=== PATIENT | male | born 1985 | race Caucasian/White ===

== ENCOUNTER 2019-12-05 12:12 | Emergency (ER) | payer OTHER, SELFPAY ==
[2019-12-05 12:13] VITALS: BP 128/82; PULSE 71; RESP 18; TEMP 36.9; O2SAT 98; BMI 38.5
--- NOTE | 2019-12-05 13:00 | XRR_ITS ---
PROCEDURE INFORMATION: Exam: XR Chest, 2 Views Exam date and time: 12/05/2019 1:13 PM Age: 34 years old Clinical indication: Cough with hemorrhage; Patient HX: HX of barretts esophagus, coughing up blood for 48 hours, not feeling good for 9 days TECHNIQUE: Imaging protocol: XR of the chest Views: 2 views. COMPARISON: No relevant prior studies available. FINDINGS: Lungs: Unremarkable. No consolidation. Pleural space: Unremarkable. No pleural effusion. No pneumothorax. Heart/Mediastinum: Unremarkable. No cardiomegaly. Bones/joints: No acute findings. XR/XR chest 2V* [id number] IMPRESSION: No acute findings.
--- NOTE | 2019-12-05 14:38 | W.ED.GENADLT ---
HPI - General Adult General: Chief complaint: General Medical Stated complaint: coughing up blood for 48hrs Time Seen by Provider: 12/05/19 14:26 Source: patient Mode of arrival: ambulatory Limitations: no limitations History of Present Illness: HPI narrative: Patient comes in today with complaints of cough and congestion for 9 days. Patient reports coughing today and noticing blood in the sputum. Patient appears well. Patient appears in no pain. Review of Systems General: Reports: 10 or more systems reviewed and unremarkable except in HPI and below Resp: Reports: productive cough PFSH ED PFSH: Social History Smoking and tobacco status: former smoker Physical Exam Const: COMMON NORMALS: no apparent distress and oriented x3 GENERAL APPEARANCE: cooperative HENMT: COMMON NORMALS: normocephalic, external ears normal, EAC's normal, TM's normal bilaterally and external nose normal HEAD & SCALP: normal to inspection and normocephalic FACE & SINUS: normal facial exam NOSE: external nose normal GENERAL EAR: hearing not grossly impaired EXTERNAL EAR: Yes external ears normal EXTERNAL AUDITORY CANAL: EAC's normal TYMPANIC MEMBRANE: TM's normal bilaterally MOUTH: oral and palatal mucosa normal THROAT: posterior oropharynx normal Eye: COMMON NORMALS: PERRL and EOMs intact bilaterally PUPIL: Yes PERRL Neck/C-Spine: COMMON NORMALS: full ROM and no lymphadenopathy Lymph: LYMPHATIC: no lymphedema noted Chest: COMMONS NORMALS: inspection of chest normal and palpation of chest normal Resp: COMMON NORMALS: normal respiratory effort and clear to auscultation bilaterally AUSCULTATION: clear to auscultation bilaterally Cardio: COMMON NORMALS: regular rate and regular rhythm RATE: regular rate RHYTHM: regular rhythm GI: COMMON NORMALS: normal to inspection, nondistended, normoactive bowel sounds and non-tender : COMMON NORMALS: Yes no CVA tenderness BLADDER/KIDNEY EXAM: Yes no CVA tenderness Back/Pelvis: COMMON NORMALS: no CVA tenderness and thoracic and lumbar spine normal to inspection Extremity: COMMON NORMALS: normal to inspection GENERAL: No edema Neuro: COMMON NORMALS: oriented x3, moves all extremities and no focal motor deficits Psych: COMMON NORMALS: mental status grossly normal and cooperative Skin: COMMON NORMALS: no rashes or lesions noted GENERAL SKIN EXAM: no rashes or lesions noted Course Vital Signs: Vital signs: Vital Signs Temperature 98.5 F 12/05/19 12:13 Pulse Rate 71 12/05/19 12:13 Respiratory Rate 18 12/05/19 12:13 Blood Pressure 128/82 12/05/19 12:13 Pulse Oximetry 98 12/05/19 12:13 MDM - General Adult MDM Narrative: Medical decision making narrative: Well-appearing male patient comes in today with complaints of cough with some blood in his sputum. On exam patient's respirations are even lungs are clear to auscultation. Abdomen soft nontender. Skin is warm and dry. Vital signs are normal. Differential diagnosis includes pneumonia, bronchitis, pulmonary emboli. Chest x-ray was normal. Patient reports no chest pain and shows no sign of discomfort or distress that would indicate pulmonary emboli. Suspect probable acute bronchitis we'll treat for acute bronchitis with recommendations to return for severe chest pain or worsening difficulty breathing. Patient reports understanding and agreed to plan. Discharge Plan Discharge Patient Disposition: Home, Self-Care Clinical Impression: Acute bronchitis Qualifiers: Bronchitis organism: unspecified organism Qualified Code(s): J20.9 - Acute bronchitis, unspecified Condition: Stable Prescriptions: New doxycycline hyclate 100 mg capsule 100 mg PO BID 10 Days Qty: 20 RF: 0 promethazine-DM 6.25-15 mg/5 mL syrup 5 ml PO Q6H PRN (Reason: cough) Qty: 120 RF: 0 Discharge Orders: Discharge Order (Routine); Ordered 12/05/19 Ordered By: Babak Wheatley Discharge Diet: Usual diet Discharge Activity: Increase activity as tolerated Patient Instructions: Acute Bronchitis (ED) Activity Restrictions/Additional Instructions: Drink plenty of fluids Take acetaminophen as needed for pain or fever Activity as tolerated Follow-up with primary care in one week Return to ER as needed for worsening symptoms Stand Alone Forms: Work/School Release Coding Level of Care Code ED Adult Protective Caseworker for Chg Fwd Exam Comprehensive
[2019-12-05] MEDS: dexamethasone 10 mg/mL INJ IM (14:52)
[2019-12-05] MEDS: doxycycline 100 mg Tablet PO (14:52)
[2019-12-05 15:27] VITALS: BP 140/91; PULSE 68; RESP 16; TEMP 36.8; O2SAT 97
== END 2019-12-05 15:28 | disposition home or self-care (01) ==
PROVIDERS: Emergency Provider Nurse Practitioner Family
DX: J20.9 Acute bronchitis, unspecified (principal); Z87.891 Personal history of nicotine dependence
CPT/HCPCS: 71046; 96372; 96375; 99281; 99283; J1100

== ENCOUNTER 2019-12-19 08:05 | Day surgery (SDC) | payer OTHER, SELFPAY ==
[2019-12-16 12:35] VITALS: BMI 38.3
[2019-12-19] VITALS (14 sets, daily range): BP systolic 102–133; BP diastolic 68–86; PULSE 80–96; RESP 14–22; TEMP 36.2–37.3; O2SAT 93–100
--- NOTE | 2019-12-19 08:30 | ANES.PREANE2 ---
Pre-Anesthetic Assessment Pre-Anesthetic Assessment: Height/Weight: Height 1.7 m Weight 111.13 kg Temp Pulse Resp BP Pulse Ox 97.3 F L 92 18 119/86 97 12/19/19 08:18 12/19/19 08:18 12/19/19 08:18 12/19/19 08:18 12/19/19 08:18 Preop Diagnosis: Umbilical hernia Proposed Procedure: Operation Date: 12/19/19 08:45 Proposed Procedures p Umbilical Hernia Repair w/ Mesh/open 43168 K42.9(Not Applicable) - Alexi Gill MD Was Beta Kiki taken within 24 hours: N/A Last intake: Intake Last Liquid Date 12/18/19 Last Liquid Time 18:00 Last Solid Date 12/18/19 Last Solid Time 18:00 Social: Social History: Alcohol (Several times a week) and No tobacco Exam: Pre-Anes Outpt Exam: alert, oriented x 3, clear to auscultation bilaterally and regular rate & rhythm Airway: Submandibular: WNL Cervical ROM: WNL MP: 1 Dentition: Full Additional comments: Dai Pulmonary: Pulmonary: None reported CV/HEM: CV/HEM: None reported : : None reported Hepatic: Hepatic: None reported GI: Comments: Crohn's Dz Metabolic: Metabolic: Morbid obesity and None reported Musc/skel: Musc/skel: None reported Neuropsych: Neuropsych: Anxiety Anesthetic Plan: ASA status: 2 Anesthesia: General Risk of > 500 ml blood loss (7ml/kg in children): No PFSH Anesthesia PFSH: Social History Smoking and tobacco status: former smoker Second hand smoke exposure: No Alcohol intake: never Adopted: No Caregiver/support person: Yes Lives independently: Yes Household members: spouse Housing: House Marital status: Data Anesthesia Cardiac Studies: No Data to Display
[2019-12-19] MEDS: sodium chloride 0.9% 1,000 ML 30 ML IV (08:34)
--- NOTE | 2019-12-19 10:15 | P.OP_ITS ---
Operative Report Date of procedure: December 19, 2019 Pre-op Diagnosis: Umbilical hernia Post-op diagnosis: same Procedure Done: Open repair of incarcerated umbilical hernia with Ventralight 3 x 3 inch mesh Specimens removed/disposition: Hernia sac Surgeon: Alexi Gill Anesthesia: General Estimated blood loss (mL): 10 Condition: stable Disposition: PACU Procedure: The patient was taken to the operating room and intubated under general anesthesia after IV antibiotic had been administered. The abdomen was prepped and draped in a sterile manner. Using a 15 blade the existing scar near the umbilicus was excised, subcutaneous tissue was divided using electrocautery and the hernia sac was identified. Using electrocautery the hernia sac was excised and the omentum within the hernia sac was reduced. Palpation of the adj acent abdominal wall through the hernia revealed couple of Algerian cheese defect superior and inferior to the umbilical hernia along the prior mini laparotomy scar. I therefore decided to place a mesh. 3 x 3 inch ventralight mesh was introduced and sutured to the abdominal wall as an underlay using 2-0 Prolene suture. The wound was irrigated with saline, hemostasis ensured and the fascia was approximated using 0 Vicryl suture. Subcutaneous tissue was approximated using 3-0 Vicryl suture and skin was closed using running subcuticular 4-0 Monocryl suture and surgical glue. 10 cc of 0.5% Marcaine was infiltrated around the incision. The patient was extubated and transferred to recovery room in stable condition.
--- NOTE | 2019-12-19 10:15 | W.PM.OPSUD ---
Surgery/Procedure H&P Update DATE OF PROCEDURE: December 19, 2019 DATE H&P PERFORMED: 12/13/19 H&P UPDATE INFORMATION: I have reviewed H&P completed within last 30 days, I have examined patient prior to procedure and No changes to prior documentation PREOP DIAGNOSIS: Umbilical hernia PLANNED PROCEDURE: Operation Date: 12/19/19 08:45 Proposed Procedures p Umbilical Hernia Repair w/ Mesh/open 75504 K42.9(Not Applicable) - Alexi Gill MD
--- NOTE | 2019-12-19 10:33 | SUR.PHASEI ---
1021 PATIENT TO PACU AT THIS TIME. RR EVEN AND UNLABORED. PLACED ON SIMPLE MASK AT 8L, SPO2 100%. DRESSING TO ABDOMEN, CDI.
[2019-12-19] MEDS: fentaNYL 50 mcg/mL INJ 2mL IVP (10:46)
--- NOTE | 2019-12-19 11:05 | SUR.PHASEI ---
1102 PATIENT TO OPS AT THIS TIME. RR EVEN AND UNLABORED. DRESSING TO ABDOMEN, CDI.
[2019-12-19] MEDS: HYDROcodone-acetaminophen 5-325 mg Tablet 1 TAB PO (11:25)
--- NOTE | 2019-12-19 12:16 | PM.PACU ---
PACU note Post-Anesthesia Exam: awake and vital signs stable Disposition: discharged
== END 2019-12-19 14:30 | disposition home or self-care (01) ==
PROVIDERS: PCP Nurse Practitioner; Visit Provider Surgery
PROC: (CPT 49587; principal; 2019-12-19 08:45)
DX: K42.0 Umbilical hernia with obstruction, without gangrene (principal); E66.01 Morbid (severe) obesity due to excess calories; Z68.38 Body mass index [BMI] 38.0-38.9, adult; F17.210 Nicotine dependence, cigarettes, uncomplicated; Z90.49 Acquired absence of other specified parts of digestive tract
CPT/HCPCS: 49587; 12345; 88302; J0690; J1100; J2405; J2704; J2710; J3010; J3490; J7030

== ENCOUNTER 2019-12-26 14:30 | Outpatient (CLI) | payer OTHER, SELFPAY ==
[2019-12-26 14:46] LABS: Add Urine Microscopic? NO
[2019-12-26 15:22] LABS: Bilirubin Urine Neg (NEGATIVE); Blood Urine Neg (Negative); Glucose Urine UA Norm (Normal); Ketones Urine Negative (Negative); Nitrate Urine Negative (Negative); Protein Urine Neg (Negative); Specific Gravity, Urine 1.015 (1.005-1.030); Urine Appearance Clear (CLEAR); Urine Color Yellow (Yellow); pH Urine 6.5 (5-7)
[2019-12-26 15:23] LABS: Leukocyte Esterase Urine Negative (Negative); Urobilinogen Urine Norm (Negative)
== END 2019-12-26 14:31 | disposition home or self-care (01) ==
LOC: LAB 14:34
PROVIDERS: PCP Nurse Practitioner; Visit Provider Surgery
DX: N99.89 Other postprocedural complications and disorders of genitourinary system (principal); Z98.890 Other specified postprocedural states; R39.198 Other difficulties with micturition
CPT/HCPCS: 81003; 87086

== ENCOUNTER 2020-03-08 11:19 | Outpatient (CLI) | payer OTHER, SELFPAY | END 2020-03-08 11:20 | disposition home or self-care (01) | LOC: LAB 11:22 | PROVIDERS: PCP Nurse Practitioner; Visit Provider Internal Medicine | DX: K52.9 Noninfective gastroenteritis and colitis, unspecified (principal); K50.818 Crohn's disease of both small and large intestine with other complication; E03.9 Hypothyroidism, unspecified; R63.4 Abnormal weight loss; R09.1 Pleurisy | CPT/HCPCS: 80053; 83630; 84443; 85025; 85651; 86140; 87493; 87506 ==

== ENCOUNTER 2020-05-09 10:05 | Outpatient (CLI) | payer OTHER, SELFPAY ==
[2020-05-09] MEDS: iohexol 300 mg/mL 50 mL Btl PO (10:28)
[2020-05-09] MEDS: iohexol 300 mg/mL 100 mL Btl IV (11:42)
--- NOTE | 2020-05-09 13:00 | CT_ITS ---
WS: [id number] CT ABDOMEN AND PELVIS WITH CONTRAST HISTORY: Inflammatory bowel disease. TECHNIQUE: Imaging performed of the abdomen and pelvis with IV contrast. Single phase imaging of the abdomen. Coronal and sagittal reformats are submitted. All CT scans at [facility] use at least one of these dose optimization techniques: automated exposure control; mA and/or kV adjustment per patient size (includes targeted exams where dose is matched to clinical indication); or iterativ e reconstruction. IV CONTRAST: Omnipaque 300; 95 mL IV. Oral contrast: Yes. DLP: 1226.39 mGycm COMPARISON: None available. Lower thorax: Lung bases are clear. Heart is normal size. No hiatal hernia. Liver/biliary system: Diffuse moderate hepatic steatosis. Liver is moderately enlarged extending over a length of 20 cm. No mass or bile duct dilatation. Gallbladder: Normal. No gallstones or wall thickening. No pericholecystic fluid. Pancreas: Normal. Spleen: Normal. Adrenal glands: Normal. Right kidney: Normal. Left kidney: Normal. Aorta: Normal. Lymphadenopathy: None. Free fluid: None. GI tract: No GI tract obstruction. The appendix is not identified. No mucosal thickening or stricture s or areas of dilatation. No inflammatory changes. Abdominal wall: Fat-containing umbilical hernia. Pelvis: Normal. Bones: Mild degenerative disc disease at L4-5. CT/CT abdomen pelvis w con* [id number] IMPRESSION: 1. No GI tract obstruction or acute inflammatory process identified on today's examination. 2. Moderate hepatomegaly and diffuse hepatic steatosis.
== END 2020-05-09 10:06 | disposition home or self-care (01) ==
LOC: RADWPI 10:09
PROVIDERS: PCP Nurse Practitioner; Visit Provider Internal Medicine
DX: K63.89 Other specified diseases of intestine (principal); R16.0 Hepatomegaly, not elsewhere classified; K76.0 Fatty (change of) liver, not elsewhere classified
CPT/HCPCS: 74177; Q9967

== ENCOUNTER 2020-08-21 14:40 | Outpatient (RCR) | payer OTHER, SELFPAY | END 2020-09-10 23:59 | disposition home or self-care (01) | LOC: SPT 14:40 | PROVIDERS: PCP Nurse Practitioner; Visit Provider Family Medicine Adult Medicine | DX: R07.89 Other chest pain (principal); Z91.81 History of falling | CPT/HCPCS: 97110; 97161 ==

== ENCOUNTER 2020-09-11 06:00 | Outpatient (RCR) | payer OTHER, SELFPAY | END 2020-10-11 23:59 | disposition home or self-care (01) | LOC: SPT 06:00 | PROVIDERS: PCP Nurse Practitioner; Visit Provider Family Medicine Adult Medicine | DX: R07.89 Other chest pain (principal); Z91.81 History of falling | CPT/HCPCS: 97110; 97530 ==

== ENCOUNTER 2023-04-21 09:18 | Outpatient (CLI) | payer OTHER, SELFPAY ==
--- NOTE | 2023-04-21 09:28 | CTR_ITS ---
PROCEDURE INFORMATION: Exam: CT Abdomen And Pelvis With Contrast Exam date and time: 04/21/2023 10:29 AM Age: 37 years old Clinical indication: Abdominal pain; Prior surgery; Surgery date: 6+ months; Surgery type: Colon; Additional info: Abd pain/hx of crohn's dz.No history of trauma or recent surgery is provided. TECHNIQUE: Imaging protocol: Computed tomography of the abdomen and pelvis with contrast. 218image(s) are provided. Radiation optimization: All CT scans at this facility use at least one of these dose optimization techniques: automated exposure control; mA and/or kV adjustment per patient size (includes targeted exams where dose is matched to clinical indication); or iterative reconstruction. Contrast material: OMNI 350; Contrast volume: 95 ml; Contrast route: INTRAVENOUS (IV); Other technique: Axial images are available with sagittal and coronal reconstruction views. Automated dose exposure control is utilized. The DLP is 737.06. REPORTING DATA: Count of CT and Cardiac NM exams in prior 12 months: This patient has received 0 known CTs and 0 known cardiac nuclear medicine studies in the 12 months prior to the current study. COMPARISON: CT abdomen pelvis w con* [id number] 05/09/2020 11:40 AM RADIATION DOSE METRICS: Total DLP (mGy-cm): 737.06 FINDINGS: Lungs: No lobar consolidation is appreciated. Liver: There is some hepatic steatosis appearance overall. Gallbladder and bile ducts: The gallbladder is slightly contracted. Pancreas: No interval pancreatic ductal dilatation or calcification is appreciated with subtle fatty replacement of the pancreatic head uncinate level. Spleen: Unremarkable. Adrenal glands: There is some chronic bandlike calcific appearance about the right adrenal medially similar overall. Kidneys and ureters: There is homogeneous overall renal parenchymal enhancement demonstrated bilaterally with no interval radiopaque obstructive calculus or hydronephrosis appreciated. Stomach and bowel: Some aspects of the colon are undistended. This may also be peristaltic related.There is some stool present limiting mucosal detail evaluation.The bowel gas pattern appears nonobstructive. There is a small sliding-type hiatal hernia demonstrated with slight gastroesophageal fold thickening. Appendix: The appendix is not definitively identified for evaluation with what appear to be adjacent interventional clips. Intraperitoneal space: No free air or free fluid collections are appreciated. Vasculature: No abdominal aortic aneurysmal dilatation or periaortic fluid is appreciated. Lymph nodes: There are subcentimeter predominant para-aortic and mesenteric lymph nodes overall present. Urinary bladder: The bladder is incompletely fluid filled for evaluation which may exagerate the wall thickness. This can also be seen with post inflammation sequela. Reproductive: Unremarkable as visualized. Bones/joints: Osseous alignment is maintained.No interval displaced fracture or dislocation is appreciated. There is some degenerative lumbar disc space changes present. Soft tissues: No radiopaque foreign body or subcutaneous emphysema is appreciated. There is some periumbilical lipomatous eventration with postsurgical appearance with no interval bowel or fluid currently appreciated. Other findings: There is some motion artifact present. No other significant interval changes are appreciated. CT/CT abdomen pelvis w con* [id number] IMPRESSION: The bowel gas pattern appears nonobstructive overall with no interval fluid collections or acute inflammatory stranding changes are appreciated.
[2023-04-21] MEDS: iohexol 350 mg/mL 500 mL Btl (per mL) PO (10:23)
[2023-04-21] MEDS: iohexol 350 mg/mL 500 mL Btl (per mL) IV (10:34)
== END 2023-04-21 09:19 | disposition home or self-care (01) ==
PROVIDERS: PCP Nurse Practitioner; Visit Provider Nurse Practitioner
DX: R10.9 Unspecified abdominal pain (principal); K50.90 Crohn's disease, unspecified, without complications
CPT/HCPCS: 74177; Q9967

== ENCOUNTER → 2024-08-15 07:30 | Outpatient (BNVA) | payer OTHER, SELFPAY | PROVIDERS: PCP Nurse Practitioner; Visit Provider Podiatrist Foot & Ankle Surgery | DX: M72.2 Plantar fascial fibromatosis; M79.671 Pain in right foot; M76.71 Peroneal tendinitis, right leg | CPT/HCPCS: 73630; 99203 ==

== ENCOUNTER → 2024-09-26 09:19 | Outpatient (BNVA) | payer OTHER, SELFPAY | PROVIDERS: PCP Nurse Practitioner; Visit Provider Podiatrist Foot & Ankle Surgery | DX: M76.71 Peroneal tendinitis, right leg | CPT/HCPCS: 99213 ==

== ENCOUNTER 2025-05-03 15:43 | Inpatient (IN) | payer OTHER, SELFPAY ==
--- OUTSIDE RECORDS SUMMARY | 2014-02-14 19:00 | XMS_ITS | Continuity of Care Document ---
Author Organization [facility] Address [address] [place] [address] Phone Care Team Providers Care Genetic Counsellor Name Role Phone Nai Espinal NP Unavailable Unavailable Procedures Procedure Date OFFICE/OUTPATIENT VISIT EST OFFICE/OUTPATIENT VISIT EST OFFICE/OUTPATIENT VISIT EST OFFICE/OUTPATIENT VISIT NEW DRUG TEST NOT ORDERED - Advance Directives Directive Yes / No Effective Date File Name No Information Encounters Encounter Description Practice Location Reason(s) For Visit Diagnoses Date Provider Providers Copied on Encounter OFFICE/OUTPAT IENT VISIT [facility] [place] [address], [place], [place], [id number], [place] tel:[phone] [facility] No Information Teddy Trimble. [address], [place], [place], [id number], [place]. tel:[phone] OFFICE/OUTPAT [place]ENT VISIT [facility] [place] [address], [place], [place], [id number], [place] tel:[phone] [facility] No Information Teddy Trimble. [address], [place], [place], [id number], [place]. tel:[phone] OFFICE/OUTPAT IENT VISIT [facility] [place], [address], [place], [place], [id number], [place] tel:[phone] [facility] No Information Teddy Trimble. [address], [place], [place], [id number], [place]. tel:[phone] OFFICE/OUTPAT IENT VISIT [facility], [address], [place], [id number], [place] tel:[phone] [facility] No Information Bro Lu. [address], [place], [id number], [place]. tel:[phone] Family History Family Member Type Diagnosis Age At Onset No Information Payers Payer name Insurance type Covered alliance party ID Authoriza tidimitrios(s) [facility] [employer] [id number] Social History Type Description Quantity Date Captured Comments Sex Male Smoking Status No Information Chief Complaint And Reason For Visit No Information Reason For Referral Reason For Referral No Information History Of Present Illness Encounter Date Complaint History Of Prese nt Illness No Information Functional Status Date Functional Assessmen t No Information Instructions Date Instruction Additional Infor mation No Information Assessments Type Assessment Date No Information Patient Care Teams Name Effective Dates (start - stop) Status Members No Information
--- OUTSIDE RECORDS SUMMARY | 2024-07-18 06:30 | XMS_ITS | Encounter Summary ---
Author Name [facility] [place] [facility] [place] Address [address] [place] [address] Care Team Providers Care Ship'S Pilot Name Role Phone TIAGO OROZCO Primary Care Provider Unavaila HUMAIRA Travis Unavailable Unavailable ESTELLE ORELLANA Unavailable Unavailable JAZMÍN ZHENG Unavailable Unavailable MARITZA SWAN Unavailable Unavailable DILCIA MANRIQUEZ Unavailable Unavailable CRISTINA LACY Unavailable Unavailable JHONNY ANTON Unavailable Unavailable FAHAD OJEDA Primary Care Provider Unavail able Insurance Providers: All historical and current Section Date Range: From patient's date of to the date document was created. This section includes the names of all active insurance providers for the patient. Insurance Provider Type of Coverage Plan Name Start of Policy Coverage End of Policy Coverage Group Number Member ID Insurance Provider's Telephone Number Policy Lord's Name Patient's Relationship to Policy Lord [employer]UE CROSS FEP PREFERRED PROVIDER ORGANIZAT ION (PPO) [id number]* May 22, 2013 [id number] Ana TORRES PATIENT BLUE CROSS FEP PREFERRED PROVIDER ORGANIZAT ION (PPO) [id number] May 22, 2013 [id number] Ana TORRES PATIENT BLUE SHIELD FEP PREFERRED PROVIDER ORGANIZAT ION (PPO) [id number] May 22, 2013 [id number] Ana TORRES PATIENT BLUE SHIELD FEP PREFERRED PROVIDER ORGANIZAT ION (PPO) [id number] May 22, 2013 33B [id number] [phone] Ana TORRES PATIENT [place] [employer] RX [id number] PRESCRIPT ION [id number] May 22, 2013 [id number] Ana TORRES PATIENT [employer] FEP RX [id number] PRESCRIPT ION [id number] May 22, 2013 [id number] Ana TORRES PATIENT Selected Encounter This section includes the information on record at [place] for the Encounter. Date/Time Encounter Type Encounter Description Reason Provider Source Jul 18, 2024 11:30 AM OFF/OP EST FEBRUARY X REQ PHY/QHP PRIMARY CARE/MEDICINE ICD-10-CM M79.671 Pain in right foot CHRIS CORDERO [place] Encounter Template Text not used by [facility] Assessments - Encounter Diagnoses This section includes the primary and secondary diagnoses documented for the Encounter. Date/Time Primary/Secondary Diagnosis Diagnosis Name Provider Source Jul 18, 2024 02:23 PM PRIMARY Pain in right foot CHRIS CORDERO [facility] Plan of Treatment: Future Appointments (+ 6 months) and Future Tests (+/- 45 days) The Plan of Treatment section includes future care activities for the patient from all [place] treatmentfacilities. This section includes future appointments and future orders which are active, pending or scheduled. Future Appointments This section includes appointments that were scheduled to occur 6 months from the date of the Encounter, up to a maximum of 20 appointments. The data comes from all [place] treatment facilities. Appointment Date/Time Appointment Type Appointme nt Facility Name Jul 26, 2024 10:10 AM AMBULATORY - NONE [place] [facility] Aug 01, 2024 01:30 PM AMBULATORY - MEDICINE [facility] Aug 08, 2024 09:00 AM AMBULATORY - MEDICINE [place] [facility] Sep 02, 2024 03:00 PM AMBULATORY - MEDICINE [facility] Sep 12, 2024 01:30 PM AMBULATORY - MEDICINE [facility] Sep 16, 2024 10:30 AM AMBULATORY - MEDICINE [facility] Oct 17, 2024 10:00 AM AM[facility]ULATORY [place]IC[place] [facility] Nov 07, 2024 10:00 AM [facility] [place]IC[place] [facility] [facility] Nov 21, 2024 10:00 AM [facility] [place] [facility] [facility] Nov 21, 2024 10:30 AM [facility] [place] [facility] [facility] Nov 22, 2024 11:30 AM AMBULATORY - MEDICINE [facility] Nov 22, 2024 11:45 AM [facility] [place] [facility] [facility] Nov 30, 2024 02:00 PM [facility] [place] [facility] [facility] Dec 05, 2024 09:00 AM AMBULATORY - MEDICINE [facility] Dec 09, 2024 09:30 AM AMBULATORY - MEDICINE [place] [facility] Dec 09, 2024 03:30 PM [facility] [place]IC[place] [facility] Jan 03, 2025 10:00 AM AMBULATORY - MEDICINE [place] [facility] Vital Signs: All taken on the encounter date This section contains inpatient and outpatient Vital Signs collected on the date of the Encounter. Date/Time Temperature Pulse Blood Pressure Respiratory Rate SP02 Pain Height Weight Body Mass Index Source Jul 18, 2024 01:59 PM 98.2 62 116/78 18 97 [facility] Social History: Smoking Status (Most current) and Tobacco Use (All prior to encounter date) This section includes the most current, and the historical, smoking and tobacco- related health factors from the [place] facility where the Encounter took place. Current Smoking Status This section includes the most current smoking, or tobacco-related health factor, from the [place] facility where the Encounter took place. Date/Time Current Smoking Status Comment Facil ity Nov 18, 2023 10:00 AM VA-TOBACCO FORMER USER [facility] Tobacco Use History This section includes a history of the smoking, or tobacco-related health factors, that were collected on or before the date of the Encounter. The data comes from the [place] facility where the Encounter took place. Date/Time Smoking Status/Tobacco Use Comment F acility Nov 18, 2023 10:00 AM VA-TOBACCO QUIT 5 TO < 15 YRS [facility] Sep 01, 2022 10:30 AM VA-TOBACCO NEVER USED [facility] Sep 30, 2021 10:30 AM [facility] Sep 30, 2021 10:30 AM VA-TOBACCO QUIT 5 TO < 15 YRS [facility] Dec 05, 2019 11:23 AM VA-TOBACCO FORMER USER [facility] [facility] Dec 05, 2019 11:23 AM [place] QUIT 5 TO < 15 YRS [facility] Advance Directives: All historical and current Section Date Range: From patient's date of to the date document was created. This section includes ALL of a patient's completed or amended [place] Advance and Rescinded Directives. The entries below indicate that a directive exists for the patient, but an actual copy is not included with this document. The data comes from all [place] facilities. Date Advance Directives Provider Source Jan 09, 2025 ADVANCE DIRECTIVE JONATHAN KRUEGERU [facility] Dec 19, 2021 ADVANCE DIRECTIVE JONATHAN KRUEGERU [facility] Radiology Reports: +/- 30 days of the encounter Radiology Reports For cases when an order for radiology services may have been completed prior to the date of the Encounter, the report list includes the Radiology Reports that were completed up to 30 days before dateof the Encounter. For cases when an order for radiology services may have been completed after the date of the Encounter, the report list also includes the Radiology Reports that were completed up to30 days after date of the Encounter. The data comes from all [place] treatment facilities. 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 No fracture or dislocation. No bony destruction. Early degenerative changes. Impression: Early degenerative changes Primary Interpreting Staff: OLEGARIO B ESTEPHANIA, RADIOLOGIST (Tow Truck Driver, no e-sig) /OLEGARIO Reyes [facility] Encounter Notes: All associated encounter notes This section contains the clinical notes associated to the Encounter. Date/Time Encounter Note(s) Provider Source Jul 20, 2024 07:09 PM ADDENDUM: LOCAL TITLE: Addendum STANDARD TITLE: ADDENDUM DATE OF NOTE: JUL 20, 2024@19:09:34 ENTRY DATE: JUL 20, 2024@19:09:35 AUTHOR: FAHAD OJEDA EXP COSIGNER: URGENCY: STATUS: COMPLETED Xray results as follows: Impression: Early degenerative changes Continue nsaids and rest. Supportive shoes will help. I know rest is not in his vocabulary.....but arthritis is definitely in his foot. Let me know if it does not improve. /lyn/ [facility] Signed: 07/20/2024 19:11 Receipt Acknowledged By: 07/21/2024 11:21 /es/ [facility] --- Original Document --- 07/18/24 NURSING NOTE PB: This is a 39 year old MALE with known Allergies as noted: PENICILLIN, ANTHRAX VACCINE C/C: reported to the clinic for right foot pain S: stated that his right foot has been sore for three months on the top right side of his foot. stated that he has not injured his foot that he knows of. The pain increases when he flexes his foot up and down. On the following Active Medications: Active Outpatient Medications (including Supplies): Active Outpatient Medications Status 1) ALBUTEROL 90MCG (CFC-F) 200D ORAL INHL INHALE 2 PUFFS ACTIVE ORAL INHALATION FOUR TIMES A DAY NEEDED FOR ASTHMA SHAKE WELL. RINSE MOUTHPIECE FREQUENTLY TO PREVENT CLOGGING. 2) BALSALAZIDE DISODIUM 750MG CAP TAKE ONE CAPSULE BY ACTIVE MOUTH THREE TIMES A DAY FOR BOWEL INFLAMMATION 3) CHOLECALCIF 50MCG (D3-2,000UNIT) TAB TAKE ONE TABLET ACTIVE BY MOUTH ONCE A DAY FOR VITAMIN D DEFICIENCY 4) FLUOXETINE HCL 20MG CAP TAKE TWO CAPSULES BY MOUTH ACTIVE EVERY MORNING FOR MOOD 5) LOPERAMIDE HCL 2MG CAP TAKE ONE CAPSULE BY MOUTH ACTIVE TWICE DAILY NEEDED FOR DIARRHEA 6) MIRTAZAPINE 30MG TAB TAKE ONE TABLET BY MOUTH AT ACTIVE BEDTIME FOR MOOD 7) PANTOPRAZOLE NA 40MG EC TAB TAKE ONE TABLET BY MOUTH ACTIVE EVERY MORNING BEFORE A MEAL FOR GASTROESOPHAGEAL REFLUX DISEASE TAKE 30 MINUTES BEFORE MEAL(S) O: ambulated into the clinic without assistance. Steady gait. Alert and oriented x4. Unlabored breathing. Right foot no swelling, bruising, redness, warmth, or deformity noted. A/P: Right foot x-ray ordered. Maxwell advised to use supportive care at this time heat/ice, topical analgesic rub, rest, and that the Provider will review x-ray and I will contact him with results and recommendations. Maxwell voiced understanding. Maxwell escorted to lab waiting area. RTC: as needed /lyn/ Thad Cordero RN [facility], AníbalNitish [facility] Signed: 07/18/2024 14:23 Receipt Acknowledged By: 07/20/2024 19:08 /lyn/ [facility] 07/21/2024 ADDENDUM STATUS: UNSIGNED You may not VIEW this UNSIGNED Addendum. FAHAD OJEDA Jul 18, 2024 02:04 PM NURSING PROGRESS N OTE: LOCAL TITLE: NURSING NOTE PB STANDARD TITLE: NURSING PROGRESS NOTE DATE OF NOTE: JUL 18, 2024@14:04 ENTRY DATE: JUL 18, 2024@14:04:38 AUTHOR: THAD CORDERO COSIGNER: URGENCY: STATUS: COMPLETED NURSING NOTE PB Has ADDENDA This is a 39 year old MALE with known Allergies as noted: PENICILLIN, ANTHRAX VACCINE C/C: reported to the clinic for right foot pain S: stated that his right foot has been sore for three months on the top right side of his foot. stated that he has not injured his foot that he knows of. The pain increases when he flexes his foot up and down. On the following Active Medications: Active Outpatient Medications (including Supplies): Active Outpatient Medications Status 1) ALBUTEROL 90MCG (CFC-F) 200D ORAL INHL INHALE 2 PUFFS ACTIVE ORAL INHALATION FOUR TIMES A DAY NEEDED FOR ASTHMA SHAKE WELL. RINSE MOUTHPIECE FREQUENTLY TO PREVENT CLOGGING. 2) BALSALAZIDE DISODIUM 750MG CAP TAKE ONE CAPSULE BY ACTIVE MOUTH THREE TIMES A DAY FOR BOWEL INFLAMMATION 3) CHOLECALCIF 50MCG (D3-2,000UNIT) TAB TAKE ONE TABLET ACTIVE BY MOUTH ONCE A DAY FOR VITAMIN D DEFICIENCY 4) FLUOXETINE HCL 20MG CAP TAKE TWO CAPSULES BY MOUTH ACTIVE EVERY MORNING FOR MOOD 5) LOPERAMIDE HCL 2MG CAP TAKE ONE CAPSULE BY MOUTH ACTIVE TWICE DAILY NEEDED FOR DIARRHEA 6) MIRTAZAPINE 30MG TAB TAKE ONE TABLET BY MOUTH AT ACTIVE BEDTIME FOR MOOD 7) PANTOPRAZOLE NA 40MG EC TAB TAKE ONE TABLET BY MOUTH ACTIVE EVERY MORNING BEFORE A MEAL FOR GASTROESOPHAGEAL REFLUX DISEASE TAKE 30 MINUTES BEFORE MEAL(S) O: ambulated into the clinic without assistance. Steady gait. Alert and oriented x4. Unlabored breathing. Right foot no swelling, bruising, redness, warmth, or deformity noted. A/P: Right foot x-ray ordered. Maxwell advised to use supportive care at this time heat/ice, topical analgesic rub, rest, and that the Provider will review x-ray and I will contact him with results and recommendations. voiced understanding. escorted to lab waiting area. RTC: as needed /lyn/ Thad Cordero RN [facility], [facility] Signed: 07/18/2024 14:23 Receipt Acknowledged By: 07/20/2024 19:08 /lyn/ Fahad Ojeda [facility] 07/20/2024 ADDENDUM STATUS: COMPLETED Xray results as follows: Impression: Early degenerative changes Continue nsaids and rest. Supportive shoes will help. I know rest is not in his vocabulary.....but arthritis is definitely in his foot. Let me know if it does not improve. /lyn/ Fahad Ojeda [facility] Signed: 07/20/2024 19:11 Receipt Acknowledged By: 07/21/2024 11:21 /lyn/ Thad Cordero RN [facility], [facility] 07/21/2024 ADDENDUM STATUS: COMPLETED Contacted Maxwell reviewed Provider's note. voiced understanding. /lyn/ Thad Cordero RN [facility], [facility] Signed: 07/21/2024 11:23 THAD CORDERO [facility]
--- OUTSIDE RECORDS SUMMARY | 2024-11-22 06:45 | XMS_ITS | Encounter Summary ---
Author Name [facility] Organization [facility] Address [address] [place] [address] Care Team Providers Care Curator [employer] Name Role Phone TIAGO OROZCO Primary Care [...] (PPO) [id number] 2* May 22, 2013 [id number] Ana TORRES PATIENT BLUE CROSS FEP PREFERRED PROVIDER ORGANIZAT ION (PPO) [id number] May 22, 2013 33B [id number] [phone] Ana TORRES PATIENT BLUE SHIELD FEP PREFERRED PROVIDER ORGANIZAT ION (PPO) [id number] 2 May 22, 2013 [id number] Ana TORRES PATIENT BLUE SHIELD FEP PREFERRED PROVIDER ORGANIZAT ION (PPO) [id number] May 22, 2013 33B [id number] [phone] Ana TORRES PATIENT CAREMARK FEP RX [id number] PRESCRIPT ION [id number] May 22, 2013 [id number] Ana TORRES PATIENT [place]EMARK FEP RX [id number] PRESCRIPT ION [id number] May 22, 2013 [id number] Ana TORRES PATIENT Selected Encounter This section includes the information on record at ME for the Encounter. Date/Time Encounter Type Encounter Description Reason Provider Source Nov 22, 2024 11:45 AM Outpatient Encounter PRIMARY CARE/MEDICINE ICD-10-CM Z00.01 Encounter for general adult medical exam w abnormal findings ENRIQUE OJEDA [employer] Encounter Template Text not used by ME Assessments - Encounter Diagnoses This section includes the primary and secondary diagnoses documented for the Encounter. 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 dysplasia MAAME OJEDA [facility] Nov 22, 2024 06:34 PM SECONDARY Crohn's disease of both small and lg int w unsp comp MAAME OJEDA [facility] Nov 22, 2024 06:34 PM SECONDARY Esophagitis, unspecified without bleeding MAAME OJEDA [facility] Nov 22, 2024 06:34 PM SECONDARY Hyperlipidemia, unspecified MAAME OJEDA NE [facility] Nov 22, 2024 06:34 PM SECONDARY Insomnia, unspecified MAAME OJEDA [facility] Nov 22, 2024 06:34 PM SECONDARY Major depressive disorder, single episode, unspecified MAAME OJEDA [facility] Plan of Treatment: Future Appointments (+ 6 months) and Future Tests (+/- 45 days) The Plan of Treatment section includes future care activities for the patient from all VA treatmentfacilities. This section includes future appointments and future orders which are active, pending or scheduled. Future Appointments This section includes appointments that were scheduled to occur 6 months from the date of the Encounter, up to a maximum of 20 appointments. The data comes from all [facility]. Appointment Date/Time Appointment Type Appointme nt Facility Name Nov 30, 2024 02:00 PM [facility] [place] [facility]IC[place] [facility] Dec 05, 2024 09:00 AM AMBULATORY - MEDICINE [facility] Dec 09, 2024 09:30 AM [facility] [place]IC[place] [facility] Dec 09, 2024 03:30 PM AMBULATORY - MEDICINE [facility] Jan 03, 2025 10:00 AM AMBULATORY - MEDICINE [place] [facility] Feb 06, 2025 01:30 PM [facility] February 28, 2025 09:00 AM AMBULATORY - MEDICINE [facility] February 28, 2025 10:30 AM AMBULATORY - MEDICINE [facility] March 02, 2025 10:30 AM [facility] Mar 29, 2025 02:00 PM AMBULATORY - NONE [place] [facility] Apr 07, 2025 12:00 PM AMBULATORY - MEDICINE [facility] Active, Pending, and Scheduled Orders This section includes a listing of several types of active, pending, and scheduled orders, including clinic medications orders, diagnostic test orders, procedure orders and consult orders; where the start date of the order is 45 days before the date of the Encounter or 45 days after the date of theEncounter. The data comes from all [facility]. Test Date/Time Test Type Test Details Facility Name Dec 09, 2024 04:14 PM Laboratory - Chemi stry Order POC UA (STL-PB-MA) URINE SP [facility] Lab Results: +/- 30 days of the encounter This section includes the Chemistry and Hematology Lab Results on record with ME for the patient. Radiology Reports and Pathology Reports are provided separately, in subsequent sections. Lab Results This section contains the Chemistry/Hematology Results that were resulted 30 days before or 30 daysafter the date of the Encounter. Date/Time Source Result Type Result - Unit Interpretation Reference Range Specimen Type Comment Dec 09, 2024 04:16 PM [facility] POC UA (STL-PB-MA) URINE Specimen Type: URINE No comment entered. Ordering Provider: FAHAD OJEDA Report Released Date/Time: Dec 09, 2024 04:23 PM Reporting Lab: [facility] [address] [facility] [address] Performing Lab: [facility] [address] [facility] [address] [facility] [address] PROTEIN POC UA Negative mg/dL Negative BLOOD POC UA Negative Negative LEUKOCYTES POC UA Negative Negative COLOR POC UA Yellow YELLOW SPEC GRAV POC UA 1.015 1.005-1.030 UROBILINOGEN POC UA 1.0 {Cameron'U}/dL 0 .1-1.0 BILIRUBIN POC UA Negative Negative KETONES POC UA Negative mg/dL Negative GLUCOSE POC UA Negative mg/dL Negative pH POC UA 7.5 5.0-8.0 NITRITE POC UA Negative Negative CLARITY POC UA Clear CLEAR Nov 22, 2024 12:[address] [facility] PROTEIN ELECTROPHORESIS BLOOD SERUM Specimen Type: SERUM Comment: Reference Range: None Detected NOTE: THIS RESULT IS FLAGGED ABNORMAL Evaluation reveals a restricted band (M-spike) migrating in the gamma globulin region. If not already requested, Immunofixation should be considered. Test Performed by [facility], [facility], [address] [place] [address] Santos Medley M.D., Ph.D., Director of Laboratories , [place] [id number] Ordering Provider: FAHAD OJEDA Report Released Date/Time: Nov 22, 2024 11:58 AM Reporting Lab: [place] [facility] [address] [place] [address] Performing Lab: [place] [facility] [address] [facility] ALPHA-1 GLOBULIN(SO-PB-STL) 0.3 g/dL 0.2 -0.3 ALPHA-2 GLOBULIN(SO-PB-STL) 0.8 g/dL 0.5 -0.9 BETA 1 GLOBULIN(SO-PB-STL) 0.4 g/dL 0.4- 0.6 GAMMA GLOBULIN (SO-PB-STL) 1.5 g/dL 0.8- 1.7 TOTAL PROTEIN (SO-PB-STL) 8.0 g/dL 6.1-8 .1 ALBUMIN(ELECTROPHORESIS 4.7 g/dL 3.8-4.8 BETA 2 GLOBULIN (SO-PB) 0.3 g/dL 0.2-0.5 INTERPRETATION (STL-PB) SEE NOTE H ABNORMAL PROTEIN BAND 1 (SO-PB-STL) 0.6 g/dL H Nov 22, 2024 12:[address] [facility] KAPPA/LAMBDA LIGHT CHAINS, TOTAL (PB) SERUM S pecimen Type: SERUM Comment: This assay provides a measurement of the total kappa and total lambda light chains, ie., the amount of free (unattached) light chain in circulation and the amount of light chain linked to heavy chain in intact immunoglobulin molecules. Assays for serum free light chain only, kappa and lambda with ratio, may be more useful in evaluating and managing light chain gammo- pathies including those associated with myeloma, lymphoproliferative disorders, and amyloidosis. Test Performed by [facility], [facility], [address] [place] [address] Santos Medley M.D., Ph.D., Director of Laboratories , [place] [id number] Ordering Provider: FAHAD OJEDA Report Released Date/Time: Nov 22, 2024 11:58 AM Reporting Lab: [place] [facility] [address] [facility] [place] [address] Performing Lab: [address] KAPPA/LAMBDA RATIO 0.63 L 1.29-2.55 KAPPA CHAINS (PB) 210 mg/dL 176-443 LAMBDA CHAINS (PB) 332 mg/dL H 91-240 Nov 22, 2024 12:[address] [facility] ANTI-NUCLEAR ANTIBODY (STL-PB) SERUM Specimen Type: SERUM No comment entered. Ordering Provider: FAHAD OJEDA Report Released Date/Time: Nov 22, 2024 11:58 AM Reporting Lab: [facility] [address] [facility] [address] Performing Lab: [facility] [address] [facility] [address] ANTI-NUCLEAR ANTIBODY (STL-PB) NEGATIVE Nov 22, 2024 12:[address] [facility] VITAMIN D, 25-HYDROXY SERUM Specimen Type: SE RUM No comment entered. Ordering Provider: FAHAD OJEDA Report Released Date/Time: Nov 22, 2024 11:58 AM Reporting Lab: [place] [facility] [address] [place] [address] Performing Lab: [place] [facility] [address] [place] [address] VITAMIN D, 25-HYDROXY 27.9 ng/mL L 30-96 Nov 22, 2024 12:[address] [facility] URINALYSIS (STL-PB) URINE Specimen Type: URIN E No comment entered. Ordering Provider: FAHAD OJEDA Report Released Date/Time: Nov 22, 2024 11:58 AM Reporting Lab: [place] [facility] [address] [place] [address] Performing Lab: [place] [facility] [address] [place] [address] URINE COLOR [place] Yellow U.BILIRUBIN NEGATIVE mg/dL Negative U.PH 6.0 5.0-8.0 APPEARANCE TURBID H Clear U.NITRITE NEGATIVE mg/dL Negative BUDDING YEAST MANY /[HPF] H Negative-Rare MUCUS RARE /[LPF] Negative-Rare AMORPHOUS CRYSTALS OCCASIONAL /[HPF] H Neg ative-Rare URN.GLUCOSE NORMAL mg/dL Negative URN.PROTEIN NEGATIVE mg/dL URN.UROBILINOGEN NORMAL mg/dL Normal URN.BLOOD NEGATIVE mg/dL Negative-Trace URN.KETONES NEGATIVE mg/dL Negative-Trac e URN.LEUK.EST. NEGATIVE Negative-Trace URN.SPECIFIC GRAVITY 1.032 H 1.005-1.029 Nov 22, 2024 12:[address] [facility] HGA1C BLOOD Specimen Type: BLOOD No comment entered. Ordering Provider: FAHAD OJEDA Report Released Date/Time: Nov 22, 2024 11:58 AM Reporting Lab: [place] [facility] [address] [place] [address] Performing Lab: [place] [facility] [address] [place] [address] HGA1C 5.3 4.0-6.0 Nov 22, 2024 12:[address] [facility] COMPREHENSIVE METABOLIC PANEL PLASMA Specimen Type: PLASMA No comment entered. Ordering Provider: FAHAD OJEDA Report Released Date/Time: Nov 22, 2024 11:58 AM Reporting Lab: [place] [facility] [address] [place] [address] Performing Lab: [place] [facility] [address] [place] [id number] CREATININE 0.77 mg/dL 0.7-1.3 UREA NITROGEN 23 mg/dL 9-25 GLUCOSE 111 mg/dL H 72-99 SODIUM 140 meq/L 136-145 POTASSIUM 3.8 meq/L 3.5-5 CHLORIDE 107 meq/L 98-107 CARBON DIOXIDE 22 meq/L 22-31 CALCIUM 9.0 mg/dL 8.4-10.4 PROTEIN 8.5 g/dL 6-8.6 ALBUMIN 4.6 g/dL 3.4-5 TOTAL BILIRUBIN 0.9 mg/dL 0.2-1.2 ALKALINE PHOSPHATASE 57 U/L 40-150 AST/SGOT 20 U/L 5-34 ALT/SGPT 22 U/L 8-40 EGFR (CKD-EPI 2020) 118 Nov 22, 2024 12:[address] [facility] CBC BLOOD Specimen Type: BLOOD No comment entered. Ordering Provider: FAHAD OJEDA Report Released Date/Time: Nov 22, 2024 11:58 AM Reporting Lab: [place] [facility] [address] [place] [facility] Performing Lab: [place] [facility] [address] [place] [facility] WBC 12.2 10*3/uL H 3.6-11.2 RBC 5.07 10*6/uL 4.10-5.70 HGB 14.5 g/dL 13.1-16.8 HCT 43.8 38.2-48.4 MCV 86.4 fL 80.0-100.0 MCH 28.6 pg 27.0-34.0 MCHC 33.1 g/dL 33.0-36.0 PLT 247 10*3/uL 150-400 MPV 11.9 fL H 7.5-11.2 RDW 14.0 11.8-15.1 LYMPHOCYTES, AUTO % 7.7 MONOCYTES, AUTO % 3.6 NEUTROPHILS, AUTO % 87.8 EOSINOPHILS, AUTO % 0.4 BASOPHILS, AUTO % 0.2 LYMPHOCYTES, ABSOLUTE 0.93 10*3/uL 0.77- 4.50 MONOCYTES, ABSOLUTE 0.44 10*3/uL 0.19-0. 8 NEUTROPHILS, ABSOLUTE 10.66 10*3/uL H 2.10 -8.00 EOSINOPHILS, ABSOLUTE 0.05 10*3/uL 0.00- 0.60 BASOPHILS, ABSOLUTE 0.03 10*3/uL 0.00-0. 20 IMMATURE GRANS, AUTO % 0.3 IMMATURE GRANS, AUTO ABS 0.04 10*3/uL 0. 00-0.05 Nov 22, 2024 12:[address] [facility] CHOLESTEROL PANEL (PB) PLASMA Specimen Type: P MICHELLE No comment entered. Ordering Provider: FAHAD OJEDA Report Released Date/Time: Nov 22, 2024 11:58 AM Reporting Lab: [place] [facility] [address] [place] [facility] Performing Lab: [place] [facility] [address] [place] [facility] CHOLESTEROL 208 mg/dL H 0-200 TRIGLYCERIDE 120 mg/dL 0-150 CALCULATED LDL 137.0 mg/dL HDL(New) 47.0 mg/dL H >40 HDL % OF TOTAL CHOLESTEROL (PB) 22.6 >25 Nov 22, 2024 12:[address] [facility] TSH (MA-PB) SERUM Specimen Typ e: SERUM No comment entered. Ordering Provider: FAHAD OJEDA Report Released Date/Time: Nov 22, 2024 11:58 AM Reporting Lab: [place] [facility] [address] [place] [facility] Performing Lab: [place] [facility] [address] [place] [address] TSH 0.494 u[IU]/mL 0.47-5 Vital Signs: All taken on the encounter date This section contains inpatient and outpatient Vital Signs collected on the date of the Encounter. Date/Time Temperature Pulse Blood Pressure Respiratory Rate SP02 Pain Height Weight Body Mass Index Source Nov 22, 2024 11:45 AM 98.2 81 120/81 18 96 212.1 33 [facility] Social History: Smoking Status (Most current) and Tobacco Use (All prior to encounter date) This section includes the most current, and the historical, smoking and tobacco- related health factors from the ME facility where the Encounter took place. Current Smoking Status This section includes the most current smoking, or tobacco-related health factor, from the ME facility where the Encounter took place. Date/Time Current Smoking Status Comment Facil ity Nov 18, 2023 10:00 AM VA-TOBACCO FORMER USER [facility] Tobacco Use History This section includes a history of the smoking, or tobacco-related health factors, that were collected on or before the date of the Encounter. The data comes from the ME facility where the Encounter took place. Date/Time Smoking Status/Tobacco Use Comment F acility Nov 18, 2023 10:00 AM VA-TOBACCO QUIT 5 TO < 15 YRS [facility] Sep 01, 2022 10:30 AM VA-TOBACCO NEVER USED [facility] Sep 30, 2021 10:30 AM VA-TOBACCO FORMER USER [facility] Sep 30, 2021 10:30 AM VA-TOBACCO QUIT 5 TO < 15 YRS [facility] Dec 05, 2019 11:23 AM VA-TOBACCO FORMER USER [facility] Dec 05, 2019 11:23 AM VA-TOBACCO QUIT 5 TO < [address] [facility] Advance Directives: All historical and current Section Date Range: From patient's date of to the date document was created. This section includes ALL of a patient's completed or amended ME Advance and Rescinded Directives. The entries below indicate that a directive exists for the patient, but an actual copy is not included with this document. The data comes from all ME facilities. Date Advance Directives Provider Source Jan 09, 2025 ADVANCE DIRECTIVE JONATHAN KRUEGER [facility] Dec 19, 2021 ADVANCE DIRECTIVE JONATHAN KRUEGER [facility] Radiology Reports: +/- 30 days of the [...] the Encounter. The data comes from all ME treatment facilities. 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 Heart size is normal. Impression: No acute process Primary Interpreting Staff: JUANITA STAPLETON RADIOLOGIST (Supportive Employment Case Manager, no e-sig) /JUANITA Young [facility] Encounter Notes: All associated encounter notes This section contains the clinical notes associated to the Encounter. Date/Time Encounter Note(s) Provider Source Nov 22, 2024 01:23 PM PRIMARY CARE NURSI NG NOTE: LOCAL TITLE: PRIMARY CARE NURSING PROGRESS NOTE (TEXT) NURSING P STANDARD TITLE: PRIMARY CARE NURSING NOTE DATE OF NOTE: NOV 22, 2024@13:23 ENTRY DATE: NOV 22, 2024@13:23:15 AUTHOR: THAD CORDERO EXP COSIGNER: URGENCY: STATUS: COMPLETED Established Patient VANESSA TORRES IS A 39 YEAR OLD MALE BEING SEEN IN CLINIC NOV 22, 2024. = = REASON FOR VISIT: Annual and N/V and loose stools Are you receiving care any where other than the ME? No HEALTH AND SURGICAL HISTORY: Does patient report using home oxygen? No CURRENT ACTIVE MEDICATIONS FOR REVIEW: Allergies/ADRs (Tool #5) FACILITY ALLERGY/ADR -------- [facility] ANTHRAX VACCINE [facility] PENICILLIN [facility] ANTHRAX VACCINE [facility] PENICILLIN [facility] ANTHRAX VACCINE [facility]ENIC[facility] PENICILLIN Med. Reconciliation (Tool #1) INCLUDED IN THIS LIST: Alphabetical list of active outpatient prescriptions dispensed from this ME (local) and dispensed from another ME or [facility] facility (remote) as well as inpatient orders (local pending and active), local clinic medications, locally documented non-VA medications, and local prescriptions that have or been discontinued in the past 90 days. Non-VA Meds Last Documented On: Data not found NOTE The display of VA prescriptions dispensed from another ME or [facility] facility (remote) is limited to active outpatient prescription entries matched to National Drug File at the originating site and may not include some items such as investigational drugs, compounds, etc. NOT INCLUDED IN THIS LIST: Medications self-entered by the patient into personal health records (i.e. [employer]) are NOT included in this list. Non-VA medications documented outside this ME, remote inpatient orders (regardless of status) and remote clinic medications are NOT included in this list. The patient and provider must always discuss medications the patient is taking, regardless of where the medication was dispensed or obtained. OUTPT ACETAMINOPHEN 325MG TAB (Status = Pending) TAKE TWO TABLETS BY MOUTH FOUR TIMES A DAY NEEDED CAUTION: DO NOT EXCEED 4000mg PER DAY ACETAMINOPHEN (APAP) FROM ALL MEDS. Login Date: 11/22/24 Qty/Days Supply: 100/13 Refills Ordered: 3 OUTPT ALBUTEROL 90MCG (CFC-F) 200D ORAL INHL (Status = Active) INHALE 2 PUFFS ORAL INHALATION FOUR TIMES A DAY NEEDED FOR ASTHMA SHAKE WELL. RINSE MOUTHPIECE FREQUENTLY TO PREVENT CLOGGING. Rx# [id number] Last Released: 07/28/24 Qty/Days Supply: Rx Expiration Date: 02/02/25 Refills Remainin Indication: FOR ASTHMA OUTPT BALSALAZIDE DISODIUM 750MG CAP (Status = Active) TAKE ONE CAPSULE BY MOUTH THREE TIMES A DAY FOR BOWEL INFLAMMATION Rx# [id number] Last Released: 07/28/24 Qty/Days Supply: 270 Rx Expiration Date: 05/19/25 Refills Remainin Indication: FOR BOWEL INFLAMMATION OUTPT CHOLECALCIF 50MCG (D3-2,000UNIT) TAB (Status = Active) TAKE ONE TABLET BY MOUTH ONCE A DAY FOR VITAMIN D DEFICIENCY Rx# [id number] Last Released: 07/26/24 Qty/Days Supply: 90 Rx Expiration Date: 05/19/25 Refills Remainin Indication: FOR VITAMIN D DEFICIENCY OUTPT FLUOXETINE HCL 20MG CAP (Status = Discontinued) TAKE TWO CAPSULES BY MOUTH EVERY MORNING FOR MOOD Rx# [id number] Last Released: 07/28/24 Qty/Days Supply: 180 Rx Expiration Date: 01/15/25 Refills Remainin OUTPT FLUOXETINE HCL 20MG CAP (Status = Pending) TAKE 3 CAPSULES BY MOUTH EVERY MORNING FOR MOOD Login Date: 11/22/24 Qty/Days Supply: 270/90 Refills Ordered: 3 OUTPT LOPERAMIDE HCL 2MG CAP (Status = Active) TAKE ONE CAPSULE BY MOUTH TWICE DAILY NEEDED FOR DIARRHEA Rx# [id number] Last Released: 07/28/24 Qty/Days Supply: 180 Rx Expiration Date: 05/19/25 Refills Remainin Indication: FOR DIARRHEA OUTPT MELOXICAM 15MG TAB (Status = Discontinued) TAKE ONE TABLET BY MOUTH ONCE A DAY Rx# [id number] Last Released: 09/21/24 Qty/Days Supply: Rx Expiration Date: 09/16/25 Refills Remainin OUTPT MELOXICAM 15MG TAB (Status = Discontinued) TAKE ONE TABLET BY MOUTH ONCE A DAY Rx# [id number] Last Released: 10/13/24 Qty/Days Supply: Rx Expiration Date: 09/27/25 Refills Remainin OUTPT MIRTAZAPINE 30MG TAB (Status = Active) TAKE ONE TABLET BY MOUTH AT BEDTIME FOR MOOD Rx# [id number] Last Released: 07/28/24 Qty/Days Supply: Rx Expiration Date: 01/15/25 Refills Remainin OUTPT PANTOPRAZOLE NA 40MG EC TAB (Status = Active) TAKE ONE TABLET BY MOUTH EVERY MORNING BEFORE A MEAL FOR GASTROESOPHAGEAL REFLUX DISEASE TAKE 30 MINUTES BEFORE MEAL(S) Rx# [id number] Last Released: 07/28/24 Qty/Days Supply: Rx Expiration Date: 05/19/25 Refills Remainin Indication: FOR GASTROESOPHAGEAL REFLUX DISEASE SUPPLIES PHARMACY TERMS AND POSSIBLE PATIENT ACTIONS INPT = ME inpatient order IV = ME intravenous medication OUTPT = ME outpatient prescription PHARMACY POSSIBLE PATIENT TERMS EXPLANATION ACTIONS -------- ---- ACTIVE A prescription that can be If you have refills, filled at the local VA pharmacy. you may request a refill of this prescription from your VA pharmacy. CLINIC A medication you received during If you have questions a visit to a VA clinic or about this medication emergency department. contact your VA healthcare team. DISCONTINUED A prescription your provider has Contact your VA stopped. It is no longer healthcare team if you available to be sent to you or need more of this picked up at the ME pharmacy medication. window. A prescription which is too old Contact your VA to fill. This does not refer to healthcare team if you the expiration date of the need more of this medication in the container. medication. NON-VA A medication that came from If this medication someplace other than a VA information is pharmacy. This may be a incorrect or out of prescription from either the VA date, please tell your or non VA providers that was VA healthcare team. filled outside the VA. Or, it may be an jezz-uzy-amekqkb (OTC), herbal, dietary supplements or sample medication. ON HOLD An active prescription that will Contact your VA not be filled until pharmacy pharmacy when you need resolves the issue. more of this medication. PARKED An active prescription that will Contact your VA not be filled until the patient pharmacy when you need requests it. this medication. PENDING This prescription order has been If you have been sent to the pharmacy for review instructed to start and is not ready yet. this medication now, contact your VA pharmacy. SUSPENDED An active prescription that is Contact your ME not scheduled to be filled yet. pharmacy if you need You should receive it before this medication now. you run out. Medication list reviewed with Patient Patient/Caregiver reports taking medications as ordered. IS PATIENT TAKING ANY OVER THE COUNTER MEDICATIONS, SUCH VITAMINS OR HERBAL SUPPLEMENTS, INCLUDING ANY MEDICATIONS PRESCRIBED BY ANOTHER PHYSICIAN? No Does patient have any new allergies to report since last visit? NO VITALS: TEMPERATURE: 98.2 F [36.8 C] (11/22/2024 11:45) BP: 120/81 (11/22/2024 11:45) RESP: 18 (11/22/2024 11:45) PULSE: 81 (11/22/2024 11:45) HT: 67 in [170.2 cm] (11/18/2023 10:11) WT: 212.1 lb [96.21 kg] (11/22/2024 11:45) BMI: 33.3 PAIN ASSESSMENT: (Most Recent Pain Score in Vitals Package: 0 (11/18/2023 10:11) ) The patient indicated that they and their close contacts have not traveled outside of the [place] in the past 21 days. The patient reports the following symptoms: No symptoms present The patient is not immunocompromised. The patient does not report having a history of Multi Drug Resistant Organism (MDRO) within the last five years. The patient does not report having been exposed to measles, chickenpox, or zoster in last 30 days. This patient's last pain assessment score was: 0 (11/18/2023 10:11). A detailed pain assessment showed the following: Pain characteristics (per patient's own words) Cramping Location of current pain Abdomen Onset/Duration of the current pain. Constant or variable? More than a year STRESS: Thank you for your service. Now let us serve you. At the [facility], we strive to provide you with exceptional health care that improves your health and well-being. Are you feeling sad, empty, or depressed? No Do you need to talk about things in your life that worry you or cause you stress? No Do you need to talk about personal problems, family problems, alcohol use, drug use, or mental or emotional illness? No SUICIDE SCREENING: The patient was asked, Over the past two weeks, how often have you been bothered by thoughts that you would be better off or of hurting yourself in some way? Not At All SPIRITUAL ASSESSMENT: Are there mu-ism practices or spiritual concerns you want the dairy science teacher, your physician, and other health care team members to immediately know about? No Patient advised to call the clinic for any concerns, questions, or symptoms. Patient and/or caregiver verbalized understanding of plan of care. Suicide Screen - V: C-SSRS Screening [place] Suicide Severity Rating Scale (C-SSRS) screener 1. Over the past month, have you wished you were or wished you could go to sleep and not wake up? Yes 2. Over the past month, have you had any actual thoughts of killing yourself? No 3. Over the past month, have you been thinking about how you might do this? Response not required due to responses to other questions. 4. Over the past month, have you had these thoughts and had some intention of acting on them? Response not required due to responses to other questions. 5. Over the past month, have you started to work out or worked out the details of how to kill yourself? Response not required due to responses to other questions. 6. If yes, at any time in the past month did you intend to carry out this plan? Response not required due to responses to other questions. 7. In your lifetime, have you ever done anything, started to do anything, or prepared to do anything to end your life (for example, collected pills, obtained a gun, gave away valuables, went to the roof but didn't jump)? No 8. If YES, was this within the past 3 months? Response not required due to responses to other questions. Depression Screening - V: Perform PHQ-2 A PHQ-2 screen was performed. The score was 6 which is a positive screen for depression. Over the past two weeks, how often have you been bothered by the following problems? 1. Little interest or pleasure in doing things Nearly every day 2. Feeling down, depressed, or hopeless Nearly every day Licensed Independent Provider notified of positive screen and need for follow-up. Name of provider notified: Fahad Ojeda APRN Homelessness/Food Insecurity Screen - DI,L,N,P,PH,PS,S,U: In the past 2 months, have you been living in stable housing that you own, rent, or stay in as part of a household? Yes - Living in stable housing. Are you worried or concerned that in the next 2 months you may NOT have stable housing that you own, rent, or stay in as part of a household? No - Not worried about housing near future The reports the following: Within the past 12 months, you worried whether your food would run out before you got money to buy more. Never true Within the past 12 months, the food you bought just didn't last and you didn't have money to get more. Never true /lyn/ Thad Cordero RN [facility], JJP [facility] Signed: 11/22/2024 13:26 THAD CORDERO [facility] Nov 22, 2024 12:12 PM PRIMARY CARE PROGR ESS NOTE: LOCAL TITLE: PRIMARY CARE CLINIC PROGRESS NOTE PB STANDARD TITLE: PRIMARY CARE PROGRESS NOTE DATE OF NOTE: NOV 22, 2024@12:12 ENTRY DATE: NOV 22, 2024@12:12:26 AUTHOR: FAHAD OJEDAIGNER: URGENCY: STATUS: COMPLETED PROVIDER ASSESSMENT DATE & TIME:Nov@12:12 CHIEF COMPLAINT: Annual physical, increase in stomach pain, depression. HISTORY OF PRESENT ILLNESS: Adams was seen originally as a walk in for an increase in his stomach pain and vomitting. He has chronic stomach pain and Crohns disease. He told the nurse and is tearful that he doesn't care if he dies and doesn't wake up. He signed papers and told his what to do if this happens. I know this well and he has felt like this before. He missed his annual appt scheduled for yesterday so I am seeing him today while he is here. He denies the need or desire for psychiatric hospitalization although he feels like life is not worth living. He states that he doesn't feel like faking his health is okay anymore. He states his stomach pain has worsened over the last month. He also has a history of Morfin's. He did not follow up on his consult last month regarding his scope. He works a lot and is under a lot of stress at work. He states that he is not going to kill himself today and has no plan, he just doesn't care if he wakes up. He makes good eye contact and his is supportive. He refuses to speak to a counselor today. He and I discussed his new medication, Meloxicam, from his pharmacist is an anti-inflammatory and may have aggravated his Morfin's and his stomach significantly and I want him to stop it immediately. It was started just a month ago and would explain a lot. He is agreeable. We will also check some labs. He is fearful he has some type of stomach cancer and wants to follow up on his scope. He states [facility] would be great for him. I discussed with him that I am concerned with his busy lifestyle that he may not go and he states that he will. We discussed the importance of putting his health first and making it a priority. We set this goal and also affirmed positive thought direction for when his anxiety is high. We are increasing his fluoxetine to 60mg. He wants to do his labs today and we are going to have closer follow up on his health. He denies the need for regular counseling. He feels like if it were not for the pain in his stomach for 15 years he would not have depression. was calmer and setting goals and could name several resources including the clinic as a walk in for help (states that is why he came today), the ER, the crisis line, and his . He was making good eye contact and had a plan for his health and follow up when he left. 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: 1) Hyperlipidemia (SCT 81282121) 2) Obesity (SCT 572708750) 3) Low Back Pain (SCT 560986576) 4) PTSD - Post-Traumatic Stress Disorder (SCT 00823152) 5) Depression (SCT 02400807) 6) Insomnia (SCT 393971944) 7) Tinnitus 8) Crohns disease 9) Sleep Apnea (SCT 05519108) 10) Chronic rhinitis 11) Chronic sinusitis 12) Morfin's esophagus with esophagitis 13) Hiatal hernia with gastroesophageal reflux 14) Exposure to potentially hazardous substance Active Outpatient Medications (including Supplies): Active Outpatient Medications Status 1) ALBUTEROL 90MCG (CFC-F) 200D ORAL INHL INHALE 2 PUFFS ORAL ACTIVE INHALATION FOUR TIMES A DAY NEEDED SHAKE WELL. RINSE MOUTHPIECE FREQUENTLY TO PREVENT CLOGGING. Indication: FOR ASTHMA 2) BALSALAZIDE DISODIUM 750MG CAP TAKE ONE CAPSULE BY MOUTH ACTIVE THREE TIMES A DAY Indication: FOR BOWEL INFLAMMATION 3) CHOLECALCIF 50MCG (D3-2,000UNIT) TAB TAKE ONE TABLET BY ACTIVE MOUTH ONCE A DAY Indication: FOR VITAMIN D DEFICIENCY 4) LOPERAMIDE HCL 2MG CAP TAKE ONE CAPSULE BY MOUTH TWICE DAILY ACTIVE NEEDED Indication: FOR DIARRHEA 5) MIRTAZAPINE 30MG TAB TAKE ONE TABLET BY MOUTH AT BEDTIME FOR ACTIVE MOOD 6) PANTOPRAZOLE NA 40MG EC TAB TAKE ONE TABLET BY MOUTH EVERY ACTIVE MORNING BEFORE A MEAL TAKE 30 MINUTES BEFORE MEAL(S) Indication: FOR GASTROESOPHAGEAL REFLUX DISEASE Pending Outpatient Medications Status 1) ACETAMINOPHEN 325MG TAB TAKE TWO TABLETS BY MOUTH FOUR TIMES PENDING A DAY NEEDED CAUTION: DO NOT EXCEED 4000MG PER DAY ACETAMINOPHEN (APAP) FROM ALL MEDS. Indication: FOR PAIN 2) FLUOXETINE HCL 20MG CAP TAKE THREE CAPSULES BY MOUTH EVERY PENDING MORNING FOR MOOD Indication: FOR DEPRESSION 8 Total Medications REVIEW OF SYSTEMS: HEENT: No Headache. No blurry vision, vision loss, eye pain, red eyes, or foreign body. No runnynose, congestion, or nose bleed. No hearing loss,ringing in the ears, or vertigo. No sore throat or dental pain. RESPIRATORY: No cough, SOA, wheezing, or sputum production. CARDIOVASCULAR: No chest pain, palpitations, tachycardia, PND, or orthopnea. GI: No abdominal pain, nausea, constipation, melena, or hematochezia. chronic vomitting and diarrhea. : No dysuria, hematuria, urinary frequency, weak stream, or post-void dribbling. MUSCULOSKELETAL:chronic joint pain. SKIN: No rash, lesions, or infection PSYCH: Depression, anxiety and hopelessnes. Not suicidal. PHYSICAL ASSESSMENT: VITAL SIGNS Pulse: 68 (09/16/2024 15:59) Blood Pressure: 119/89 (09/16/2024 15:59) Respiratory Rate: 18 (09/16/2024 15:59) Temperature: 97.9 F [36.6 C] (09/16/2024 15:59) Weight: 225.5 lb [102.29 kg] (09/16/2024 15:59) Height: 67 in [170.2 cm] (11/18/2023 10:11) Pain: 0 (11/18/2023 10:11) HEENT:PERRL, EOMI, Fundi benign, TM's clear, Pharynx not red and without exudate, tonsils normal size. NECK: Supple, no lymhadenopathy, thyroid normal. CARDIAC: Regular rate and rhythm without murmur. No edema. RESPIRATORY: CTA, BEBS GI: Abdomen soft,with ABS, no HSM, generalized bilateral lower quadrant tenderness. MUSCULOSKELETAL:No muscle or joint tenderness. FROM. SKIN: [place] without rash or lesions. NEUROLOGICAL: The is alert and oriented without distress. Affect tearful, brightened with interaction. Denies SI/HI and A/V hallucinations. IMPRESSION: Encounter for General Adult Medical Exam Crohns Disease-current Barretts Esophagus-current Depression-current Anxiety-current Insomnia-chronic Sleep Apnea-chronic PLAN: Plan of safety developed if SI returns. Increase water intake. Increase fluoxetine to 60mg daily. Stop Meloxicam. Labs today. Chest Xray today. Will refer to [facility]. Follow up in clinic in one month. Follow up for annual physical in one year. Continue healthy diet. Discussed crisis resources. Patient is advised this primary care clinic has open access and he can make a same day appointment anytime a problem/concern arises. Patient further advised he can be seen on a walk-in basis as needed. Patient is provided clinic contact information. Medications reviewed and reconciled. Discussed diet and exercise as relevant to patient conditions. Treatment plan as noted above and the After Visit Summary was reviewed with ; opportunity provided to report concerns and ask question regarding aspects of care or treatment or services; concurrence reached and verbalized understanding. Please refer to addendum or follow up lab letter for plan of care/changes related to lab/test results not available at conclusion of appointment, if any. Discussed with patient that in the event of community imaging / testing being ordered in the future, once the imaging / testing has been completed, please notify PACT of within 1 week by a [facility] member; this is due to intermittent lapses in notification of imaging completion within CPR[facility]. All questions answered; agrees to plan of care. Follow up as listed above, annually, and as needed. Keep all completion at outside facility if not called with results appointments. Medications Reconciled. Time spent 30 minutes. Follow-Up Pos PTSD/Depression - M,P,PH,PS,R,S,T: I have reviewed the results of the Mental Health screens and have evaluated the patient. Based on the evaluation, the following disposition plan will be implemented: Patient to be managed in Primary Care Comment: refused mental health services. medication adjusted Patient declines further intervention or evaluation at this time. Contact information and instructions for accessing emergency services provided. /lyn/ JAMI Greenberg CALLIE Christine Signed: 11/22/2024 18:23 Receipt Acknowledged By: 11/23/2024 08:25 /lyn/ ALDO ENGLE, RN [facility] 11/25/2024 10:18 /es/ FAHAD MANRIQUEZ RN
--- OUTSIDE RECORDS SUMMARY | 2025-01-09 03:58 | XMS_ITS ---
Author Name [facility] [facility] [place] Address [address] [place] [address] Care Team Providers Care Grinding Room Inspector Name Role Phone TIAGO OROZCO Primary Care [...] (PPO) [id number] 2* May 22, [phone] [id number] Ana TORRES PATIENT BLUE CROSS FEP PREFERRED PROVIDER ORGANIZAT ION (PPO) [id number] B May 22, 2013 [id number] Ana TORRES PATIENT BLUE SHIELD FEP PREFERRED PROVIDER ORGANIZAT ION (PPO) [id number] May 22, 2013 112 [id number] [phone] Ana TORRES PATIENT BLUE SHIELD FEP PREFERRED PROVIDER ORGANIZAT ION (PPO) [id number] B May 22, 2013 33B [id number] Ana TORRES PATIENT [place] FEP RX [id number] PRESCRIPT ION [id number] May 22, 2013 [id number] Ana TORRES PATIENT [place] FEP RX [id number] PRESCRIPT ION [id number] May 22, 2013 [id number] Ana TORRES PATIENT Selected Encounter This section includes the information on record at [place] for the Encounter. Date/Time Encounter Type Encounter Description Reason Pro vider Source Jan 09, 2025 08:58 AM Outpatient Encounter PRIMARY CARE/MEDICINE IHE Encounter Template Text not used by [place] Plan of Treatment: Future Appointments (+ 6 months) and Future Tests (+/- 45 days) The Plan of Treatment section includes future care activities for the patient [facility] [place] [facility] This section includes future appointments and future orders which are active, pending or scheduled. Future Appointments This section includes appointments that were scheduled to occur 6 months from the date of the Encounter, up to a maximum of 20 appointments. The data comes from all [facility]. Appointment Date/Time Appointment Type Appointme nt Facility Name Feb 06, 2025 01:30 PM AMBULATORY - MEDICINE [facility] February 28, 2025 09:00 AM AMBULATORY - MEDICINE [facility] February 28, 2025 10:30 AM [facility]ULATORY - MEDICINE [facility] March 02, 2025 10:30 AM [facility]ULATORY - MEDICINE [facility] Mar 29, 2025 02:00 PM AMBULATORY - NONE [facility] MARINELLI [facility] Apr 07, 2025 12:00 PM AMBULATORY - MEDICINE [facility] Active, Pending, and Scheduled Orders This section includes a listing of several types of active, pending, and scheduled orders, including clinic medications orders, diagnostic test orders, procedure orders and consult orders; where the start date of the order is 45 days before the date of the Encounter or 45 days after the date of theEncounter. The data comes from all [facility]. Test Date/Time Test Type Test Details Facility Name Dec 09, 2024 04:14 PM Laboratory - Chemi stry Order POC UA (STL-PB-MA) URINE SP [facility] Lab Results: +/- 30 days of the encounter This section includes the Chemistry and Hematology Lab Results on record with [place] for the patient. Radiology Reports and Pathology Reports are provided separately, in subsequent sections. Lab Results This section contains the Chemistry/Hematology Results that were resulted 30 days before or 30 daysafter the date of the Encounter. Date/Time Source Result Type Result - Unit Interpretation Reference Range Specimen Type Comment Jan 05, 2025 09:34 AM [facility] PROTEIN 24-HOUR URINE PANEL (MA-PB-STL) 24-HOUR URINE Specimen Type: 24-HOUR URINE No comment entered. Ordering Provider: MAURISIO OJEDA Report Released Date/Time: Jan 05, 2025 09:34 AM Reporting Lab: [place] [facility] [address] [facility] [id number] Performing Lab: [place] [facility] [address] [facility] [id number] VOLUME 1000 mL PROTEIN 24-HOUR URINE 130 mg/(24.h) 6.8- 299.9 UNCALCULATED URINE PROTEIN 13.0 mg/dL Jan 05, 2025 09:34 AM [facility] PROTEIN ELECTROPHORESIS URINE 24-HOUR URINE Specimen Type: 24-HOUR URINE Comment: Trace albumin present. Consistent with Normal pattern. Ordering Provider: FAHAD OJEDA Report Released Date/Time: Jan 05, 2025 09:34 AM Reporting Lab: [place] [facility] [address] [facility] [phone] Performing Lab: [place] [facility] [id number] [facility] VOLUME 1000 mL ALPHA-1 GLOBULIN(SO-PB-STL) 0 ALPHA-2 GLOBULIN(SO-PB-STL) 0 BETA 1 GLOBULIN(SO-PB-STL) 0 GAMMA GLOBULIN (SO-PB-STL) 0 TOTAL PROTEIN (SO-PB-STL) 130 <100 CREATININE (sendout) 2.21 H 0.50-2.15 ALBUMIN(ELECTROPHORESIS 100 PROTEIN/CREAT RATIO (PB-STL) 59 mg/g{creat} <100 INTERPRETATION (STL-PB) comment ABNORMAL PROTEIN BAND 1 (SO-PB-STL) No M-Mode d etected. ABNORMAL PROTEIN BAND 2 (SO-PB-STL) canc ABNORMAL PROTEIN BAND 3 canc [place] INTERPRETATION canc Advance Directives: All historical and current Section Date Range: From patient's date of to the date document was created. This section includes ALL of a patient's completed or amended [place] Advance and Rescinded Directives. The entries below indicate that a directive exists for the patient, but an actual copy is not included with this document. The data comes from all [place] facilities. Date Advance Directives Provider Source Jan 09, 2025 ADVANCE DIRECTIVE JONATHAN KRUEGER [facility] Dec 19, 2021 ADVANCE DIRECTIVE JONATHAN KRUEGER [facility] Encounter Notes: All associated encounter notes This section contains the clinical notes associated to the Encounter. Date/Time Encounter Note(s) Provider Source Jan 09, 2025 08:58 AM ADVANCE DIRECTIVE: LOCAL TITLE: ADVANCE DIRECTIVE STANDARD TITLE: ADVANCE DIRECTIVE DATE OF NOTE: JAN 09, 2025@08:58 ENTRY DATE: JAN 09, 2025@08:58:49 AUTHOR: JONATHAN KRUEGER EXP COSIGNER: URGENCY: STATUS: COMPLETED PACT SW received a completed and notarized [place] Advance Directive document. Document sent to scanning to be added to record. /lyn/ MIHAI Tracey,LENDING CONSULTANT Manager Talent Signed: 01/09/2025 08:59 JONATHAN KRUEGER [facility]
--- OUTSIDE RECORDS SUMMARY | 2025-02-06 08:30 | XMS_ITS | Encounter Summary ---
Author Name [facility] [place] [facility] [place] Address [address] [place] [address] Care Team Providers Care Freelance Designer Name Role Phone TIAGO OROZCO Primary Care [...] (PPO) [id number] 2* May 22, 2013 112 [id number] Ana TORRES PATIENT BLUE CROSS FEP PREFERRED PROVIDER ORGANIZAT ION (PPO) [id number] B May 22, 2013 33B [id number] 74 Ana TORRES PATIENT BLUE SHIELD FEP PREFERRED PROVIDER ORGANIZAT ION (PPO) [id number] 2 May 22, 2013 112 [id number] 74 Ana TORRES PATIENT BLUE SHIELD FEP PREFERRED PROVIDER ORGANIZAT ION (PPO) [id number] B May 22, 2013 33B [id number] Ana TORRES PATIENT CAREMARK FEP RX [id number] PRESCRIPT ION [id number] 500 May 22, 2013 [id number] Ana TORRES PATIENT CAREMARK FEP RX [id number] PRESCRIPT ION [id number] 500 May 22, 2013 [id number] [phone] Ana TORRES PATIENT Selected Encounter This section includes the information on record at [place] for the Encounter. Date/Time Encounter Type Encounter Description Reason Provider Source Feb 06, 2025 01:30 PM OFF/OP EST FEBRUARY X REQ PHY/QHP PRIMARY CARE/MEDICINE ICD-10-CM L98.9 Disorder of the skin and subcutaneous tissue, unspecified TOMEKA CORDERO [facility] Encounter Template Text not used by [place] Assessments - Encounter Diagnoses This section includes the primary and secondary diagnoses documented for the Encounter. Date/Time Primary/Secondary Diagnosis Diagnosis Name Provider Source Feb 06, 2025 02:20 PM PRIMARY Disorder of the skin and subcutaneous tissue, unspecified CASANDRA CORDERO [facility] Plan of Treatment: Future Appointments (+ 6 months) and Future Tests (+/- 45 days) The Plan of Treatment section includes future care activities for the patient from all [place] treatmentfacilities. This section includes future appointments and future orders which are active, pending or scheduled. Future Appointments This section includes appointments that were scheduled to occur 6 months from the date of the Encounter, up to a maximum of 20 appointments. The data comes from all [place] treatment facilities. Appointment Date/Time Appointment Type Appointme nt Facility Name February 28, 2025 09:00 AM AMBULATORY - MEDICINE [facility] February 28, 2025 10:30 AM AMBULATORY - MEDICINE [facility] March 02, 2025 10:30 AM AMBULATORY - MEDICINE [facility] Mar 29, 2025 02:00 PM AMBULATORY - NONE LIBBY MARINELLI [facility] Apr 07, 2025 12:00 PM AMBULATORY - MEDICINE [facility] Social History: Smoking Status (Most current) and Tobacco Use (All prior to encounter date) This section includes the most current, and the historical, smoking and tobacco- related health factors from the [place] facility where the Encounter took place. Current Smoking Status This section includes the most current smoking, or tobacco-related health factor, from the [place] facility where the Encounter took place. Date/Time Current Smoking Status Comment Antonio ity Nov 18, 2023 10:00 AM VA-TOBACCO FORMER USER [facility] Tobacco Use History This section includes a history of the smoking, or tobacco-related health factors, that were collected on or before the date of the Encounter. The data comes from the [place] facility where the Encounter took place. Date/Time Smoking Status/Tobacco Use Comment F acility Nov 18, 2023 10:00 AM VA-TOBACCO QUIT 5 TO < 15 YRS [facility] [place] [facility] Sep 01, 2022 10:30 AM VA-TOBACCO NEVER USED [facility] [place] [facility] Sep 30, 2021 10:30 AM VA-TOBACCO FORMER USER [facility] Sep 30, 2021 10:30 AM VA-TOBACCO QUIT 5 TO < 15 YRS [facility] Dec 05, 2019 11:23 AM VA-TOBACCO FORMER USER [facility] Dec 05, 2019 11:23 AM VA-TOBACCO QUIT 5 TO < 15 YRS [facility] [place] [facility] Advance Directives: All historical and current Section Date Range: From patient's date of to the date document was created. This section includes ALL of a patient's completed or amended [place] Advance and Rescinded Directives. The entries below indicate that a directive exists for the patient, but an actual copy is not included with this document. The data comes from all [facility]. Date Advance Directives Provider Source Jan 09, 2025 ADVANCE DIRECTIVE JONATHAN KRUEGERU [facility] Dec 19, 2021 ADVANCE DIRECTIVE JONATHAN KRUEGERU [facility] Encounter Notes: All associated encounter notes This section contains the clinical notes associated to the Encounter. Date/Time Encounter Note(s) Provider Source Feb 06, 2025 01:45 PM NURSING PROGRESS N OTE: LOCAL TITLE: NURSING NOTE PB STANDARD TITLE: NURSING PROGRESS NOTE DATE OF NOTE: FEB 06, 2025@13:45 ENTRY DATE: FEB 06, 2025@13:45:49 AUTHOR: GIL,THAD RE EXP COSIGNER: URGENCY: STATUS: COMPLETED This is a 39 year old MALE with known Allergies as noted: PENICILLIN, ANTHRAX VACCINE C/C: rash in armpits S: stated that he noticed over the past couple days that he has developed a rash under his arms. [place] stated that the rash does not itch but it does burn. stated that he did use his 's shampoo to wash his armpits. That is the only change. On the following Active Medications: Active Outpatient Medications (including Supplies): Active Outpatient Medications Status 1) ACETAMINOPHEN 325MG TAB TAKE TWO TABLETS BY MOUTH FOUR TIMES ACTIVE A DAY NEEDED CAUTION: DO NOT EXCEED 4000MG PER DAY ACETAMINOPHEN (APAP) FROM ALL MEDS. Indication: FOR PAIN 2) BALSALAZIDE DISODIUM 750MG CAP TAKE ONE CAPSULE BY MOUTH ACTIVE THREE TIMES A DAY Indication: FOR BOWEL INFLAMMATION 3) CHOLECALCIF 50MCG (D3-2,000UNIT) TAB TAKE ONE TABLET BY ACTIVE MOUTH ONCE A DAY Indication: FOR VITAMIN D DEFICIENCY 4) FLUOXETINE HCL 20MG CAP TAKE THREE CAPSULES BY MOUTH EVERY ACTIVE MORNING Indication: FOR DEPRESSION 5) LOPERAMIDE HCL 2MG CAP TAKE ONE CAPSULE BY MOUTH TWICE DAILY ACTIVE NEEDED Indication: FOR DIARRHEA 6) ONDANSETRON 4MG ORAL DISINTEGRATING TAB TAKE ONE TABLET ACTIVE UNDER THE TONGUE EVERY EIGHT(8) HOURS NEEDED FOR NAUSEA AND VOMITING 7) PANTOPRAZOLE NA 40MG EC TAB TAKE ONE TABLET BY MOUTH TWICE A ACTIVE DAY TAKE 30 MINUTES BEFORE MEAL(S) O: ambulated into the clinic without assistance. Steady gait. Alert and oriented x4. Unlabored breathing. Red raised rash under bilateral arms. A/P: Reviewed with Provider. Provider gave [place] a handwritten script for Diflucan and a Medrol dose pact [place] advised to if not better after completing medications to report back to the clinic for further evaluation. [place] voiced understanding. escorted to the [facility] in stable condition. RTC: as needed /es/ Thad Cordero RN Corry CALLIE, DENICE [facility] Signed: 02/06/2025 14:19 Receipt Acknowledged By: 02/06/2025 17:39 /es/ TERRI Greenberg-STELLA CorryCALLIE JEANNIE RENEE [facility]
--- OUTSIDE RECORDS SUMMARY | 2025-02-28 04:00 | XMS_ITS | Encounter Summary ---
Author Name [facility] [place] [place] [facility] [place] Address [address] [place] [address] Care Team Providers Care Tombstone Setter Name Role Phone TIAGO OROZCO Primary Care [...] (PPO) [id number] 2* May 22, 2013 112 [id number] Ana TORRES PATIENT BLUE CROSS FEP PREFERRED PROVIDER ORGANIZAT ION (PPO) [id number] B May 22, 2013 33B [id number] Ana TORRES PATIENT BLUE SHIELD FEP PREFERRED PROVIDER ORGANIZAT ION (PPO) [id number] 2 May 22, 2013 112 [id number] 74 Ana TORRES PATIENT BLUE SHIELD FEP PREFERRED PROVIDER ORGANIZAT ION (PPO) [id number] B May 22, 2013 33B [id number] Ana TORRES PATIENT CAREMARK FEP RX [id number] PRESCRIPT ION [id number] 500 May 22, 2013 [id number] Ana TORRES PATIENT CAREMARK FEP RX [id number] PRESCRIPT ION [id number] 500 May 22, 2013 [id number] [phone] Ana TORRES PATIENT Selected Encounter This section includes the information on record at [place] for the Encounter. Date/Time Encounter Type Encounter Description Reason Provider Source February 28, 2025 09:00 AM OFF/OP EST FEBRUARY X REQ PHY/QHP PRIMARY CARE/MEDICINE ICD-10-CM Z71.89 Other specified counseling MARIANNA FAULKNER [facility] Encounter Template Text not used by [place] Assessments - Encounter Diagnoses This section includes the primary and secondary diagnoses documented for the Encounter. Date/Time Primary/Secondary Diagnosis Diagnosis Name Provider Source February 28, 2025 10:52 AM PRIMARY Other specified counseling MARIANNA FAULKNER [facility] Plan of Treatment: Future Appointments (+ 6 months) and Future Tests (+/- 45 days) The Plan of Treatment section includes future care activities for the patient from all [place] treatmentfacilities. This section includes future appointments and future orders which are active, pending or scheduled. Future Appointments This section includes appointments that were scheduled to occur 6 months from the date of the Encounter, up to a maximum of 20 appointments. The data comes from all [place] treatment facilities. Appointment Date/Time Appointment Type Appointme nt Facility Name March 02, 2025 10:30 AM AMBULATORY - MEDICINE [facility] Mar 29, 2025 02:00 PM AMBULATORY - NONE LIBBY MARINELLI [facility] Apr 07, 2025 12:00 PM AMBULATORY - MEDICINE [facility] Vital Signs: All taken on the encounter date This section contains inpatient and outpatient Vital Signs collected on the date of the Encounter. Date/Time Temperature Pulse Blood Pressure Respiratory Rate SP02 Pain Height Weight Body Mass Index Source February 28, 2025 10:03 AM 97.8 68 123/87 [facility] Social History: Smoking Status (Most current) and Tobacco Use (All prior to encounter date) This section includes the most current, and the historical, smoking and tobacco- related health factors from the [place] facility where the Encounter took place. Current Smoking Status This section includes the most current smoking, or tobacco-related health factor, from the [place] facility where the Encounter took place. Date/Time Current Smoking Status Comment Antonio ity Nov 18, 2023 10:00 AM VA-TOBACCO FORMER USER [facility] Tobacco Use History This section includes a history of the smoking, or tobacco-related health factors, that were collected on or before the date of the Encounter. The data comes from the [place] facility where the Encounter took place. Date/Time Smoking Status/Tobacco Use Comment F acility Nov 18, 2023 10:00 AM VA-TOBACCO QUIT 5 TO < 15 YRS [facility] Sep 01, 2022 10:30 AM [facility] Sep 30, 2021 10:30 AM VA-TOBACCO FORMER USER [facility] Sep 30, 2021 10:30 AM VA-TOBACCO QUIT 5 TO < 15 YRS [facility] Dec 05, 2019 11:23 AM VA-TOBACCO FORMER USER [facility] Dec 05, 2019 11:23 AM VA-TOBACCO QUIT 5 TO < 15 YRS [facility] Advance Directives: All historical and current Section Date Range: From patient's date of to the date document was created. This section includes ALL of a patient's completed or amended CT Advance and Rescinded Directives. The entries below indicate that a directive exists for the patient, but an actual copy is not included with this document. The data comes from all [facility]. Date Advance Directives Provider Source Jan 09, 2025 ADVANCE DIRECTIVE JONATHAN KRUEGER [facility] Dec 19, 2021 ADVANCE DIRECTIVE JONATHAN KRUEGER [facility] Encounter Notes: All associated encounter notes This section contains the clinical notes associated to the Encounter. Date/Time Encounter Note(s) Provider Source February 28, 2025 10:03 AM NURSING PROGRESS N OTE: LOCAL TITLE: NURSING NOTE PB STANDARD TITLE: NURSING PROGRESS NOTE DATE OF NOTE: FEBRUARY 28, 2025@10:03 ENTRY DATE: FEBRUARY 28, 2025@10:03:33 AUTHOR: MARIANNA FAULKNER EXP COSIGNER: URGENCY: STATUS: COMPLETED NURSING NOTE PB Has ADDENDA Blood Pressure: 123/87 Pulse: 68 Temperature: 97.8 F (36.6 C) Pulse Oximetry: 100% Active Outpatient Medications: Active Outpatient Medications (including Supplies): Active [...] ACTIVE DAY TAKE 30 MINUTES BEFORE MEAL(S) [place] presented to clinic stating he ius having some issues but does not wanty to discuss with this nurse. Requesting to speak with Fahad Ojeda APRN. Will discuss with CATALINA. /lyn/ MARIANNA CARLSON RN [facility] Signed: 02/28/2025 10:05 02/28/2025 ADDENDUM STATUS: COMPLETED seen by CATALINA /leanne [facility] Signed: 02/28/2025 10:53 MARIANNA FAULKNER [facility]
--- OUTSIDE RECORDS SUMMARY | 2025-05-01 04:00 | XMS_ITS | Encounter Summary ---
Author Name [facility] [place] Address [address] [place] [address] Care Team Providers Care Safety Intern Name Role Phone TIAGO OROZCO Primary Care [...] (PPO) [id number] 2* May 22, 2013 112 [id number] Ana TORRES PATIENT BLUE CROSS FEP PREFERRED PROVIDER ORGANIZAT ION (PPO) [id number] B May 22, 2013 33B [id number] 74 Ana TORRES PATIENT BLUE SHIELD FEP PREFERRED PROVIDER ORGANIZAT ION (PPO) [id number] 2 May 22, 2013 112 [id number] 74 Ana TORRES PATIENT BLUE SHIELD FEP PREFERRED PROVIDER ORGANIZAT ION (PPO) [id number] B May 22, 2013 33B [id number] Ana TORRES PATIENT CAREMARK FEP RX [id number] PRESCRIPT ION [id number] May 22, 2013 [id number] Ana TORRES PATIENT CAREMARK FEP RX [id number] PRESCRIPT ION [id number] May 22, 2013 [id number] Ana TORRES PATIENT Selected Encounter This section includes the information on record at [place] for the Encounter. Date/Time Encounter Type Encounter Description Reason Provider Source May 01, 2025 09:00 AM Outpatient Encounter ADMIN PAT ACTIVTIES (MASNONCT) JANETT FLOOD Encounter Template Text not used by [place] Advance Directives: All historical and current Section Date Range: From patient's date of to the date document was created. This section includes ALL of a patient's completed or amended [place] Advance and Rescinded Directives. The entries below indicate that a directive exists for the patient, but an actual copy is not included with this document. The data comes from all [place] facilities. Date Advance Directives Provider Source Jan 09, 2025 ADVANCE DIRECTIVE JONATHAN KRUEGER [facility] Dec 19, 2021 ADVANCE DIRECTIVE JONATHAN KRUEGER [facility] Encounter Notes: All associated encounter notes This section contains the clinical notes associated to the Encounter. Date/Time Encounter Note(s) Provider Source May 03, 2025 11:16 AM PUBLIC HEALTH NOTE : LOCAL TITLE: DISRUPTIVE BEHAVIOR NOTE STANDARD TITLE: PUBLIC HEALTH NOTE DATE OF NOTE: MAY 03, 2025@11:16:23 ENTRY DATE: MAY 03, 2025@11:16:23 AUTHOR: JANETT FLOOD EXP COSIGNER: URGENCY: STATUS: COMPLETED An event was reported to the Disruptive Behavior Reporting System (DBRS). For information contact your Disruptive Behavior Committee and provide DBRS reference number [id number] ([id number]* (03/29/25) NOTE: * after event reference number means VRAI is present). /lyn/ Janett Flood Psy.D. Psychologist Signed: 05/03/2025 11:[address] [facility]
--- OUTSIDE RECORDS SUMMARY | 2025-05-02 06:19 | XMS_ITS | Encounter Summary ---
Author Name [facility] [place] [facility] [place] Address [address] [place] [address] Care Team Providers Care Handbell Choir Director Name Role Phone TIAGO OROZCO Primary Care [...] (PPO) [id number] 2* May 22, 2013 112 [id number] Ana TORRES PATIENT BLUE CROSS FEP PREFERRED PROVIDER ORGANIZAT ION (PPO) [id number] B May 22, 2013 33B [id number] 74 Ana TORRES PATIENT BLUE SHIELD FEP PREFERRED PROVIDER ORGANIZAT ION (PPO) [id number] 2 May 22, 2013 112 [id number] [phone] Ana TORRES PATIENT BLUE SHIELD FEP PREFERRED PROVIDER ORGANIZAT ION (PPO) [id number] B May 22, 2013 33B [id number] [phone] Ana TORRES PATIENT CAREMARK FEP RX [id number] PRESCRIPT ION [id number] May 22, 2013 [id number] Ana TORRES PATIENT CAREMARK FEP RX [id number] PRESCRIPT ION [id number] 500 May 22, 2013 [id number] Ana TORRES PATIENT Selected Encounter This section includes the information on record at [place] for the Encounter. Date/Time Encounter Type Encounter Description Reason Pro vider Source May 02, 2025 11:19 AM Outpatient Encounter ADMIN PAT ACTIVTIES (MASNONCT) IHE Encounter Template Text not used by [place] Advance Directives: All historical and current Section Date Range: From patient's date of to the date document was created. This section includes ALL of a patient's completed or amended [place] Advance and Rescinded Directives. The entries below indicate that a directive exists for the patient, but an actual copy is not included with this document. The data comes from all [place] facilities. Date Advance Directives Provider Source Jan 09, 2025 ADVANCE DIRECTIVE JONATHAN KRUEGER [facility] Dec 19, 2021 ADVANCE DIRECTIVE JONATHAN KRUEGER [facility] Encounter Notes: All associated encounter notes This section contains the clinical notes associated to the Encounter. Date/Time Encounter Note(s) Provider Source May 02, 2025 11:19 AM HOMELESS PROGRAM T ELEPHONE ENCOUNTER NOTE: LOCAL TITLE: HOMELESS PHONE NOTE STANDARD TITLE: HOMELESS PROGRAM TELEPHONE ENCOUNTER NOTE DATE OF NOTE: MAY 02, 2025@11:19 ENTRY DATE: MAY 02, 2025@11:19:46 AUTHOR: MINERVA BHAKTA COSIGNER: URGENCY: STATUS: COMPLETED Provider attempted to contact [place] via phone communication. Unable to reach or leave voicemail as mailbox was full. /lyn/ CHRIS Gregorio [facility] Signed: 05/02/2025 11:20 Receipt Acknowledged By: 05/02/2025 14:45 /lyn/ Janett Flood Psy.D. Psychologist MINERVA BHAKTA [facility]
--- OUTSIDE RECORDS SUMMARY | 2025-05-02 11:26 | XMS_ITS ---
Author Name [facility] [place] [facility] [place] Address [address] [place] [address] Care Team Providers Care Spinning Frame Changer Name Role Phone TIAGO OROZCO Primary Care [...] (PPO) [id number] B May 22, 2013 33B [id number] Ana TORRES PATIENT BLUE CROSS FEP PREFERRED PROVIDER ORGANIZAT ION (PPO) [id number] 2* May 22, 2013 [id number] Ana TORRES PATIENT BLUE SHIELD FEP PREFERRED PROVIDER ORGANIZAT ION (PPO) [id number] B May 22, 2013 33B [id number] Ana TORRES PATIENT BLUE SHIELD FEP PREFERRED PROVIDER ORGANIZAT ION (PPO) [id number] 2 May 22, 2013 112 [id number] 74 Ana TORRES PATIENT CAREMARK FEP RX [id number] PRESCRIPT ION [id number] 500 May 22, 2013 [id number] Ana TORRES PATIENT CAREMARK FEP RX [id number] PRESCRIPT ION [id number] 500 May 22, 2013 [id number] 74 Ana TORRES PATIENT Selected Encounter This section includes the information on record at [place] for the Encounter. Date/Time Encounter Type Encounter Description Reason Pro vider Source May 02, 2025 04:26 PM Outpatient Encounter ADMIN PAT ACTIVTIES (MASNONCT) IHE Encounter Template Text not used by [place] Advance Directives: All historical and current Section Date Range: From patient's date of to the date document was created. This section includes ALL of a patient's completed or amended [place] Advance and Rescinded Directives. The entries below indicate that a directive exists for the patient, but an actual copy is not included with this document. The data comes from all [place] facilities. Date Advance Directives Provider Source Jan 09, 2025 ADVANCE DIRECTIVE JONATHAN KRUEGER [facility] Dec 19, 2021 ADVANCE DIRECTIVE JONATHAN KRUEGER [facility] Encounter Notes: All associated encounter notes This section contains the clinical notes associated to the Encounter. Date/Time Encounter Note(s) Provider Source May 02, 2025 04:26 PM PATIENT RECORD FLA G: LOCAL TITLE: PATIENT RECORD FLAG CATEGORY I STANDARD TITLE: PATIENT RECORD FLAG DATE OF NOTE: MAY 02, 2025@16:26 ENTRY DATE: MAY 02, 2025@16:26:55 AUTHOR: JANETT FLOOD COSIGNER: URGENCY: STATUS: COMPLETED PATIENT RECORD FLAG CATEGORY I Has ADDENDA PATIENT RECORD FLAG CATEGORY I ORDER OF BEHAVIORAL RESTRICTION The [facility]'S Disruptive Behavior Committee (DBC), a multidisciplinary committee of senior clinical and administrative staff who operate under the auspices of the harvest worker field crop, has authorized the entry of a Patient Record Flag in this patient's medical record. Reviews of Patient Record Flags are conducted by reviewing available medical records, incident reports, interviews with current health care providers, and other relevant information. This patient's Patient Record Flag was reviewed by the [facility] on 05/02/25. Based upon the review of incidents involving this patient, medical records, and other available documentation, the [facility] has concluded that the represents a significant risk for future disruptive behavior. Further, by making possible the delivery of safe and appropriate health care despite the patient's behavior, the [facility] has concluded that the entry of a Patient Record Flag assignment will contribute to the quality of this patient's care and to the safety of other patients and employees. is having difficulty coping with major life stressors and mood disturbances that have led to exhibiting verbal and physical aggression. [place]'s appointments or any visit to a [facility] are restricted to times coordinated by clinic with when [place] police services can be on site. [place] should be asked to leave if he presents outside this time frame. Use PMDB skills and local police as needed if this occurs. The [facility] routinely reviews all Patient Record Flags on a periodic basis. This flag will be reviewed in approximately two years. Patient Record Flag assignments are entered using the [employer] software. Questions about the flag advisory may be directed the harvest worker field crop or a Disruptive Behavior Committee Chair. All flags are advisory only. No patient should be denied care for life threatening emergencies on the basis of a flag advisory. /lyn/ Janett Flood Psy.D. Psychologist Signed: 05/02/2025 16:29 05/02/2025 ADDENDUM STATUS: COMPLETED VANESSA CHOUDHURYNELL [address] [place] [address] May 02, 2025 Dear Mr. Torres, To provide the most effective health care, Veterans and VA staff alike must interact in an environment of respect and collaboration. We are seeking to ensure safety and reduce the risk of any disruptive behavior that could occur by having the staff working with you do so by phone or VVC. If necessary to be seen in person, that visit will need to be coordinated at a time our VA Auto Machinist is able to be at the clinic. The VA takes very seriously any potential disruptive behavior and threats of harm to this facility or its staff/patients, regardless of the circumstances. Pursuant to Federal Regulation, 38 CFR, part 17.106, [place] may restrict the time, place and manner of medical care to Veterans who are disruptive or pose a risk of disruptive behavior. Your medical record has been flagged to designate you as a disruptive behavior risk. The behavioral flag includes an order of behavioral restriction that will require your checking in with [place] Police when receiving care at the [facility]. Your care is restricted by location and manner. The following changes to your care are hereby in effect immediately. 1. Your care at the [place] is now restricted to receiving services that are coordinated with having in person appointments when [place] Police on site, by phone, or by [facility]. This includes seeing the VSO or any other need that brings you to the [facility]. 2. Your care outside of potentially life-threatening emergencies must be scheduled appointments. Life threatening emergencies should be addressed by going to the ER, which can be identified by calling [phone]. 3. If you do become disruptive, VA police or local police will be contacted and immediately escort you from the Medical Center grounds and you will not be permitted to return that day except for evaluation of potentially life-threatening emergencies. You may return at the time of your next appointment. However, continued disruptive or threatening behavior may result in additional restrictions. These restrictions will remain in effect until you are notified otherwise and will be re-evaluated a minimum of every two years to determine whether changes are appropriate. If you feel that you have not received respectful care from our staff, you may file a statement with our Patient Advocate's office. These restrictions do not reduce your eligibility for VA health care. You remain eligible to access any VA health care scheduled visits (or unscheduled if medically appropriate). If you wish to appeal these restrictions, you have 30 days to do so. You may appeal by doing the followin. Sending a letter to the following address stating your disagreement with the restrictions and the reasons for your disagreement. OBR Review Request COS c/o Patient Advocate JOLLY Fernandez [id number] 2. Your letter will be forwarded to the Director of Veterans Integrated Services Network (VISN) 15 for an independent review of your restrictions. 3. The VISN Director will have 30 days from receipt of your letter in which to review the reasons for the restrictions, the restrictions themselves, and your disagreement with them. Once the decision has been made by the Pit Tanner you will be notified. 4. No additional appeals for these restrictions will be accepted. 5. These restrictions will remain in effect during any appeal. For life-threatening emergencies, go to the closest emergency department, which may or may not be eligible for VA payment. If you are suicidal, call the Veterans Crisis Line at 7-890-828-QSCA (1395) at any hour or day. We look forward to providing you with the health care services to which you are entitled as a [place]. We look forward to providing you with care in a mutually respectful manner that is safe for everyone. Sincerely, Teodoro Choudhury [facility] Disruptive Behavior Committee /lyn/ Janett Flood Psy.D. Psychologist Signed: 05/02/2025 16:31 JANETT FLOOD [facility]
--- OUTSIDE RECORDS SUMMARY | 2025-05-02 12:37 | XMS_ITS | Encounter Summary ---
Author Name [facility] [place] [facility] [place] Address [address] [place] [address] Care Team Providers Care Concrete Pavement Installer Name Role Phone TIAGO OROZCO Primary Care [...] (PPO) [id number] 2* May 22, 2013 112 [id number] Ana TORRES PATIENT BLUE CROSS FEP PREFERRED PROVIDER ORGANIZAT ION (PPO) [id number] B May 22, 2013 33B [id number] 74 Ana TORRES PATIENT BLUE SHIELD FEP PREFERRED PROVIDER ORGANIZAT ION (PPO) [id number] 2 May 22, 2013 112 [id number] 74 Ana TORRES PATIENT BLUE SHIELD FEP PREFERRED PROVIDER ORGANIZAT ION (PPO) [id number] B May 22, 2013 33B [id number] 74 Ana TORRES PATIENT CAREMARK FEP RX [id number] PRESCRIPT ION [id number] May 22, 2013 [id number] Ana TORRES PATIENT CAREMARK FEP RX [id number] PRESCRIPT ION [id number] May 22, 2013 [id number] Ana TORRES PATIENT Selected Encounter This section includes the information on record at [place] for the Encounter. Date/Time Encounter Type Encounter Description Reason Provider Source May 02, 2025 05:37 PM Outpatient Encounter [facility]ENT[facility] CLINIC - IND JANETT FLOOD Encounter Template Text not used by [place] Advance Directives: All historical and current Section Date Range: From patient's date of to the date document was created. This section includes ALL of a patient's completed or amended [place] Advance and Rescinded Directives. The entries below indicate that a directive exists for the patient, but an actual copy is not included with this document. The data comes from all [place] facilities. Date Advance Directives Provider Source Jan 09, 2025 ADVANCE DIRECTIVE JONATHAN KRUEGER [facility] Dec 19, 2021 ADVANCE DIRECTIVE JONATHAN KRUEGER [facility] Encounter Notes: All associated encounter notes This section contains the clinical notes associated to the Encounter. Date/Time Encounter Note(s) Provider Source May 02, 2025 05:37 PM MENTAL HEALTH SECU RE MESSAGING: LOCAL TITLE: MENTAL HEALTH STANDARD TITLE: MENTAL HEALTH SECURE MESSAGING DATE OF NOTE: MAY 02, 2025@17:37 ENTRY DATE: MAY 02, 2025@16:37:01 AUTHOR: JANETT FLOOD EXP COSIGNER: URGENCY: STATUS: COMPLETED ------Original Message --- Sent: 05/02/2025 05:36 PM ET From: JANETT FLOOD To: VANESSA TORRES Subject: Appointment:Please reach out regarding appointments and care Heljose juan, I am reaching out regarding disruptive behavior that occurred and the decision based upon the risk assessment conducted by the Disruptive Behavior Committee. We want to support you in continuing your care with your current providers at the [facility] and will need to speak with you regarding how we can do this. See letter below and a certified copy that will be coming to you in the mail. Please call me at [phone]. Sincerely, Dr. Janett Flood Psychologist/Workplace Violence Mobile Web Application Developer VANESSA TORRES [address] [place] [address] May 02, 2025 Dear Mr. Torres, To [...] be coordinated at a time our VA Order Entry Clerk is able to be at the clinic. The VA takes very seriously any potential disruptive behavior and threats of harm to this facility or its staff/patients, regardless of the circumstances. Pursuant to Federal Regulation, 38 CFR, part 17.106, [place] may restrict the time, place and manner of medical care to Veterans who are disruptive or pose a risk of disruptive behavior. Your medical record has been flagged to designate you as a disruptive behavior risk. The behavioral flag includes an order of behavioral restriction that will require your checking in with [place] Police when receiving care at the [facility]. Your care is restricted by location and manner. The following changes to your care are hereby in effect immediately. 1. Your care at the [place] is now restricted to receiving services that are coordinated with having in person appointments when [place] Police on site, by phone, or by VVC. This includes seeing the VSO or any other need that brings you to the CB. 2. Your care outside of potentially life-threatening emergencies must be scheduled appointments. Life threatening emergencies should be addressed by going to the ER, which can be identified by calling [phone]. 3. If you do become disruptive, VA [...] OBR Review Request COS c/[place] [address] 2. Your letter will be forwarded to the Director of [facility] Integrated Services Network (VISN) 15 for an independent review of your restrictions. 3. The [facility] Director will have 30 days from receipt of your letter in which to review the reasons for the restrictions, the restrictions themselves, and your disagreement with them. Once the decision has been made by the Wood Lather you will be notified. 4. No additional appeals for these restrictions will be accepted. 5. These restrictions will remain in effect during any appeal. For life-threatening emergencies, go to the closest emergency department, which may or may not be eligible for VA payment. If you are suicidal, call the Veterans Crisis Line at 5-355-953-JJTX ([phone]) at any hour or day. We look forward to providing you with the health care services to which you are entitled as a . We look forward to providing you with care in a mutually respectful manner that is safe for everyone. Sincerely, Teodoro Santoyohing [facility] Disruptive Behavior Committee VANESSA TORRES [address] [place] [address] May 02, 2025 Dear Mr. Torres, To [...] be coordinated at a time our VA Order Entry Clerk is able to be at the clinic. The VA takes very seriously any potential disruptive behavior and threats of harm to this facility or its staff/patients, regardless of the circumstances. Pursuant to Federal Regulation, 38 CFR, part 17.106, [place] may restrict the time, place and manner of medical care to Veterans who are disruptive or pose a risk of disruptive behavior. Your medical record has been flagged to designate you as a disruptive behavior risk. The behavioral flag includes an order of behavioral restriction that will require your checking in with [place] Police when receiving care at the [facility]. Your care is restricted by location and manner. The following changes to your care are hereby in effect immediately. 1. Your care at the [place] is now restricted to receiving services that are coordinated with having in person appointments when [place] Police on site, by phone, or by [facility]. This includes seeing the VSO or any other need that brings you to the [facility]. 2. Your care outside of potentially life-threatening emergencies must be scheduled appointments. Life threatening emergencies should be addressed by going to the ER, which can be identified by calling [phone]. 3. If you do become disruptive, VA [...] Request COS c/o Patient Advocate JOLLY Fernandez [id number] 2. Your letter will be forwarded to the Director of Veterans Integrated Services Network (VISN) 15 for an independent review of your restrictions. 3. The VISN Director will have 30 days from receipt of your letter in which to review the reasons for the restrictions, the restrictions themselves, and your disagreement with them. Once the decision has been made by the Wood Lather you will be notified. 4. No additional appeals for these restrictions will be accepted. 5. These restrictions will remain in effect during any appeal. For life-threatening emergencies, go to the closest emergency department, which may or may not be eligible for VA payment. If you are suicidal, call the Veterans Crisis Line at 7-563-623-IZSS ([phone]) at any hour or day. We look forward to providing you with the health care services to which you are entitled as a . We look forward to providing you with care in a mutually respectful manner that is safe for everyone. Sincerely, Teodoro Choudhury [facility] Disruptive Behavior Committee /lyn/ Janett Flood Psy.D. Psychologist Signed: 05/02/2025 16:37 JANETT FLOOD [facility]
--- NOTE | 2025-05-03 15:46 | ECG_ITS ---
[facility]: 2025-05-03 Pat Name: Marcello Rubio Department: Room: Gender: Male [address] Magistrate: : 1985 Requested By: Heaven Lemon Order Number: [id number] Cardozo MD: Marck Ramos M.D. Measurements Intervals [place] Rate: 78 P: 31 MS: 152 QRS: 50 QRSD: 84 T: 36 QT: 331 QTc: 379 Interpretive Statements SINUS RHYTHM No previous ECG available for comparison Electronically Signed On 05-04-2025 09:02:25 CDT by Marck Ramos M.D. [email or web address]
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
--- OUTSIDE RECORDS SUMMARY | 2025-05-03 15:51 | XMS_ITS | Continuity of Care Document ---
Author Name [facility] Organization [facility] Care Team Providers Care Vet Assistant Name Role Phone [facility] Unavailable Unavailable Problems Combined list of problems from Department of Defense and Veterans Affairs facilities. It does not include entries that were removed or entered in error. Problem Status Onset Date Problem Type Date of Resolution Comments Source visit for: ears / hearing exam Active Condition DoD visit for: services physical Active Condition DoD OPEN WOUND OF THE HAND LEFT Inactive Condition DoD visit for: laboratory Inactive Condition DoD Patient Education - Medication Adverse Reactions Active Condition DoD visit for: administrative purpose Inactive Condition Do D CONDITIONS INFLUENCING HEALTH STATUS Active Condition DoD chest pain or discomfort Inactive Condition DoD Vaccines Prophylactic Need Against Influenza Inactive Condition Do D SUPERFICIAL INJURY - ABRASION OF THIGH Inactive Condition DoD Testes Swelling Tender Inactive Condition DoD DERMATOPHYTOSIS TINEA CRURIS GROIN Inactive Condition DoD smoking cigarettes Active Condition DoD EPIDIDYMITIS BILATERAL Inactive Condition DoD Need For Vaccination Hepatitis A Active Condition DoD ABRASION OR FRICTION BURN Inactive Condition DoD DERMATOPHYTOSIS TINEA PEDIS Active Condition DoD COMMON COLD Active Condition DoD HEAT RASH Active Condition DoD Need For Vaccination Chickenpox (Active) Active Condition DoD Need For Vaccination MMR Active Condition [facility] Need For Vaccination Hepatitis B Active Condition [facility] visit for: screening exam Active Condition [facility] Vaccines Prophylactic Need Against Bacterial Diseases Active Condition DoD Need For Vaccination Poliomyelitis Active Condition [facility] visit for: screening exam pulmonary tuberculosis Active Condition [facility] Vaccines Prophylactic Need Against DTP Active Condition DoD ASTIGMATISM Active Condition DoD REFRACTIVE ERROR - MYOPIA Active Condition DoD Anxiety disorder Active Condition [facility] Anxiety Disorder * (DSM-IV 300.00/ICD-9-CM 300.00) Active Condition [facility] Morfin's esophagus with esophagitis Active Condition Jul 23, 2023 Entered By: EVERARDO OJEDA Comment: found on egd 07/2023 [facility] Cervicalgia Active Condition [facility] diarrhea Active Condition [facility] Chronic Low Back Pain (ICD-9-CM 724.2) Active Condition [facility] Chronic post-traumatic stress disorder Active Condition [facility] Chronic rhinitis Active Condition [facility] Chronic sinusitis Active Condition [facility] Concussion with no loss of consciousness Active Condition [facility] Crohn's disease Active Condition [facility] Crohns disease Active Condition [facility] Depression Active Condition [facility] Depression (SCT 19344945) Active Condition [facility] Exposure to potentially hazardous substance Active Condition [facility] Headache Active Condition [facility] Headaches * (ICD-9-CM 784.0) Active Condition [facility] Hiatal hernia with gastroesophageal reflux Active Condition [facility] Hypercholesterolemia * (ICD-9-CM 272.0) Active Condition [facility] Hyperlipidemia (SCT 09627323) Active Condition [facility] Hypertriglyceridemia * (ICD-9-CM 272.1) Active Condition [facility] Impacted third molar tooth Active Condition [facility] Insomnia (SCT 676800160) Active Condition [facility] Insomnia, unspecified Active Condition [facility] Knee: arthralgia * (ICD-9-CM 719.46) Active Condition [facility] Low back pain Active Condition [facility] Low Back Pain (SCT 373484250) Active Condition [facility] Lumbago Active Condition [facility] Male erectile disorder Active Condition [facility] Memory loss Active Condition [facility] Migraine Active Condition [facility] Multiple myeloma Active Condition [facility] Noncompliance with Treatment (ICD-9-CM V15.81) Active Condition [facility] Obesity Active Condition [facility] Obesity (SCT 532648418) Active Condition [facility] Obesity * (ICD-9-CM 278.00) Active Condition [facility] Pain in joint involving lower leg Active Condition [facility] Psoriasis Active Condition [facility] PTSD - Post-Traumatic Stress Disorder (SCT 41684946) Active Condition [facility] Sleep apnea Active Condition [facility] Sleep Apnea (SCT 60394518) Active Condition [facility] Suicidal thoughts Active Condition [facility] Tinnitus Active Condition [facility] Tobacco user Active Condition [facility] Diagnosis: ICD-10-CM F32.9 Major depressive disorder, single episode, unspecified Active Diagnosis [facility] Diagnosis: ICD-10-CM Z71.89 Other specified counseling Active Diagnosis [facility] Diagnosis: ICD-10-CM L98.9 Disorder of the skin and subcutaneous tissue, unspecified Active Diagnosis [facility] Diagnosis: ICD-10-CM M54.50 Low back pain, unspecified Active Diagnosis [facility] Diagnosis: ICD-10-CM K51.819 Other ulcerative colitis with unspecified complications Active Diagnosis [facility] Diagnosis: ICD-10-CM Z00.01 Encounter for general adult medical exam w abnormal findings Active Diagnosis [facility] Diagnosis: ICD-10-CM K22.70 Morfin's esophagus without dysplasia Active Diagnosis [facility] Diagnosis: ICD-10-CM M54.59 Other low back pain Active Diagnosis [facility] Diagnosis: ICD-10-CM M25.521 Pain in right elbow Active Diagnosis [facility] Diagnosis: ICD-10-CM M79.671 Pain in right foot Active Diagnosis [facility] Diagnosis: ICD-10-CM S13.4XXA Sprain of ligaments of cervical spine, initial encounter Active Diagnosis [facility] Diagnosis: ICD-10-CM M25.512 Pain in left shoulder Active Diagnosis [facility] Diagnosis: ICD-10-CM Z00.00 Encntr for general adult medical exam w/o abnormal findings Active Diagnosis [facility] Medications Combined list of outpatient medications from Department of Defense and Veterans Affairs facilities.Medications provided include 1) outpatient medications from the last 15 months, and 2) patient-reported medications. Medication Details Route Status Patient Instructions Prescription Expires Prescription Number Last Dispense Date Ordering Provider Order Date Order Qty Source ACETAMINOPH EN 325MG TAB TAKE TWO TABLETS BY MOUTH FOUR TIMES A DAY NEEDED FOR PAIN CAUTION: DO NOT EXCEED 4000MG PER DAY ACETAMIN OPHEN (APAP) FROM ALL MEDS. ORAL ACTIVE 11/23/2025 [id number] Shana OJEDA ATHERINE R 2024 100 [facility] ALBUTEROL SO4 90MCG/ACTUA T (CFC-F) INHL,ORAL,8 .5GM INHALE 2 PUFFS ORAL INHALATI ON FOUR TIMES A DAY NEEDED FOR ASTHMA SHAKE WELL. RINSE MOUTHPIE CE FREQUENT LY TO PREVENT CLOGGING . RESPIR ATORY (INHAL ATION) 02/02/2025 [id number] 4 Shana OJEDA 2023 3 [facility] BALSALAZIDE DISODIUM 750MG CAP TAKE ONE CAPSULE BY MOUTH THREE TIMES A DAY FOR BOWEL INFLAMMA TION ORAL ACTIVE 05/19/2025 [id number] 4 Shana OJEDA 2023 270 [facility] CHOLECALCIF JU 50MCG (2,000UNIT) TAB TAKE ONE TABLET BY MOUTH ONCE A DAY FOR VITAMIN D DEFICIEN CY ORAL ACTIVE 05/19/2025 [id number] 4 Shana OJEDA 2023 90 [facility] CLOBETASOL PROPIONATE 0.05% CREAM,TOP APPLY LIGHTLY TO AFFECTED AREA(S) ONCE A DAY FOR PLAQUE PSORIASI S (EXTERNA L USE ONLY) TOPICA L ACTIVE 03/01/2026 [id number] 5 Shana OJEDA 2024 60 [facility] FLUOXETINE HCL 20MG CAP TAKE THREE CAPSULES BY MOUTH EVERY MORNING FOR DEPRESSI ON ORAL DISCONT INUED (EDIT) 11/23/2025 [id number] 5 Shana OJEDA 2024 270 [facility] FLUOXETINE HCL 20MG CAP TAKE TWO CAPSULES BY MOUTH EVERY MORNING FOR MOOD ORAL DISCONT INUED (EDIT) 01/15/2025 [id number] 4 Shana OJEDA 2023 180 [facility] FLUOXETINE HCL 40MG CAP TAKE TWO CAPSULES BY MOUTH EVERY MORNING FOR DEPRESSI ON ORAL ACTIVE 03/03/2026 [id number] 5 Shana OJEDA 2024 180 [facility] LOPERAMIDE HCL 2MG CAP TAKE ONE CAPSULE BY MOUTH TWICE DAILY NEEDED FOR DIARRHEA ORAL ACTIVE 05/19/2025 [id number] 4 Shana OJEDA 2023 180 [facility] MELOXICAM 15MG TAB TAKE ONE TABLET BY MOUTH ONCE A DAY ORAL DISCONT INUED BY PROVIDE R 09/27/2025 [id number] 5 Kalia TRUJILLO 2024 30 [place] [facility] MELOXICAM 15MG TAB TAKE ONE TABLET BY MOUTH ONCE A DAY ORAL DISCONT INUED 09/16/2025 [id number] 4 Kalia TRUJILLO 2023 30 [place] [facility] MIRTAZAPINE 30MG TAB TAKE ONE TABLET BY MOUTH AT BEDTIME FOR MOOD ORAL 01/15/2025 [id number] 4 Shana OJEDA R [address] [place] [address] ONDANSETRON HCL 4MG TAB,ORALLY DISINTEGRAT ING TAKE ONE TABLET UNDER THE TONGUE EVERY EIGHT(8) HOURS NEEDED FOR NAUSEA AND VOMITING SUBLIN GUAL ACTIVE 12/22/2025 [id number] 5 Yuko MCCABE ATE 2024 30 [place] [facility] ONDANSETRON HCL 4MG TAB,ORALLY DISINTEGRAT ING TAKE ONE TABLET UNDER THE TONGUE EVERY EIGHT(8) HOURS NEEDED FOR NAUSEA AND VOMITING SUBLIN GUAL DISCONT INUED 12/10/2025 [id number] 5 OSMANY POLANCO 2024 30 [place] [facility] PANTOPRAZOL E NA 40MG TAB,EC TAKE ONE TABLET BY MOUTH TWICE A DAY TAKE 30 MINUTES BEFORE MEAL(S) ORAL ACTIVE 12/22/2025 [id number] 5 Yuko MCCABE ATE 2024 180 [place] [facility] PANTOPRAZOL E NA 40MG TAB,EC TAKE ONE TABLET BY MOUTH EVERY MORNING BEFORE A MEAL FOR GASTROES OPHAGEAL REFLUX DISEASE TAKE 30 MINUTES BEFORE MEAL(S) ORAL DISCONT INUED 05/19/2025 [id number] 4 Shana OJEDA R 2023 90 [facility] PEG-3350/EL ECTROLYTES PWDR MIX AND DRINK 1 [place] BY MOUTH ONE-TIME FILL WITH WATER TO THE LINE INDICATE D ON CONTAINE R. DRINK DIRECTED . ORAL 01/08/2025 [id number] 5 GERGELY,M ATE 2024 1 [place] [facility] Allergies, Adverse Reactions, Alerts Combined list of allergies from Department of Defense and Veterans Affairs facilities. It does not include entries that were removed or entered in error. Substance Category Reaction Severity Reaction type Status Date Reported Comments Source ANTHRAX VACCINE Propensity to adverse reactions to drug (finding) active 2 [facility] ANTHRAX VACCINE Propensity to adverse reactions to drug (finding) Anaphylaxis active 0 [facility] PENICILLIN Propensity to adverse reactions to drug (finding) active 0 [facility] PENICILLIN-G RELATED PENICILLINS Drug allergy (disorder) active 1 [facility] Penicillins Drug allergy (disorder) Unknown active 8 [facility] [place] [place] Penicillins Drug allergy (disorder) active 6 [facility] VACCINES Drug allergy (disorder) active 2 [facility] Immunizations Combined list of available immunizations from the Department of Defense and Veterans Affairs facilities. Immunization Series Date Given Administered By Site Reaction Lot Number CVX Code Drug Consumer Credit Counselor Status Comments Source PPD (HISTORICAL) 2015 complet ed [facility] INFLUENZA, UNSPECIFIED FORMULATION 2011 NONE 88 complet ed [facility] LOT [id number] EXP 04-10-12, Left Deltoid [facility] Influenza, seasonal, injectable 1 2011 [id number] Sanofi Pasteur ([facility]) complet ed Influenza , seasonal, injectabl e DoD TDAP [address] [facility] influenza virus vaccine, split virus (incl. purified surface antigen)-reti red CODE 3 2009 [id number] Sanofi Pasteur ([facility]) complet ed influenza virus vaccine, split virus (incl. purified surface antigen)- retired CODE DoD TDAP 2009 115 complet ed [facility] vaccinia (smallpox) vaccine 1 2009 [id number] 75 Unknown (UNK) complet ed vaccinia (smallpox ) vaccine DoD anthrax vaccine 2 2009 UNK 24 Unknown (UNK) Not Given anthrax vaccine DoD influenza virus vaccine, split virus (incl. purified surface antigen)-reti red CODE 1 2009 [id number] 15 Unknown (UNK) complet ed influenza virus vaccine, split virus (incl. purified surface antigen)- retired CODE DoD anthrax vaccine 1 2009 [id number] [employer] [place] (MIP) complet ed anthrax vaccine DoD typhoid Vi capsular polysaccharid e vaccine 1 2009 [id number] Unknown (UNK) comple t ed typhoid Vi capsular polysacch aride vaccine DoD hepatitis A and hepatitis B vaccine 3 2009 [id number] 104 [employer] ([facility]) complet ed hepatitis A and hepatitis B vaccine DoD Novel influenza-H1N 1-09, injectable 1 2009 [id number] [address] [place]. (NOV) complet ed Novel influenza -C7T3-92, injectabl e DoD TD(ADULT) UNSPECIFIED FORMULATION 2009 139 complet ed per patient [facility] IPPI influenza virus vaccine, live, attenuated, for intranasal use 1 2007 [id number] 111 [employer]. (MED) complet ed influenza virus vaccine, live, attenuate d, for intranasa l use DoD hepatitis A and hepatitis B vaccine 2 2007 [id number] 104 [employer] (SK[facility]) complet ed hepatitis A and hepatitis B vaccine DoD measles, mumps and rubella virus vaccine 1 2007 [id number] Merck (MSD) complet ed measles, mumps and rubella virus vaccine DoD varicella virus vaccine 1 2007 UNK 21 Unknown (UNK) Not Given varicella virus vaccine DoD hepatitis A and hepatitis B vaccine 1 2007 [id number] [id number] 104 [employer] ([facility]) complet ed hepatitis A and hepatitis B vaccine DoD poliovirus vaccine, inactivated 1 2007 [id number] 10 Sanofi Pasteur ([facility]) complet ed polioviru s vaccine, inactivat ed DoD meningococcal polysaccharid e (groups A, C, Y and W-135) diphtheria toxoid conjugate vaccine (MCV4P) 1 2007 [id number] 114 Sanofi Pasteur ([facility]) complet ed meningoco ccal polysacch aride (groups A, C, Y and W-135) diphtheri a toxoid conjugate vaccine (MCV4P) DoD tetanus toxoid, reduced diphtheria toxoid, and acellular pertu is vaccine, adsorbed 1 2007 [id number] 115 Sanofi Pasteur ([facility]) complet ed tetanus toxoid, reduced diphtheri a toxoid, and acellular pertussis vaccine, adsorbed DoD Results Combined list of recent chemistry, hematology and other laboratory results from Department of Defense and Veterans Affairs, ranging from 15 months to all on record, depending upon the facility. Order Name Results Value Reference Range Date Interpretation Specimen Comments Source PROTEIN 24-HOUR URINE PANEL (MA-PB-ST L) VOLUME OF 24 HOUR URINE 1000 mL 01/05 Specimen Type: 24-HOUR URINE No comment entered. Ordering Provider: RAGHAV OJEDA Report Released Date/Time: Jan 05, 2025 09:34 AM Reporting Lab: [place] [facility] [address] [place] [address] Performing Lab: [place] [facility] [address] [place] [address] [facility] PROTEIN 24-HOUR URINE PANEL (MA-PB-ST L) PROTEIN [MASS/TIME] IN 24 HOUR URINE 130 mg/(24.h ) 6.8 - 299.9 01/05 Specimen Type: 24-HOUR URINE No comment entered. Ordering Provider: RAGHAV OJEDA Report Released Date/Time: Jan 05, 2025 09:34 AM Reporting Lab: [place] [facility] [address] [place] [address] Performing Lab: [place] [facility] [address] [place] [address] [facility] PROTEIN 24-HOUR URINE PANEL (MA-PB-ST L) PROTEIN [MASS/VOLUM E] IN 24 HOUR URINE 13.0 mg/dL 01/05 Specimen Type: 24-HOUR URINE No comment entered. Ordering Provider: RAGHAV OJEDA Report Released Date/Time: Jan 05, 2025 09:34 AM Reporting Lab: [place] [facility] [address] [place] [address] Performing Lab: [place] [facility] [address] [place] [address] [facility] PROTEIN ELECTROPH ORESIS URINE VOLUME OF 24 HOUR URINE 1000 mL 01/05 Specimen Type: 24-HOUR URINE Comment: Trace albumin present. Consistent with Normal pattern. Ordering Provider: RAGHAV OJEDA Report Released Date/Time: Jan 05, 2025 09:34 AM Reporting Lab: [place] [facility] [address] [place] [address] Performing Lab: [place] [address] [facility] PROTEIN ELECTROPH ORESIS URINE ALPHA 1 GLOBULIN/LA OTEIN.TOTAL IN 24 HOUR URINE BY ELECTROPHOR ESIS 0 01/05 Specimen Type: 24-HOUR URINE Comment: Trace albumin present. Consistent with Normal pattern. Ordering Provider: RAGHAV OJEDA Report Released Date/Time: Jan 05, 2025 09:34 AM Reporting Lab: [place] [facility] [address] [place] [address] Performing Lab: [place] [address] [facility] PROTEIN ELECTROPH ORESIS URINE ALPHA 2 GLOBULIN/LA OTEIN.TOTAL IN 24 HOUR URINE BY ELECTROPHOR ESIS 0 01/05 Specimen Type: 24-HOUR URINE Comment: Trace albumin present. Consistent with Normal pattern. Ordering Provider: RAGHAV OJEDA Report Released Date/Time: Jan 05, 2025 09:34 AM Reporting Lab: [place] [facility] [address] [place] [address] Performing Lab: [place] [address] [facility] PROTEIN ELECTROPH ORESIS URINE BETA 1 GLOBULIN(SO -PB-STL) 0 01/05 Specimen Type: 24-HOUR URINE Comment: Trace albumin present. Consistent with Normal pattern. Ordering Provider: RAGHAV OJEDA Report Released Date/Time: Jan 05, 2025 09:34 AM Reporting Lab: [place] [facility] [address] [place] [address] Performing Lab: [place] [address] [place] [facility] PROTEIN ELECTROPH ORESIS URINE GAMMA GLOBULIN/LA OTEIN.TOTAL IN 24 HOUR URINE BY ELECTROPHOR ESIS 0 01/05 Specimen Type: 24-HOUR URINE Comment: Trace albumin present. Consistent with Normal pattern. Ordering Provider: RAGHAV OJEDA Report Released Date/Time: Jan 05, 2025 09:34 AM Reporting Lab: [place] [facility] [address] [place] [address] Performing Lab: [place] [address] [facility] PROTEIN ELECTROPH ORESIS URINE PROTEIN [MASS/VOLUM E] IN 24 HOUR URINE 130 <100 - 100 01/05 Specimen Type: 24-HOUR URINE Comment: Trace albumin present. Consistent with Normal pattern. Ordering Provider: RAGHAV OJEDA Report Released Date/Time: Jan 05, 2025 09:34 AM Reporting Lab: [place] [facility] [address] [place] [address] Performing Lab: [place] [address] [facility] PROTEIN ELECTROPH ORESIS URINE CREATININE [MASS/TIME] IN 24 HOUR URINE 2.21 0.50 - 2.15 01/05 H Specimen Type: 24-HOUR URINE Comment: Trace albumin present. Consistent with Normal pattern. Ordering Provider: RAGHAV OJEDA Report Released Date/Time: Jan 05, 2025 09:34 AM Reporting Lab: [place] [facility] [address] [place] [address] Performing Lab: [place] [address] [facility] PROTEIN ELECTROPH ORESIS URINE ALBUMIN [MASS/TIME] IN 24 HOUR URINE BY ELECTROPHOR ESIS 100 01/05 Specimen Type: 24-HOUR URINE Comment: Trace albumin present. Consistent with Normal pattern. Ordering Provider: RAGHAV OJEDA Report Released Date/Time: Jan 05, 2025 09:34 AM Reporting Lab: [place] [facility] [address] [place] [address] Performing Lab: [place] [address] [facility] PROTEIN ELECTROPH ORESIS URINE PROTEIN/CRE ATININE [MASS RATIO] IN 24 HOUR URINE 59 mg/g{cre at} <100 - 100 01/05 Specimen Type: 24-HOUR URINE Comment: Trace albumin present. Consistent with Normal pattern. Ordering Provider: RAGHAV OJEDA Report Released Date/Time: Jan 05, 2025 09:34 AM Reporting Lab: [place] [facility] [address] [place] [address] Performing Lab: [place] [facility] [id number] [place] [id number] [place] [address] [facility] PROTEIN ELECTROPH ORESIS URINE INTERPRETAT ION (STL-PB) comment 01/05 Specimen Type: 24-HOUR URINE Comment: Trace albumin present. Consistent with Normal pattern. Ordering Provider: RAGHAV OJEDA Report Released Date/Time: Jan 05, 2025 09:34 AM Reporting Lab: [place] [facility] [address] [place] [address] Performing Lab: [place] [id number] [place] [address] [facility] PROTEIN ELECTROPH ORESIS URINE ABNORMAL PROTEIN BAND 1 (SO-PB-STL) No M-Mode detected . 01/05 Specimen Type: 24-HOUR URINE Comment: Trace albumin present. Consistent with Normal pattern. Ordering Provider: RAGHAV OJEDA Report Released Date/Time: Jan 05, 2025 09:34 AM Reporting Lab: [place] [facility] [address] [place] [address] Performing Lab: [place] [address] [facility] PROTEIN ELECTROPH ORESIS URINE ABNORMAL PROTEIN BAND 2 (SO-PB-STL) canc 01/05 Specimen Type: 24-HOUR URINE Comment: Trace albumin present. Consistent with Normal pattern. Ordering Provider: RAGHAV OJEDA Report Released Date/Time: Jan 05, 2025 09:34 AM Reporting Lab: [place] [facility] [address] [place] [address] Performing Lab: [place] [facility] [id number] [place] [id number] [place] [address] [facility] PROTEIN ELECTROPH ORESIS URINE ABNORMAL PROTEIN BAND 3 canc 01/05 Specimen Type: 24-HOUR URINE Comment: Trace albumin present. Consistent with Normal pattern. Ordering Provider: RAGHAV OJEDA Report Released Date/Time: Jan 05, 2025 09:34 AM Reporting Lab: [place] [facility] [address] [place] [address] Performing Lab: [place] [facility] [id number] [place] [address] [place] [facility] PROTEIN ELECTROPH ORESIS URINE [place] INTERPRETAT ION canc 01/05 Specimen Type: 24-HOUR URINE Comment: Trace albumin present. Consistent with Normal pattern. Ordering Provider: RAGHAV OJEDA Report Released Date/Time: Jan 05, 2025 09:34 AM Reporting Lab: [place] [facility] [address] [place] [address] Performing Lab: [place] [facility] [id number] [place] [address] [facility] POC UA (STL-PB-M A) PROTEIN [MASS/VOLUM E] IN URINE BY TEST STRIP Negative mg/dL 12/09 Specimen Type: URINE No comment entered. Ordering Provider: RAGHAV OJEDA Report Released Date/Time: Dec 09, 2024 04:23 PM Reporting Lab: [place] [facility] [address] [facility] [address] Performing Lab: [place] [facility] [address] [facility] [address] [facility] POC UA (STL-PB-M A) HEMOGLOBIN [MASS/VOLUM E] IN URINE BY TEST STRIP Negative 12/09 Specimen Type: URINE No comment entered. Ordering Provider: RAGHAV OJEDA Report Released Date/Time: Dec 09, 2024 04:23 PM Reporting Lab: [place] [facility] [address] [facility] [address] Performing Lab: [place] [facility] [address] [facility] [address] [facility] POC UA (STL-PB-M A) LEUKOCYTES [PRESENCE] IN URINE Negative 12/09 Specimen Type: URINE No comment entered. Ordering Provider: RAGHAV OJEDA Report Released Date/Time: Dec 09, 2024 04:23 PM Reporting Lab: [place] [facility] [address] [facility] [address] Performing Lab: [place] [facility] [address] [facility] [address] [facility] POC UA (STL-PB-M A) COLOR OF URINE Yellow 12/09 Specimen Type: URINE No comment entered. Ordering Provider: RAGHAV OJEDA Report Released Date/Time: Dec 09, 2024 04:23 PM Reporting Lab: [place] [facility] [address] [facility] [address] Performing Lab: [place] [facility] [address] [facility] [address] [facility] POC UA (STL-PB-M A) SPECIFIC GRAVITY OF URINE 1.015 1.005 - 1.030 12/09 Specimen Type: URINE No comment entered. Ordering Provider: RAGHAV OJEDA Report Released Date/Time: Dec 09, 2024 04:23 PM Reporting Lab: [place] [facility] [address] [facility] [address] [facility] [address] Performing Lab: [place] [facility] [address] [facility] [address] [facility] POC UA (STL-PB-M A) UROBILINOGE N [UNITS/VOLU ME] IN URINE 1.0 {Cameron 'U}/dL 0.1 - 1.0 12/09 Specimen Type: URINE No comment entered. Ordering Provider: RAGHAV OJEDA Report Released Date/Time: Dec 09, 2024 04:23 PM Reporting Lab: [place] [facility] [address] [facility] [address] Performing Lab: [place] [facility] [address] [facility] [address] [facility] POC UA (STL-PB-M A) BILIRUBIN.T OTAL [PRESENCE] IN URINE Negative 12/09 Specimen Type: URINE No comment entered. Ordering Provider: RAGHAV OJEDA Report Released Date/Time: Dec 09, 2024 04:23 PM Reporting Lab: [place] [facility] [address] [place] [address] Performing Lab: [place] [facility] [address] [place] [address] [place] [facility] POC UA (STL-PB-M A) KETONES [MASS/VOLUM E] IN URINE BY TEST STRIP Negative mg/dL 12/09 Specimen Type: URINE No comment entered. Ordering Provider: RAGHAV OJEDA Report Released Date/Time: Dec 09, 2024 04:23 PM Reporting Lab: [place] [facility] [address] [place] [address] Performing Lab: [place] [facility] [address] [facility] [address] [facility] POC UA (STL-PB-M A) GLUCOSE [MASS/VOLUM E] IN URINE BY TEST STRIP Negative mg/dL 12/09 Specimen Type: URINE No comment entered. Ordering Provider: RAGHAV OJEDA Report Released Date/Time: Dec 09, 2024 04:23 PM Reporting Lab: [place] [facility] [address] [facility] [address] Performing Lab: [place] [facility] [address] [facility] [address] [place] [facility] POC UA (STL-PB-M A) PH OF URINE 7.5 5.0 - 8.0 12/09 Specimen Type: URINE No comment entered. Ordering Provider: RAGHAV OJEDA Report Released Date/Time: Dec 09, 2024 04:23 PM Reporting Lab: [place] [facility] [address] [facility] [address] Performing Lab: [place] [facility] [address] [facility] [address] [place] [facility] POC UA (STL-PB-M A) NITRITE [PRESENCE] IN URINE BY TEST STRIP Negative 12/09 Specimen Type: URINE No comment entered. Ordering Provider: RAGHAV OJEDA Report Released Date/Time: Dec 09, 2024 04:23 PM Reporting Lab: [place] [facility] [address] [facility] [address] Performing Lab: [facility] [address] [facility] [address] [facility] POC UA (STL-PB-M A) CLARITY OF URINE Clear 12/09 Specimen Type: URINE No comment entered. Ordering Provider: RAGHAV OJEDA Report Released Date/Time: Dec 09, 2024 04:23 PM Reporting Lab: [facility] [address] [facility] [address] Performing Lab: [facility] [address] [facility] [address] [facility] PROTEIN ELECTROPH ORESIS BLOOD ALPHA 1 GLOBULIN [MASS/VOLUM E] IN SERUM OR PLASMA BY ELECTROPHOR ESIS 0.3 g/dL 0.2 - 0.3 11/22 Specimen Type: SERUM Comment: Reference Range: None Detected NOTE: THIS RESULT IS FLAGGED ABNORMAL Evaluation reveals a restricted band (M-spike) migrating in the gamma globulin region. If not already requested, Immunofixat ion should be considered. Test Performed by [employer], [address] [place] [address] Santos Medley M.D., Ph.D., Director of Laboratorie s , [facility] [id number] Ordering Provider: RAGHAV OJEDA Report Released Date/Time: Nov 22, 2024 11:58 AM Reporting Lab: [place] [facility] [address] [place] [address] Performing Lab: [place] [facility] [address] [facility] PROTEIN ELECTROPH ORESIS BLOOD ALPHA 2 GLOBULIN [MASS/VOLUM E] IN SERUM OR PLASMA BY ELECTROPHOR ESIS 0.8 g/dL 0.5 - 0.9 11/22 Specimen Type: SERUM Comment: Reference Range: None Detected NOTE: THIS RESULT IS FLAGGED ABNORMAL Evaluation reveals a restricted band (M-spike) migrating in the gamma globulin region. If not already requested, Immunofixat ion should be considered. Test Performed by [employer], [address] [place] [address] [place] Santos Medley M.D., Ph.D., Director of Laboratorie s , CLIA [id number] Ordering Provider: RAGHAV OJEDA Report Released Date/Time: Nov 22, 2024 11:58 AM Reporting Lab: [place] [facility] [address] [place] [address] Performing Lab: [place] [address] [facility] PROTEIN ELECTROPH ORESIS BLOOD BETA 1 GLOBULIN(SO -PB-STL) 0.4 g/dL 0.4 - 0.6 11/22 Specimen Type: SERUM Comment: Reference Range: None Detected NOTE: THIS RESULT IS FLAGGED ABNORMAL Evaluation reveals a restricted band (M-spike) migrating in the gamma globulin region. If not already requested, Immunofixat ion should be considered. Test Performed by [employer], [employer], [address] [place] [address] Santos Medley M.D., Ph.D., Director of Laboratorie s , CLIA [id number] Ordering Provider: RAGHAV OJEDA R Report Released Date/Time: Nov 22, 2024 11:58 AM Reporting Lab: [place] [facility] [address] [place] [address] Performing Lab: [place] [address] [facility] PROTEIN ELECTROPH ORESIS BLOOD GAMMA GLOBULIN [MASS/VOLUM E] IN SERUM OR PLASMA BY ELECTROPHOR ESIS 1.5 g/dL 0.8 - 1.7 11/22 Specimen Type: SERUM Comment: Reference Range: None Detected NOTE: THIS RESULT IS FLAGGED ABNORMAL Evaluation reveals a restricted band (M-spike) migrating in the gamma globulin region. If not already requested, Immunofixat ion should be considered. Test Performed by [employer], [employer], [address] [place] [address] Santos Medley M.D., Ph.D., Director of Laboratorie s , CLIA [id number] Ordering Provider: RAGHAV OJEDA Report Released Date/Time: Nov 22, 2024 11:58 AM Reporting Lab: [place] [facility] [address] [place] [address] Performing Lab: [place] [address] [facility] PROTEIN ELECTROPH ORESIS BLOOD PROTEIN [MASS/VOLUM E] IN SERUM OR PLASMA 8.0 g/dL 6.1 - 8.1 11/22 Specimen Type: SERUM Comment: Reference Range: None Detected NOTE: THIS RESULT IS FLAGGED ABNORMAL Evaluation reveals a restricted band (M-spike) migrating in the gamma globulin region. If not already requested, Immunofixat ion should be considered. Test Performed by [employer], [address] [place] [address] Santos Medley M.D., Ph.D., Director of [employer] , CLIA [id number] Ordering Provider: RAGHAV OJEDA R Report Released Date/Time: Nov 22, 2024 11:58 AM Reporting Lab: [place] [facility] [address] [place] [address] Performing Lab: [place] [address] [facility] PROTEIN ELECTROPH ORESIS BLOOD ALBUMIN [MASS/VOLUM E] IN SERUM OR PLASMA 4.7 g/dL 3.8 - 4.8 11/22 Specimen Type: SERUM Comment: Reference Range: None Detected NOTE: THIS RESULT IS FLAGGED ABNORMAL Evaluation reveals a restricted band (M-spike) migrating in the gamma globulin region. If not already requested, Immunofixat ion should be considered. Test Performed by [employer], [employer], [address] [place] [address] Santos Medley M.D., Ph.D., Director of Laboratorie s , CLIA [id number] Ordering Provider: RAGHAV OJEDA Report Released Date/Time: Nov 22, 2024 11:58 AM Reporting Lab: [place] [facility] [address] [place] [address] Performing Lab: [place] [id number] [place] [address] [facility] PROTEIN ELECTROPH ORESIS BLOOD BETA 2 GLOBULIN (SO-PB) 0.3 g/dL 0.2 - 0.5 11/22 Specimen Type: SERUM Comment: Reference Range: None Detected NOTE: THIS RESULT IS FLAGGED ABNORMAL Evaluation reveals a restricted band (M-spike) migrating in the gamma globulin region. If not already requested, Immunofixat ion should be considered. Test Performed by [employer], [address] [place] [address] Santos Medley M.D., Ph.D., Director of Laboratorie s , CLIA [id number] Ordering Provider: RAGHAV OJEDA Report Released Date/Time: Nov 22, 2024 11:58 AM Reporting Lab: [place] [facility] [address] [place] [address] Performing Lab: [place] [address] [facility] PROTEIN ELECTROPH ORESIS BLOOD INTERPRETAT ION (STL-PB) SEE NOTE 11/22 H Specimen Type: SERUM Comment: Reference Range: None Detected NOTE: THIS RESULT IS FLAGGED ABNORMAL Evaluation reveals a restricted band (M-spike) migrating in the gamma globulin region. If not already requested, Immunofixat ion should be considered. Test Performed by [employer], [address] [place] [address] Santos Medley M.D., Ph.D., Director of Laboratorie s , CLIA [id number] Ordering Provider: RAGHAV OJEDA R Report Released Date/Time: Nov 22, 2024 11:58 AM Reporting Lab: [place] [facility] [address] [place] [address] Performing Lab: [place] [facility] [address] [facility] PROTEIN ELECTROPH ORESIS BLOOD ABNORMAL PROTEIN BAND 1 (SO-PB-STL) 0.6 g/dL 11/22 H Specimen Type: SERUM Comment: Reference Range: None Detected NOTE: THIS RESULT IS FLAGGED ABNORMAL Evaluation reveals a restricted band (M-spike) migrating in the gamma globulin region. If not already requested, Immunofixat ion should be considered. Test Performed by [employer], [address] [place] [address] Santos Medley M.D., Ph.D., Director of Laboratorie s , CLIA [id number] Ordering Provider: RAGHAV OJEDA Report Released Date/Time: Nov 22, 2024 11:58 AM Reporting Lab: [place] [facility] [address] [facility] [place] [id number] Performing Lab: [place] [facility] [address] [facility] KAPPA/GUTIERREZ BDA LIGHT CHAINS, TOTAL (PB) KAPPA LIGHT CHAINS.FREE /LAMBDA LIGHT CHAINS.FREE [MASS RATIO] IN SERUM 0.63 1.29 - 2.55 11/22 L Specimen Type: SERUM Comment: This assay provides a measurement of the total kappa and total lambda light chains, ie., the amount of free (unattached ) light chain in circulation and the amount of light chain linked to heavy chain in intact immunoglobu albina molecules. Assays for serum free light chain only, kappa and lambda with ratio, may be more useful in evaluating and managing light chain gammo- pathies including those associated with myeloma, lymphoproli ferative disorders, and amyloidosis . Test Performed by [employer], [address] [place], [place] Santos Medley M.D., Ph.D., Director of Laboratorie s , CLIA [id number] Ordering Provider: RAGHAV OJEDA Report Released Date/Time: Nov 22, 2024 11:58 AM Reporting Lab: [place] [facility] [address] [place] [address] Performing Lab: [place] [address] [facility] KAPPA/GUTIERREZ BDA LIGHT CHAINS, TOTAL (PB) KAPPA LIGHT CHAINS [MASS/VOLUM E] IN SERUM OR PLASMA 210 mg/dL 176 - 443 11/22 Specimen Type: SERUM Comment: This assay provides a measurement of the total kappa and total lambda light chains, ie., the amount of free (unattached ) light chain in circulation and the amount of light chain linked to heavy chain in intact immunoglobu albina molecules. Assays for serum free light chain only, kappa and lambda with ratio, may be more useful in evaluating and managing light chain gammo- pathies including those associated with myeloma, lymphoproli ferative disorders, and amyloidosis . Test Performed by [employer], [address] [place] [address] Santos Medley M.D., Ph.D., Director of Laboratorie s , CLIA [id number] Ordering Provider: RAGHAV OJEDA Report Released Date/Time: Nov 22, 2024 11:58 AM Reporting Lab: [place] [facility] [address] [facility] [place] [address] Performing Lab: [place] [facility] [id number] [place] [address] [facility] KAPPA/GUTIERREZ BDA LIGHT CHAINS, TOTAL (PB) LAMBDA LIGHT CHAINS [MASS/VOLUM E] IN SERUM OR PLASMA 332 mg/dL 91 - 240 11/22 H Specimen Type: SERUM Comment: This assay provides a measurement of the total kappa and total lambda light chains, ie., the amount of free (unattached ) light chain in circulation and the amount of light chain linked to heavy chain in intact immunoglobu albina molecules. Assays for serum free light chain only, kappa and lambda with ratio, may be more useful in evaluating and managing light chain gammo- pathies including those associated with myeloma, lymphoproli ferative disorders, and amyloidosis . Test Performed by [employer], [employer], [address] [place], [place] Santos Medley M.D., Ph.D., Director of Laboratorie s , [facility] [id number] Ordering Provider: RAGHAV OJEDA Report Released Date/Time: Nov 22, 2024 11:58 AM Reporting Lab: [place] [facility] [address] [place] [address] Performing Lab: [place] [facility] [address] [facility] ANTI-NUCL EAR ANTIBODY (STL-PB) NUCLEAR AB [PRESENCE] IN SERUM NEGATIVE 11/22 Specimen Type: SERUM No comment entered. Ordering Provider: RAGHAV OJEDA Report Released Date/Time: Nov 22, 2024 11:58 AM Reporting Lab: [facility] [address] [facility] [place] [address] Performing Lab: [facility] [address] [facility] [place] [address] [facility] VITAMIN D, 25-HYDROX Y 25-HYDROXYV ITAMIN D3 [MASS/VOLUM E] IN SERUM OR PLASMA 27.9 ng/mL 30 - 96 11/22 L Specimen Type: SERUM No comment entered. Ordering Provider: RAGHAV OJEDA Report Released Date/Time: Nov 22, 2024 11:58 AM Reporting Lab: [place] [facility] [address] [place] [address] Performing Lab: [place] [facility] [address] [place] [address] [facility] URINALYSI S (STL-PB) COLOR OF URINE [place] 11/22 Specimen Type: URINE No comment entered. Ordering Provider: RAGHAV OJEDA Report Released Date/Time: Nov 22, 2024 11:58 AM Reporting Lab: [place] [facility] [address] [place] [address] Performing Lab: [place] [facility] [address] [place] [address] [facility] URINALYSI S (STL-PB) BILIRUBIN.T OTAL [PRESENCE] IN URINE BY TEST STRIP NEGATIVE mg/dL 11/22 Specimen Type: URINE No comment entered. Ordering Provider: RAGHAV OJEDA Report Released Date/Time: Nov 22, 2024 11:58 AM Reporting Lab: [place] [facility] [address] [place] [address] Performing Lab: [place] [facility] [address] [place] [address] [facility] URINALYSI S (STL-PB) PH OF URINE BY TEST STRIP 6.0 5.0 - 8.0 11/22 Specimen Type: URINE No comment entered. Ordering Provider: RAGHAV OJEDA Report Released Date/Time: Nov 22, 2024 11:58 AM Reporting Lab: [place] [facility] [address] [place] [address] Performing Lab: [place] [facility] [address] [place] [id number] [facility] URINALYSI S (STL-PB) APPEARANCE OF URINE TURBID 11/22 H Specimen Type: URINE No comment entered. Ordering Provider: RAGHAV OJEDA Report Released Date/Time: Nov 22, 2024 11:58 AM Reporting Lab: [place] [facility] [address] [place] [address] Performing Lab: [place] [facility] [address] [place] [address] [facility] URINALYSI S (STL-PB) NITRITE [PRESENCE] IN URINE BY TEST STRIP NEGATIVE mg/dL 11/22 Specimen Type: URINE No comment entered. Ordering Provider: RAGHAV OJEDA Report Released Date/Time: Nov 22, 2024 11:58 AM Reporting Lab: [place] [facility] [address] [place] [address] Performing Lab: [place] [facility] [address] [place] [address] [facility] URINALYSI S (STL-PB) YEAST [#/AREA] IN URINE SEDIMENT BY MICROSCOPY HIGH POWER FIELD MANY/[HP F] 11/22 H Specimen Type: URINE No comment entered. Ordering Provider: RAGHAV OJEDA Report Released Date/Time: Nov 22, 2024 11:58 AM Reporting Lab: [place] [facility] [address] [place] [address] Performing Lab: [place] [facility] [address] [place] [address] [place] [facility] URINALYSI S (STL-PB) MUCUS [PRESENCE] IN URINE SEDIMENT BY LIGHT MICROSCOPY RARE/[LP F] 11/22 Specimen Type: URINE No comment entered. Ordering Provider: RAGHAV OJEDA Report Released Date/Time: Nov 22, 2024 11:58 AM Reporting Lab: [place] [facility] [address] [place] [address] Performing Lab: [place] [facility] [address] [place] [address] [facility] URINALYSI S (STL-PB) URATE CRYSTALS AMORPHOUS [PRESENCE] IN URINE SEDIMENT BY LIGHT MICROSCOPY OCCASION AL/[HPF] 11/22 H Specimen Type: URINE No comment entered. Ordering Provider: RAGHAV OJEDA Report Released Date/Time: Nov 22, 2024 11:58 AM Reporting Lab: [place] [facility] [address] [place] [address] Performing Lab: [place] [facility] [address] [place] [address] [place] [facility] URINALYSI S (STL-PB) GLUCOSE [MASS/VOLUM E] IN URINE BY TEST STRIP NORMALmg /dL 11/22 Specimen Type: URINE No comment entered. Ordering Provider: RAGHAV OJEDA Report Released Date/Time: Nov 22, 2024 11:58 AM Reporting Lab: [place] [facility] [address] [place] [address] Performing Lab: [place] [facility] [address] [place] [address] [place] [facility] URINALYSI S (STL-PB) PROTEIN [MASS/VOLUM E] IN URINE BY TEST STRIP NEGATIVE mg/dL 11/22 Specimen Type: URINE No comment entered. Ordering Provider: RAGHAV OJEDA R Report Released Date/Time: Nov 22, 2024 11:58 AM Reporting Lab: [place] [facility] [address] [place] [address] Performing Lab: [place] [facility] [address] [place] [address] [facility] URINALYSI S (STL-PB) URN.UROBILI NOGEN NORMALmg /dL 11/22 Specimen Type: URINE No comment entered. Ordering Provider: RAGHAV OJEDA Report Released Date/Time: Nov 22, 2024 11:58 AM Reporting Lab: [place] [facility] [address] [place] [address] Performing Lab: [place] [facility] [address] [place] [address] [facility] URINALYSI S (STL-PB) HEMOGLOBIN [MASS/VOLUM E] IN URINE BY TEST STRIP NEGATIVE mg/dL 11/22 Specimen Type: URINE No comment entered. Ordering Provider: RAGHAV OJEDA Report Released Date/Time: Nov 22, 2024 11:58 AM Reporting Lab: [place] [facility] [address] [place] [address] Performing Lab: [place] [facility] [address] [place] [address] [facility] URINALYSI S (STL-PB) KETONES [MASS/VOLUM E] IN URINE BY TEST STRIP NEGATIVE mg/dL 11/22 Specimen Type: URINE No comment entered. Ordering Provider: RAGHAV OJEDA R Report Released Date/Time: Nov 22, 2024 11:58 AM Reporting Lab: [place] [facility] [address] [place] [address] Performing Lab: [place] [facility] [address] [place] [address] [facility] URINALYSI S (STL-PB) URN.LEUK.ES T. NEGATIVE 11/22 Specimen Type: URINE No comment entered. Ordering Provider: RAGHAV OJEDA Report Released Date/Time: Nov 22, 2024 11:58 AM Reporting Lab: [place] [facility] [address] [place] [address] Performing Lab: [place] [facility] [address] [place] [address] [facility] URINALYSI S (STL-PB) SPECIFIC GRAVITY OF URINE 1.032 1.005 - 1.029 11/22 H Specimen Type: URINE No comment entered. Ordering Provider: RAGHAV OJEDA Report Released Date/Time: Nov 22, 2024 11:58 AM Reporting Lab: [place] [facility] [address] [place] [address] Performing Lab: [place] [facility] [address] [place] [id number] [facility] HGA1C HEMOGLOBIN A1C/HEMOGLO BIN.TOTAL IN BLOOD 5.3 4.0 - 6.0 11/22 Specimen Type: BLOOD No comment entered. Ordering Provider: RAGHAV OJEDA Report Released Date/Time: Nov 22, 2024 11:58 AM Reporting Lab: [place] [facility] [address] [place] [address] Performing Lab: [place] [facility] [address] [place] [address] [facility] CBC LEUKOCYTES [#/VOLUME] IN BLOOD BY AUTOMATED COUNT 12.2 10*3/uL 3.6 - 11.2 11/22 H Specimen Type: BLOOD No comment entered. Ordering Provider: RAGHAV OJEDA Report Released Date/Time: Nov 22, 2024 11:58 AM Reporting Lab: [place] [facility] [address] [place] [address] Performing Lab: [place] [facility] [address] [place] [address] [facility] CBC ERYTHROCYTE S [#/VOLUME] IN BLOOD BY AUTOMATED COUNT 5.07 10*6/uL 4.10 - 5.70 11/22 Specimen Type: BLOOD No comment entered. Ordering Provider: RAGHAV OJEDA Report Released Date/Time: Nov 22, 2024 11:58 AM Reporting Lab: [place] [facility] [address] [place] [address] Performing Lab: [place] [facility] [address] [place] [address] [facility] CBC HEMOGLOBIN [MASS/VOLUM E] IN BLOOD 14.5 g/dL 13.1 - 16.8 11/22 Specimen Type: BLOOD No comment entered. Ordering Provider: RAGHAV OJEDA Report Released Date/Time: Nov 22, 2024 11:58 AM Reporting Lab: [place] [facility] [address] [place] [address] Performing Lab: [place] [facility] [address] [place] [id number] [facility] CBC HEMATOCRIT [VOLUME FRACTION] OF BLOOD 43.8 38.2 - 48.4 11/22 Specimen Type: BLOOD No comment entered. Ordering Provider: RAGHAV OJEDA Report Released Date/Time: Nov 22, 2024 11:58 AM Reporting Lab: [place] [facility] [address] [place] [address] Performing Lab: [place] [facility] [address] [place] [address] [facility] CBC MCV [ENTITIC VOLUME] BY AUTOMATED COUNT 86.4 fL 80.0 - 100.0 11/22 Specimen Type: BLOOD No comment entered. Ordering Provider: RAGHAV OJEDA Report Released Date/Time: Nov 22, 2024 11:58 AM Reporting Lab: [place] [facility] [address] [place] [address] Performing Lab: [place] [facility] [address] [place] [address] [facility] CBC MCH [ENTITIC MASS] BY AUTOMATED COUNT 28.6 pg 27.0 - 34.0 11/22 Specimen Type: BLOOD No comment entered. Ordering Provider: RAGHAV OJEDA Report Released Date/Time: Nov 22, 2024 11:58 AM Reporting Lab: [place] [facility] [address] [place] [address] Performing Lab: [place] [facility] [address] [place] [address] [facility] CBC MCHC [MASS/VOLUM E] BY AUTOMATED COUNT 33.1 g/dL 33.0 - 36.0 11/22 Specimen Type: BLOOD No comment entered. Ordering Provider: RAGHAV OJEDA R Report Released Date/Time: Nov 22, 2024 11:58 AM Reporting Lab: [place] [facility] [address] [place] [address] Performing Lab: [place] [facility] [address] [place] [address] [facility] CBC PLATELETS [#/VOLUME] IN BLOOD BY AUTOMATED COUNT 247 10*3/uL 150 - 400 11/22 Specimen Type: BLOOD No comment entered. Ordering Provider: RAGHAV OJEDA R Report Released Date/Time: Nov 22, 2024 11:58 AM Reporting Lab: [place] [facility] [address] [place] [address] Performing Lab: [place] [facility] [address] [place] [address] [facility] CBC PLATELET MEAN VOLUME [ENTITIC VOLUME] IN BLOOD BY AUTOMATED COUNT 11.9 fL 7.5 - 11.2 11/22 H Specimen Type: BLOOD No comment entered. Ordering Provider: RAGHAV OJEDA R Report Released Date/Time: Nov 22, 2024 11:58 AM Reporting Lab: [place] [facility] [address] [place] [address] Performing Lab: [place] [facility] [address] [place] [address] [facility] CBC ERYTHROCYTE DISTRIBUTIO N WIDTH [RATIO] BY AUTOMATED COUNT 14.0 11.8 - 15.1 11/22 Specimen Type: BLOOD No comment entered. Ordering Provider: RAGHAV OJEDA R Report Released Date/Time: Nov 22, 2024 11:58 AM Reporting Lab: [place] [facility] [address] [place] [address] Performing Lab: [place] [facility] [address] [place] [address] [place] [facility] CBC LYMPHOCYTES /100 LEUKOCYTES IN BLOOD BY AUTOMATED COUNT 7.7 11/22 Specimen Type: BLOOD No comment entered. Ordering Provider: RAGHAV OJEDA Report Released Date/Time: Nov 22, 2024 11:58 AM Reporting Lab: [place] [facility] [address] [place] [address] Performing Lab: [place] [facility] [address] [place] [address] [facility] CBC MONOCYTES/1 00 LEUKOCYTES IN BLOOD BY AUTOMATED COUNT 3.6 11/22 Specimen Type: BLOOD No comment entered. Ordering Provider: RAGHAV OJEDA Report Released Date/Time: Nov 22, 2024 11:58 AM Reporting Lab: [place] [facility] [address] [place] [address] Performing Lab: [place] [facility] [address] [place] [address] [facility] CBC NEUTROPHILS /100 LEUKOCYTES IN BLOOD BY AUTOMATED COUNT 87.8 11/22 Specimen Type: BLOOD No comment entered. Ordering Provider: RAGHAV OJEDA Report Released Date/Time: Nov 22, 2024 11:58 AM Reporting Lab: [place] [facility] [address] [place] [address] Performing Lab: [place] [facility] [address] [place] [address] [facility] CBC EOSINOPHILS /100 LEUKOCYTES IN BLOOD BY AUTOMATED COUNT 0.4 11/22 Specimen Type: BLOOD No comment entered. Ordering Provider: RAGHAV OJEDA R Report Released Date/Time: Nov 22, 2024 11:58 AM Reporting Lab: [place] [facility] [address] [place] [address] Performing Lab: [place] [facility] [address] [place] [address] [facility] CBC BASOPHILS/1 00 LEUKOCYTES IN BLOOD BY AUTOMATED COUNT 0.2 11/22 Specimen Type: BLOOD No comment entered. Ordering Provider: RAGHAV OJEDA Report Released Date/Time: Nov 22, 2024 11:58 AM Reporting Lab: [place] [facility] [address] [place] [address] Performing Lab: [place] [facility] [address] [place] [address] [facility] CBC LYMPHOCYTES [#/VOLUME] IN BLOOD BY AUTOMATED COUNT 0.93 10*3/uL 0.77 - 4.50 11/22 Specimen Type: BLOOD No comment entered. Ordering Provider: RAGHAV OJEDA Report Released Date/Time: Nov 22, 2024 11:58 AM Reporting Lab: [place] [facility] [address] [place] [address] Performing Lab: [place] [facility] [address] [place] [id number] [facility] CBC MONOCYTES [#/VOLUME] IN BLOOD BY AUTOMATED COUNT 0.44 10*3/uL 0.19 - 0.8 11/22 Specimen Type: BLOOD No comment entered. Ordering Provider: RAGHAV OJEDA R Report Released Date/Time: Nov 22, 2024 11:58 AM Reporting Lab: [place] [facility] [address] [place] [address] Performing Lab: [place] [facility] [address] [place] [address] [facility] CBC NEUTROPHILS [#/VOLUME] IN BLOOD BY AUTOMATED COUNT 10.66 10*3/uL 2.10 - 8.00 11/22 H Specimen Type: BLOOD No comment entered. Ordering Provider: RAGHAV OJEDA Report Released Date/Time: Nov 22, 2024 11:58 AM Reporting Lab: [place] [facility] [address] [place] [address] Performing Lab: [place] [facility] [address] [place] [address] [facility] CBC EOSINOPHILS [#/VOLUME] IN BLOOD BY AUTOMATED COUNT 0.05 10*3/uL 0.00 - 0.60 11/22 Specimen Type: BLOOD No comment entered. Ordering Provider: RAGHAV OJEDA Report Released Date/Time: Nov 22, 2024 11:58 AM Reporting Lab: [place] [facility] [address] [place] [address] Performing Lab: [place] [facility] [address] [place] [address] [facility] CBC BASOPHILS [#/VOLUME] IN BLOOD BY AUTOMATED COUNT 0.03 10*3/uL 0.00 - 0.20 11/22 Specimen Type: BLOOD No comment entered. Ordering Provider: RAGHAV OJEDA Report Released Date/Time: Nov 22, 2024 11:58 AM Reporting Lab: [place] [facility] [address] [place] [address] Performing Lab: [place] [facility] [address] [place] [address] [facility] CBC IMMATURE GRANULOCYTE S/100 LEUKOCYTES IN BLOOD BY AUTOMATED COUNT 0.3 11/22 Specimen Type: BLOOD No comment entered. Ordering Provider: RAGHAV OJEDA Report Released Date/Time: Nov 22, 2024 11:58 AM Reporting Lab: [place] [facility] [address] [place] [facility] Performing Lab: [place] [facility] [address] [place] [address] [facility] CBC IMMATURE GRANULOCYTE S [#/VOLUME] IN BLOOD BY AUTOMATED COUNT 0.04 10*3/uL 0.00 - 0.05 11/22 Specimen Type: BLOOD No comment entered. Ordering Provider: RAGHAV OJEDA Report Released Date/Time: Nov 22, 2024 11:58 AM Reporting Lab: [place] [facility] [address] [place] [address] Performing Lab: [place] [facility] [address] [place] [address] [facility] Vital Signs Combined list of inpatient and outpatient Vital Signs from Department of Defense and Veterans Affairs, ranging from 12 months to all on record, depending upon the facility. Vital Sign Value Date Comments Source SYSTOLIC BLOOD PRESSURE 123 02/28/2025 10:03:00 [place] [facility] DIASTOLIC BLOOD PRESSURE 87 02/28/2025 10:03:00 [place] [facility] TEMPERATURE 97.8 02/28/2025 10:03:00 [facility] [place] [facility] PULSE 68 02/28/2025 10:03:00 [facility] [place] [facility] SYSTOLIC BLOOD PRESSURE 108 12/09/2024 16:17:14 [place] [facility] DIASTOLIC BLOOD PRESSURE 71 12/09/2024 16:17:14 [place] [facility] PULSE OXIMETRY 97 12/09/2024 16:17:14 [facility] [place] [facility] WEIGHT 222.8 12/09/2024 16:17:14 [facility] [place] [facility] BMI 35 kg/m2 12/09/2024 16:17:14 [facility] [place] [facility] TEMPERATURE 98.3 12/09/2024 16:17:14 [facility] [place] [facility] PULSE 67 12/09/2024 16:17:14 [facility] [place] [facility] RESPIRATION 18 12/09/2024 16:17:14 [place] [facility] SYSTOLIC BLOOD PRESSURE 120 11/22/2024 11:45:00 [place] [facility] DIASTOLIC BLOOD PRESSURE 81 11/22/2024 11:45:00 [place] [facility] PULSE OXIMETRY 96 11/22/2024 11:45:00 [facility] [place] [facility] WEIGHT 212.1 11/22/2024 11:45:00 [facility] [place] [facility] BMI 33 kg/m2 11/22/2024 11:45:00 [place] [facility] TEMPERATURE 98.2 11/22/2024 11:45:00 [facility] [place] [facility] PULSE 81 11/22/2024 11:45:00 [facility] [place] [facility] RESPIRATION 18 11/22/2024 11:45:00 [facility] [place] [facility] SYSTOLIC BLOOD PRESSURE 119 09/16/2024 15:59:24 [place] [facility] DIASTOLIC BLOOD PRESSURE 89 09/16/2024 15:59:24 [facility] [place] [facility] PULSE OXIMETRY 98 09/16/2024 15:59:24 [facility] [place] [facility] WEIGHT 225.5 09/16/2024 15:59:24 [place] [facility] BMI 35 kg/m2 09/16/2024 15:59:24 [place] [facility] TEMPERATURE 97.9 09/16/2024 15:59:24 [place] [facility] PULSE 68 09/16/2024 15:59:24 [place] [facility] RESPIRATION 18 09/16/2024 15:59:24 [place] [facility] SYSTOLIC BLOOD PRESSURE 116 07/18/2024 13:59:41 [place] [facility] DIASTOLIC BLOOD PRESSURE 78 07/18/2024 13:59:41 [place] [facility] PULSE OXIMETRY 97 07/18/2024 13:59:41 [facility] [place] [facility] TEMPERATURE 98.2 07/18/2024 13:59:41 [place] [facility] PULSE 62 07/18/2024 13:59:41 [place] [facility] RESPIRATION 18 07/18/2024 13:59:41 [place] [facility] Encounters Combined list of: 1) Encounters from Department of Veterans Affairs facilities going backup to the last 18 months, not all VA inpatient encounters are included; 2) Encounters from the Department of Defense facilities going backup to 280 months. Location Location Details Encounter Type Encounter Number Reason For Visit Attending Provider ADM Date DC Date Status Disposition [place] [place] [facility] [place] OUTPATIENT [id number] ALLI ADKINS 05/15 Released w/o Limitations [place] [facility] [id number] IMM CATARINA CHASE 05/18 [place]ased [place]/o Limitations [place]PAT[place] [id number] itchy back small red bumps SHADI OLSEN 05/25 [place] Limitations [place] [id number] JUANY SANTANA 05/29 [place] Lim[place] [facility] OUTPATIENT [id number] EVAL OPEN WOUND ON L/HAND ROLAND CORDERO 06/17 [facility]ased w/o Limitations [facility] [place] [place] OUTPATIENT [id number] TWIN/PC N NICOLE LANEKIM Huntley. 06/20 Released w/o Limitations [facility] [place] [place] OUTPATIENT [id number] DISCOLO RATION TO TESTICL ES JAIME LOPEZ S 06/26 Released with Work/Duty Limitations [facility] [place] [place] [place]PATIENT [id number] EVAL SWOLLEN TESTICL E/BURNI NG,ITCH ING DIANNA LYNN 06/29 Released with Work/Duty Limitations [facility] [place] [place] [place]PATIENT [id number] SANTHOSH MONROY 09/28 Released w/o Limitations [facility] [place] Jaylin sparks [facility]) OUTPATIENT [id number] [facility] TERESA YOST 01/01 Released w/o Limitations Jaylin George [facility]) Jaylin Kelly r [facility]) OUTPATIENT [id number] MOB/330 TH MP CO/F/U FROM ER TANNERREUBEN O 01/13 Released w/o Limitations Jaylin George [facility]) Jaylin Kelly r [facility]) OUTPATIENT [id number] [facility] ALIRIO RYAN 01/14 Released with Work/Duty Limitations Jaylin albright [facility]) Jaylin sparks [facility]) OUTPATIENT [id number] MOB/330 TH MP CO/LAB RESULTS FLORES REUBEN O 01/16 Released w/o Limitations D. D. Mikaylaenho wer [facility] [place]) DDulce D. Linoe r [facility] [place]) OUTPATIENT [id number] [facility] JUANITA HANSON 01/16 Released w/o Limitations D. D. Eisenho wer [facility] [place] DDulce Mosqueda Eisenhshailae r [facility] [place]) OUTPATIENT [id number] MOB/330 TH MP CO/LAB RESULTS REUBEN TANNER Keegan 01/17 [facility]ased w/o Limitations [facility] [place]) [place] [facility] TELE CONSULT [id number] [facility]: Clinica l Review VAERS report dated 0 AURE VERA 01/25 [place] [facility] [place] ([facility]) TELE CONSULT [id number] [facility] are [facility]: Clinica l Review VAERS report dated 12/31/09 AURE VERA 02/27 [place] [facility] OUTPATIENT [id number] 05/22 Released w/o Limitations Theater Facilit y [facility]) OUTPATIENT [id number] POST-D PATTIE AREVALO 12/30 Released w/o Limitations [facility]) [facility]) OUTPATIENT [id number] follow- up PATTIE AREVALO 12/31 Released w/o Limitations [facility]) [facility] Outpatient Encounter [id number] 11/12 [facility] Out[facility] Encounter [id number] Diagnos is: ICD-10- CM Z00.00 Encntr for general adult medical exam w/o abnorma l finding s LYNETTE,EVERARDO THERINE R 11/18 [facility] Outpatient Encounter [id number] 11/19 [facility] [place] [facility] Outpatient Encounter [id number] 11/21 [place] [facility] Outpatient Encounter [id number] 01/14 [facility] OFF/OP EST MAY X REQ PHY/QHP [id number] Diagnos is: ICD-10- CM M25.512 Pain in left shoulde r Aníbal CORDERO 01/20 [facility] Outpatient Encounter [id number] 01/20 [facility] OFFICE O/P EST LOW 20 MIN [id number] Diagnos is: ICD-10- CM S13.4XX A Sprain of ligamen ts of cervica l spine, initial encount er EDVIN ROLAND G 01/20 [facility] [place] [facility] Outpatient Encounter [id number] 01/25 [place] [facility] Outpatient Encounter [id number] 01/31 [facility] Outpatient Encounter [id number] 02/28 [facility] [place] [facility] Outpatient Encounter [id number] 03/07 [place] [facility] Outpatient Encounter [id number] 04/11 [facility] Outpatient Encounter [id number] 04/21 [facility] Outpatient Encounter [id number] 04/25 [facility] [place] [facility] Outpatient Encounter [id number] SAHU M 05/17 [place] [facility] [place] [facility] Outpatient Encounter [id number] 05/17 [place] [facility] Outpatient Encounter [id number] 05/17 [facility] OFFICE O/P NEW SF 15 MIN [id number] Diagnos is: ICD-10- CM M54.59 Other low back pain YOAN RAVI 06/24 [facility] En[facility] [id number] 07/11 [facility] OFF/OP EST FEBRUARY X REQ PHY/QHP [id number] Diagnos is: ICD-10- CM M79.671 Pain in right foot Aníbal CORDERO 07/18 [facility] CHIROPRACT MANJ XTRSPINL 1/ [id number] Diagnos is: ICD-10- CM M54.59 Other low back pain YOAN RAVI ASE MARTINEZ 07/18 [facility] [place] [facility] Outpatient Encounter [id number] 07/21 [place] [facility] Outpatient Encounter [id number] 07/26 [facility] Outpatient Encounter [id number] 08/02 [facility] Outpatient Encounter [id number] 08/05 [facility] [place] [facility] Outpatient Encounter [id number] 08/08 [place] [facility] Outpatient Encounter [id number] 08/15 [facility] Outpatient Encounter [id number] 08/17 [facility] CHIROPRACT MANJ XTRSPINL 1/> [id number] Diagnos is: ICD-10- CM M54.59 Other low back pain YOAN RAVI ASE MARTINEZ 09/02 [facility] Outpatient Encounter [id number] 09/05 [facility] Outpatient Encounter [id number] 09/12 [facility] CHIROPRACT MANJ XTRSPINL 1/> [id number] Diagnos is: ICD-10- CM M54.59 Other low back pain YOAN RAVI ASE MARTINEZ 09/12 [facility] [place] [facility] Outpatient Encounter [id number] 09/15 [place] [facility] En[facility] [id number] EVERARDO OJEDA 09/16 [facility] OFF/OP EST MAY X REQ PHY/QHP [id number] Diagnos is: ICD-10- CM M25.521 Pain in right elbow Aníbal CORDERO 09/16 [facility] Outpatient Encounter [id number] 09/28 [facility] Outpatient Encounter [id number] 10/06 [facility] Outpatient Encounter [id number] 10/17 [facility] Outpatient Encounter [id number] 10/25 [facility] CHIROPRACT MANJ XTRSPINL / [id number] Diagnos is: ICD-10- CM M54.59 Other low back pain YOAN RAVI 11/07 [facility] Outpatient Encounter [id number] 11/22 [facility] OFF/OP EST MAY X REQ PHY/QHP [id number] Diagnos is: ICD-10- CM K22.70 Morfin 's esophag us without dysplas ia Aníbal CORDERO 11/22 [facility] Outpatient Encounter [id number] EVERARDO OJEDA R 11/22 [facility] Outpatient Encounter [id number] Diagnos is: ICD-10- CM Z00.01 Encount er for general adult medical exam w abnorma l finding s EVERARDO OJEDA R 11/22 [facility] Outpatient Encounter [id number] 11/23 [facility] SYNCH AUDIO-ONLY EST MOD 30 [id number] Diagnos is: ICD-10- CM 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 OFF/OP EST MAY X REQ PHY/QHP [id number] Diagnos is: ICD-10- CM M54.50 Low back pain, unspeci fied Aníbal CORDERO 12/09 [facility] [place] [facility] Outpatient Encounter [id number] 12/19 [place] [facility] Outpatient Encounter [id number] 12/21 [facility] Outpatient Encounter [id number] 12/21 [facility] Outpatient Encounter [id number] 12/22 [facility] En[facility] [id number] 12/28 [facility] Outpatient Encounter [id number] 01/03 [facility] N [place] [facility] Outpatient Encounter [id number] 01/03 [place] [facility] Outpatient Encounter [id number] 01/09 [facility] N [place] [facility] Outpatient Encounter [id number] 01/09 [place] [facility] Outpatient Encounter [id number] 01/09 [facility] Outpatient Encounter [id number] 02/03 [facility] OFF/OP EST MAY X REQ PHY/QHP [id number] Diagnos is: ICD-10- CM L98.9 Disorde r of the skin and subcuta neous tissue, unspeci fied Aníbal CORDERO 02/06 [facility] OFF/OP EST MAY X REQ PHY/QHP [id number] Diagnos is: ICD-10- CM 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.89 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 CUSTRED,TO RRI J 02/28 [facility] Outpatient Encounter [id number] 02/28 [facility] OFFICE O/P EST MOD 30 MIN [id number] Diagnos is: ICD-10- CM F32.9 Major depress galilea disorde r, single episode , unspeci fied EVERARDO OJEDA THERINE R 02/28 [facility] Outpatient Encounter [id number] DEBBIE NAVARRETE S 02/28 [facility] Outpatient Encounter [id number] 03/01 [facility] Outpatient Encounter [id number] 03/02 [facility] SYSTEM SYNCH AUDIO-ONLY EST LOW 20 [id number] Diagnos is: ICD-10- CM F32.9 Major depress galilea disorde r, single episode , unspeci fied EVERARDO OJEDA THERINE R 03/02 [facility] Outpatient Encounter [id number] PRIYA KEITH RAPHAEL 03/29 [facility] OFFICE O/P EST MOD 30 MIN [id number] Diagnos is: ICD-10- CM F32.9 Major depress galilea disorde r, single episode , unspeci fied EVERARDO OJEDA THERINE R 04/07 [facility] Outpatient Encounter [id number] 04/10 [facility] Outpatient Encounter [id number] 04/19 [facility] Outpatient Encounter [id number] 04/19 [facility] Outpatient Encounter [id number] PRIYA KEITHA 05/01 [facility] Outpatient Encounter [id number] 05/02 [facility] Outpatient Encounter [id number] 05/02 [facility] Outpatient Encounter [id number] PRIYA KEITH RAPHAEL 05/02 [facility] Procedures Combined list of: 1) Procedures from Department of Veterans Affairs facilities going back up to thelast 18 months, not all [place] non-surgical procedures are included; 2) All procedures from the Department of Defense facilities. Procedure Procedure Type Code Date Perfomer Comments Sour e PHYS/OTH QUALIFIED HEALTH RESEARCH CHEF QUALIFIED,EDUCATION, TRAIN,LICENSURE/REGU LATION (WHEN APPLICABLE) EDUC SER RENDERED TO PATS IN A GRP SETTING (EG,,OBESITY ,OR DIABETIC INSTRUCT) 12/31/19 11 [facility] PHYS/OTH QUALIFIED HEALTH RESEARCH CHEF QUALIFIED,EDUCATION, TRAIN,LICENSURE/REGU LATION (WHEN APPLICABLE) EDUC SER RENDERED TO PATS IN A GRP SETTING (EG,,OBESITY ,OR DIABETIC INSTRUCT) 12/28/19 11 [facility] COLLECTION OF VENOUS BLOOD BY VENIPUNCTURE 12/27/19 11 [facility] INFLUENZA VIRUS VACCINE, TRIVALENT, LIVE (LAIV3), FOR INTRANASAL USE 09/28/20 08 [facility] THERAPEUTIC, PROPHYLACTIC OR DIAGNOSTIC INJECTION (SPECIFY SUBSTANCE OR DRUG); SUBCUTANEOUS OR INTRAMUSCULAR 06/26/20 08 [facility] IMMUNIZATION ADMINISTRATION (INCLUDES PERCUTANEOUS, INTRADERMAL, SUBCUTANEOUS, OR INTRAMUSCULAR INJECTIONS); 1 VACCINE (SINGLE OR COMBINATION VACCINE/TOXOID) 06/20/20 08 [facility] TETANUS, DIPHTHERIA TOXOIDS AND ACELLULAR PERTUSSIS VACCINE (TDAP), WHEN ADMINISTERED TO INDIVIDUALS 7 YEARS OR OLDER, FOR INTRAMUSCULAR USE 05/18/20 08 [facility] DETERMINATION OF REFRACTIVE STATE 05/15/20 08 [facility] COORDINATED CARE FEE, MAINTENANCE RATE 01/17/20 10 [facility] COORDINATED CARE FEE, MAINTENANCE RATE 01/15/20 10 [facility] FITTING OF SPECTACLES, EXCEPT FOR APHAKIA; MONOFOCAL 01/02/20 10 [facility] COORDINATED CARE FEE, MAINTENANCE RATE 01/02/20 10 Carlyle Bhat-Supervised Group Educational Services 01/01/20 11 PATTIE AREVALO ENT Services ENT Services [id number] 01/01/20 11 PATTIE AREVALO Audiometry Group Testing Audiometry Group Testing 87485 01/01/[address].-Supervised Services Provision Of Special Supplies -Supervised Services Provision Of Special Supplies 75554 01/01/[address] Services Analysis Of Computerized Data Special Bhat Services Analysis Of Computerized Data 95599 01/01/20 11 PATTIE AREVALO Threshold Audiogram (Pure Tone) Threshold Audiogram (Pure Tone) 84445 01/01/[address]Supervised Services Provision Of Special Supplies -Supervised Services Provision Of Special Supplies 52194 12/31/[address] Services Analysis Of Computerized Data Special Bhat Services Analysis Of Computerized Data 35562 12/31/[address]Supervised Group Educational Services 12/31/19 11 SAM DAVID Threshold Audiogram (Pure Tone) Threshold Audiogram (Pure Tone) 98724 12/31/19 11 SAM DAVID ENT Services ENT Services 24802 12/31/19 11 SAM DAVID Audiometry Group Testing Audiometry Group Testing 96858 12/31/19 11 SAM DAVID Coordinated care fee, maintenance rate 01/17/20 10 JUANITA HANSON [facility] Coordinated care fee, maintenance rate 01/15/20 10 ALIRIO RYAN [facility] Coordinated care fee, maintenance rate 01/02/20 10 TERESA YOST [facility] Influenza Virus Vaccine Live Intranasal 09/28/20 08 SANTHOSH MONROY [facility] Immunization Admin By Intranasal / Oral Route One Vaccine Immunization Admin By Intranasal / Oral Route One Vaccine 63580 09/28/20 08 MONROY [facility] Supervised Injection Intramuscular Supervised Injection Intramuscular 20031 06/26/20 08 JAIME LOPEZ Medication explained to soldier. Toradol 30 mg given IM in LVG by Spec Burdkeegan @ 1803. [place] tolerated procedure well DoD Immunization Administration One Vaccine Immunization Administration One Vaccine 76192 06/20/[address] [facility] Hepatitis A And Hepatitis B (Intramuscular Use) Adult Dosage Hepatitis A And Hepatitis B (Intramuscular Use) Adult Dosage 01182 06/20/[address] Tdap Vaccine Tdap Vaccine 67530 05/19/20 08 CATARINA CHASE [facility] Meningococcal Polysacch Diphtheria Toxoid Conjugate Vaccine 05/19/20 08 CATARINA CHASE [facility] Vaccines Viral Polio, Inactivated (Salk) Vaccines Viral Polio, Inactivated (Salk) 06992 05/19/20 08 CATARINA CHASE [facility] Skin Test Anergy Tuberculin Intradermal Skin Test Anergy Tuberculin Intradermal 94377 05/19/20 08 CATARINA CHASE [facility] Venipuncture Venipuncture 60592 05/19/[address] Supervised Injection Intramuscular Antibiotic Supervised Injection Intramuscular Antibiotic 65817 05/19/20 08 CATARINA CHASE [facility] Immunization Administration Each Additional Vaccine Immunization Administration Each Additional Vaccine 10510 05/19/20 08 CATARINA CHASE [facility] Immunization Administration One Vaccine Immunization Administration One Vaccine 39712 05/19/20 08 CATARINA CHASE [facility] Hepatitis B Vaccine (Active); 20 Years and Above Hepatitis B Vaccine (Active); 20 Years and Above 67015 05/19/20 08 CATARINA CHASE [facility] Vaccines Viral Measles, Mumps and Rubella, Live Vaccines Viral Measles, Mumps and Rubella, Live 63293 05/19/20 08 CATARINA CHASE Vaccines Viral Varicella (Active) Vaccines Viral Varicella (Active) 08251 05/19/20 08 CATARINA CHASE [facility] Determination Of Refractive State Determination Of Refractive State 18874 05/17/20 08 ALLI ADKINS Ophthalmological New Patient Start Comprehensive Care Ophthalmological New Patient Start Comprehensive Care 72148 05/17/20 08 ALLI ADKINS Spectacles Services Fitting Monofocals (Not For Aphakia) [facility] Fitting Monofocals (Not For Aphakia) 30479 05/17/20 08 ALLI ADKINS Social History Combined list of available smoking, tobacco, and other social history from Department of Defense and Veterans Affairs facilities. Social History Type Response Date Comment Sour e Tobacco smoking status SCIS VA-TOBACCO FORMER USER 11/18/2023 [facility] History of tobacco use VA-TOBACCO QUIT 5 TO < 15 YRS 11/18/2023 [facility] History of tobacco use VA-TOBACCO NEVER USED 09/01/2022 [facility] History of tobacco use VA-TOBACCO QUIT 5 TO < 15 YRS 09/30/2021 [facility] History of tobacco use VA-TOBACCO QUIT 5 TO < 15 YRS 12/05/2019 [facility] History of tobacco use VA-TOBACCO QUIT 5 TO < 15 YRS 03/01/2019 [facility] History of tobacco use FORMER TOBACCO US ER 7Y OR GREATER 04/27/2018 [facility] History of tobacco use FORMER TOBACCO US ER 7Y OR GREATER 07/25/2016 [facility] History of tobacco use CURRENT SMOKER 06/02/2014 [facility] History of tobacco use LIFETIME NON-USER OF TOBACCO 04/07/2012 [facility] History of tobacco use CURRENT NON-SMOKER 05/14/2011 [facility] This section is an empty social history section. [facility] Advance Directives List of completed, amended, or rescinded Advance Directives on record at Department of Veterans Affairs facilities. An actual copy of the Directive is not included. Date Advance Directive Provider Source 01/09/2025 ADVANCE DIRECTIVE KRUEGERJONATHAN DRUMMOND [facility] 12/19/2021 ADVANCE DIRECTIVE JONATHAN KRUEGER [facility]
[2025-05-03 16:17] LABS: Hematocrit 42.7 % (37-53); Hemoglobin 13.80 g/dL (11.27-16.99); Mean Corpuscular HGB Conc 32.3 g/dL (30-55); Mean Corpuscular Hemoglobin 28.9 pg (27-33); Mean Corpuscular Volume 89.3 fl (82-101); Nucleated Red Blood Cells % 0 %; Platelet Count 206 10^3/cmm (157-399); Red Blood Count 4.78 10^6/uL (3.85-5.65); White Blood Count 5.96 10^3/uL (3.29-11.43)
[2025-05-03 16:20] VITALS: BP 113/79; PULSE 81; RESP 16; TEMP 36.9; O2SAT 94
[2025-05-03 16:45] LABS: Glucose Urine UA Negative (Normal); Nitrate Urine Negative (Negative); Specific Gravity, Urine 1.023 (1.005-1.030)
--- NOTE | 2025-05-03 16:45 | PC.PHAR ---
Addendum entered by Kelsy Molina 05/03/25 16:53: Pt does not know what medications he takes but he did take his morning meds. [facility]. Original Note: [facility] is [facility] list 05/03/25 4:45pm
[2025-05-03 16:48] LABS: Add Urine Microscopic? YES
[2025-05-03 17:01] LABS: Alanine Aminotransferase 14 U/L (0-41); Albumin Level 4.2 g/dL (3.5-5.2); Alkaline Phosphatase 74 U/L (40-130); Anion Gap 16.3 (5-19); Aspartate Amino Transferase 18 U/L (0-40); Blood Urea Nitrogen 16 mg/dL (6-20); Calcium 9.1 mg/dL (8.5-10.5); Carbon Dioxide 27 mmol/L (22-29); Chloride 100 mmol/L (98-107); Globulin 3.4 g/dL (1.3-4.6); Glucose 96 mg/dL (65-115); Osmolality Calculated 289 mOsm/kg (285-295); Potassium 4.3 mmol/L (3.5-5.1); Sodium 139 mmol/L (136-145); Thyroid Stimulating Hormone 0.43 uIU/mL (0.27-4.20); Total Protein 7.6 g/dL (6.6-8.7)
[2025-05-03 17:02] LABS: PCP Screen Urine Negative (Negative)
[2025-05-03 17:02] LABS: Acetaminophen < 5.0 ug/mL (10-30); Alcohol Level < 10 mg/dL (0-10); Salicylate < 0.3 mg/dL (3-10)
--- NOTE | 2025-05-03 17:30 | PC.NURSE ---
96 hr rights reviewed with pt @40831 with assistance of [facility] chief business development officer Mauricio Walters. All education reviewed with pt at this time. Pt verbalized understanding to hold parameters. Pt copy was left @bedside with pt. Pt declined wanting a drink or snack, but did ask that he be transferred to a [place] psych facility if able to be. HS notified ER UC of pt request. No further needs.
[2025-05-03 18:37] VITALS: PULSE 76; O2SAT 99
--- NOTE | 2025-05-03 19:06 | XRR_ITS ---
PROCEDURE INFORMATION: Exam: XR Chest Exam date and time: 05/03/2025 7:07 PM Age: 39 years old Clinical indication: Screening exam; Other screening; Additional info: Medical clearance TECHNIQUE: Imaging protocol: Radiologic exam of the chest. Views: 1 view. COMPARISON: CR XR chest 2V* [id number] 04/18/2020 12:28 PM FINDINGS: Lungs: Unremarkable. No consolidation. Pleural spaces: Unremarkable. No pleural effusion. No pneumothorax. Heart/Mediastinum: Unremarkable. No cardiomegaly. Bones/joints: Unremarkable. XR/XR chest 1V [id number] IMPRESSION: No acute findings.
[2025-05-03 20:26] LABS: Respiratory Syncytial Virus Ce NEGATIVE (Negative); SARS-CoV-2 PCR NEGATIVE (Negative)
--- NOTE | 2025-05-04 10:45 | W.ED.PSYCHS ---
HPI - Psych General: Chief Complaint: Psychiatric Symptoms Stated Complaint: 96 Time Seen by Provider: 05/03/25 15:44 History of Present Illness: 39-year-old man who is here on a 96-hour court ordered hold who is awaiting placement. Still no placement elsewhere and it appears we will get beds today so he will be admitted here. Related Data Home Medications ?Medication ?Instructions ?Recorded ?Confirmed balsalazide 750 mg capsule 750 mg PO TID 12/13/19 05/04/25 (Colazal) melatonin 3 mg capsule 6 mg PO .at bedtime 12/13/19 05/04/25 cholecalciferol (vitamin D3) 50 2,000 unit PO DAILY 01/12/20 05/04/25 mcg (2,000 unit) tablet pantoprazole 40 mg tablet,delayed 40 mg PO BID 08/15/20 05/04/25 release acetaminophen 325 mg tablet 650 mg PO QID PRN Fever Or Pain 05/04/25 05/04/25 (Tylenol) clobetasol 0.05 % topical cream 1 applic topical DAILY PRN 05/04/25 05/04/25 psoriasis fluoxetine 40 mg capsule 80 mg PO QAM 05/04/25 05/04/25 ondansetron HCl 4 mg tablet 4 mg PO Q8H PRN Nausea And Vomiting 05/04/25 05/04/25 Previous Rx's ?Medication ?Instructions ?Recorded Low profile custom insoles #2 ea 08/15/24 meloxicam 15 mg tablet 15 mg PO DAILY #30 tabs 09/26/24 Allergies Allergy/AdvReac Type Severity Reaction Status Date / Time anthrax vaccine Allergy Unknown Verified 09/26/24 09:28 Penicillins Allergy Unknown Verified 09/26/24 09:28 Review of Systems Narrative: Constitutional symptoms: Negative except as documented in HPI. Skin symptoms: Negative except as documented in HPI. Eye symptoms: Negative except as documented in HPI. ENMT symptoms: Negative except as documented in HPI. Respiratory symptoms: Negative except as documented in HPI. Cardiovascular symptoms: Negative except as documented in HPI. Gastrointestinal symptoms: Negative except as documented in HPI. Genitourinary symptoms: Negative except as documented in HPI. Musculoskeletal symptoms: Negative except as documented in HPI. Neurologic symptoms: Negative except as documented in HPI. Psychiatric symptoms: Negative except as documented in HPI. Endocrine symptoms: Negative except as documented in HPI. PFSH ED PFSH: Medical History (Updated 05/03/25 @ 16:44 by Heaven Tan MD) Chest wall pain Fall (on) (from) other stairs and steps, sequela Morfin esophagus Depression Crohn's disease Surgical History History of umbilical hernia repair (~12/2019) History of colon resection (2018) History of esophagogastroduodenoscopy (EGD) (~2018) History of colonoscopy (~2018) Family History Denies family history of Anesthesia complication Bleeding disorder Social History Smoking and tobacco/nicotine status: former use of tobacco/nicotine Second hand smoke exposure: No Alcohol intake: never Substance/Drug Use: never Adopted: No Caregiver/support person: Yes Lives independently: Yes Household members: spouse Housing: House Marital status: Physical Exam Narrative: EXAM NARRATIVE: General: Alert, no acute distress. Skin: Warm, dry. Head: Normocephalic, atraumatic. Neck: Supple, trachea midline. Eye: Extraocular movements are intact. Ears, nose, mouth and throat: mucosa moist. Cardiovascular: Regular, Normal peripheral perfusion. Respiratory: Lungs are clear to auscultation, respirations are non-labored, breath sounds are equal, Symmetrical chest wall expansion. Gastrointestinal: Soft, Nontender, Non distended Musculoskeletal: Normal ROM, no deformity. Neurological: Alert and oriented, No focal neurological deficit observed. Psychiatric: Cooperative, appropriate mood & affect. Course Vital Signs: Vital signs: Vital Signs Temperature 98.4 F 05/03/25 16:20 Pulse Rate 76 05/03/25 18:37 Respiratory Rate 16 05/03/25 16:20 Blood Pressure 113/79 05/03/25 16:20 Pulse Oximetry 99 05/03/25 18:37 Oxygen Delivery Me thod Room Air 05/03/25 16:20 [facility] - Psych Medical Decision Making Consultation: I spoke with Dr. Collier who says there should be a bed clearing up today and he accepts the patient to admission. Assessment and plan: Suicidal ideation Homicidal ideation -Admission to neuropsychiatric unit for continued evaluation and treatment. - Evaluation and treatment of this problem were appropriate in the emergency setting Lab Data 05/03/25 16:10 05/03/25 16:10 Radiology Impressions Chest X-Ray 05/03/25 19:06 IMPRESSION: No acute findings. Laboratory Results WBC 5.96 10^3/uL (3.29-11.43) 05/03/25 16:10 RBC 4.78 10^6/uL (3.85-5.65) 05/03/25 16:10 Hgb 13.80 g/dL (11.27-16.99) 05/03/25 16:10 Hct 42.7 % (37-53) 05/03/25 16:10 MCV 89.3 fl (82-101) 05/03/25 16:10 MCH 28.9 pg (27-33) 05/03/25 16:10 MCHC 32.3 g/dL (30-55) 05/03/25 16:10 RDW 13.5 % (12.1-15.1) 05/03/25 16:10 Plt Count 206 10^3/cmm (157-399) 05/03/25 16:10 MPV 11.0 fL (7.4-10.4) H 05/03/25 16:10 Neut % (Auto) 54.2 % 05/03/25 16:10 Lymph % (Auto) 34.7 % 05/03/25 16:10 Fleming % (Auto) 8.1 % 05/03/25 16:10 Eos % (Auto) 1.5 % 05/03/25 16:10 Baso % (Auto) 1.2 % 05/03/25 16:10 Neut # (Auto) 3.23 10^3/uL (1.8-7.7) 05/03/25 16:10 Lymph # (Auto) 2.1 10^3/uL (0.8-4.8) 05/03/25 16:10 Fleming # (Auto) 0.5 10^3/uL (0.2-0.9) 05/03/25 16:10 Eos # (Auto) 0.1 10^3/uL (0.0-0.8) 05/03/25 16:10 Baso # (Auto) 0.1 10^3/uL (0.0-0.1) 05/03/25 16:10 Nucleated RBC % (auto) 0 % 05/03/25 16:10 Nucleated RBCs # 0.0 /100WBC 05/03/25 16:10 Sodium 139 mmol/L (136-145) 05/03/25 16:10 Potassium 4.3 mmol/L (3.5-5.1) 05/03/25 16:10 Chloride 100 mmol/L (98-107) 05/03/25 16:10 Carbon Dioxide 27 mmol/L (22-29) 05/03/25 16:10 Anion Gap 16.3 (5-19) 05/03/25 16:10 BUN 16 mg/dL (6-20) 05/03/25 16:10 Creatinine 0.7 mg/dL (0.7-1.2) 05/03/25 16:10 GFR Calculation 126.2 mL/min (90-130) 05/03/25 16:10 Glucose 96 mg/dL (65-115) 05/03/25 16:10 Calculated Osmolality 289 mOsm/kg (285-295) 05/03/25 16:10 Calcium 9.1 mg/dL (8.5-10.5) 05/03/25 16:10 Total Bilirubin 0.4 mg/dL (0.15-1.2) 05/03/25 16:10 AST 18 U/L (0-40) 05/03/25 16:10 ALT 14 U/L (0-41) 05/03/25 16:10 Alkaline Phosphatase 74 U/L (40-130) 05/03/25 16:10 Total Protein 7.6 g/dL (6.6-8.7) 05/03/25 16:10 Albumin 4.2 g/dL (3.5-5.2) 05/03/25 16:10 Globulin 3.4 g/dL (1.3-4.6) 05/03/25 16:10 TSH 0.43 uIU/mL (0.27-4.20) 05/03/25 16:10 Urine Color Yellow (Yellow) 05/03/25 16:32 Urine Appearance Clear (CLEAR) 05/03/25 16:32 Urine pH 6.5 (5-7) 05/03/25 16:32 Ur Specific Hunt 1.023 (1.005-1.030) 05/03/25 16:32 Urine Protein Negative (Negative) 05/03/25 16:32 Urine Glucose (UA) Negative (Normal) 05/03/25 16:32 Urine Ketones Trace (Negative) 05/03/25 16:32 Urine Blood Negative (Negative) 05/03/25 16:32 Urine Nitrate Negative (Negative) 05/03/25 16:32 Urine Bilirubin Negative (Negative) 05/03/25 16:32 Urine Urobilinogen 0.2 mg/dL (Negative) 05/03/25 16:32 Ur Leukocyte Esterase Negative (Negative) 05/03/25 16:32 Urine RBC 0-2 /hpf (0-2) 05/03/25 16:32 Urine WBC 0-5 /hpf (0-5) 05/03/25 16:32 Ur Squamous Epith Cells 0-5 /hpf (0-5) 05/03/25 16:32 Amorphous Sediment Not Reportable 05/03/25 16:32 Urine Bacteria None seen /hpf (NONE) 05/03/25 16:32 Hyaline Casts 0-4 /lpf H 05/03/25 16:32 Salicylates < 0.3 mg/dL (3-10) L 05/03/25 16:10 Urine Opiates Screen Negative ng/mL (Negative) 05/03/25 16:32 Acetaminophen < 5.0 ug/mL (10-30) L 05/03/25 16:10 Ur Barbiturates Screen Negative ng/mL (Negative) 05/03/25 16:32 Ur Phencyclidine Scrn Negative ng/mL (Negative) 05/03/25 16:32 Ur Amphetamines Screen Negative ng/mL (Negative) 05/03/25 16:32 U Benzodiazepines Scrn Negative ng/mL (Negative) 05/03/25 16:32 Urine Cocaine Screen Negative ng/mL (Negative) 05/03/25 16:32 U Marijuana (THC) Screen Positive ng/mL (Negative) H 05/03/25 16:32 Ethyl Alcohol < 10 mg/dL (0-10) 05/03/25 16:10 Influenza A (PCR) Negative (Negative) 05/03/25 19:15 Influenza Type B (PCR) Negative (Negative) 05/03/25 19:15 RSV (PCR) Negative (Negative) 05/03/25 19:15 SARS-CoV-2 (PCR) Negative (Negative) 05/03/25 19:15 No radiology studies performed this visit Discharge Plan Discharge Patient Disposition: Admitted As Inpatient Clinical Impression: Suicidal ideation Condition: Stable Coding Level of Care Code ED Environmental Sciences Professor for Sahil Dominguez
[2025-05-04 11:12] VITALS: BP 111/77; PULSE 78; RESP 18; TEMP 36.7; O2SAT 98
--- NOTE | 2025-05-04 14:37 | PC.NURSE ---
per Dr. Anderson to allow pt to use personal cellphone to retrieve phone numbers and to use [employer] phone to contact family. pt obtained numbers from phone and was provided pen/paper to write personal cell numbers down. pt returned pen and personal cellphone after obtaining numbers. also returned [employer] phone after making personal phone calls.
--- NOTE | 2025-05-04 16:27 | PC.NURSE ---
I was advised the patient requested to go to the [facility] when i called and left multiple voicemails never got a call back. i tried again today to get the patient transfered or get a auth to keep the patient here i spoke to Charlotte Bond at [phone] she called the community care community mental health social worker Brenda at [phone] she advised me it was approved and they would call our community mental health social worker her at [facility] and give the approval and information for the patient to get admitted here.
[2025-05-04 16:34] VITALS: BP 128/83; PULSE 69; RESP 17; TEMP 36.9; O2SAT 99
--- NOTE | 2025-05-04 18:32 | PC.ADMIT ---
[id number] HI [id number] Admission Note:Pt was brought to the ED by PD for reports of SI/HI. In the affidavite it was noted that he wanted his son to kill him. He was placed on a 96 hour hold that ends on 05/09/25@1600. His UDS was positive for THC. No PRN meds had been given as he remained calm and cooperative in the ER. Pt states that him and his have been seperated for approx 3 months and he has been homeless living in his car. He reports working at [employer]. He states that him and his had a meeting with his research attorney and when his found out she wasn't getting all the things that she wanted in the divorce she went and had him arrested and put in here. He receives most to all of his care at the [facility]. Pt reports a medical hx of Crohns, Multiple Myeloma, and Morfin's esophagus. He states that he get his treatment for Multiple Myeloma at [facility] in [place]. His surgical hx consists of an umbilical hernia repair and GI resection. He is calm and cooperative during assessment and having moments of being tearful. States that he is hurt. The patient,Marcello Rubio,39 y/o, was given written information regarding hospital policies, unit procedures and contact persons. Patient's smoking status: former smoker. Vital Signs - 8 hr 05/04/25 11:12 05/04/25 16:36 Temperature 98.1 F Pulse Rate 78 Respiratory Rate 18 Blood Pressure 111/77 Pulse Oximetry 98 Oxygen Delivery Method Room Air
[2025-05-04 22:00] VITALS: BP 116/78; PULSE 68; RESP 18; TEMP 36.9; O2SAT 98
[2025-05-05 06:00] VITALS: BP 121/82; PULSE 93; RESP 18; TEMP 36.5; O2SAT 99
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
[2025-05-05 14:00] VITALS: BP 145/78; PULSE 67; RESP 16; TEMP 37; O2SAT 96
[2025-05-05 20:18] VITALS: BP 113/68; PULSE 67; RESP 16; TEMP 37.1; O2SAT 95
[2025-05-06 06:00] VITALS: BP 114/71; PULSE 98; RESP 18; TEMP 36.7; O2SAT 96
--- NOTE | 2025-05-06 13:20 | P.NPUPN_ITS ---
Subjective NPU 2 Subjective: Patient presented today reporting that he is doing okay. We discussed the fact that his records review shows that at some point he was taking 80 mg of Prozac daily which means that that titration happened over some significant period of time. He reported not remembering taking it or what it was for. We discussed the fact that we feel that he is being a little less open and likely being disingenuous about not knowing about a medication that he got titrated that many times. However we discussed the possibility of discharge tomorrow versus Thursday. Reached out to his friend and nursing documented that this friend reports that he has the patient's guns. Mental Status Exam 2 MSE Comments: This is a well-nourished well-developed white male in hospital scrubs with adequate grooming and eye contact. No abnormal movements except for mild psychomotor retardation. Cooperative with exam in mild distress. Speech was slightly decreased rate and volume. Mood described as as good as can be expected, affect appeared calm. Thought process linear. Thought content: Patient denied suicidal or homicidal ideation, there were no delusions reported or noted, he denied any auditory or visual hallucinations. Denied any current thoughts of self-harm or harm to others. Denied experiencing visual hallucinations or delusions. Reported feeling anxious, particularly related to marital separation and legal issues. Significant stressors include marital separation, legal issues, and a recent cancer diagnosis. Described mood as great at the time of the interview, though initially shitty upon arrival. Attention and concentration were intact and memory appeared reliable but none were formally tested. He is alert and oriented x 3. Insight and judgment appear fair and impulse control appeared fair as well. Vitals/I&O/Wt Last Vital Signs Temp 98.0 F 05/06/25 06:00 Pulse 98 05/06/25 06:00 Resp 18 05/06/25 06:00 BP 114/71 05/06/25 06:00 Pulse Ox 96 05/06/25 06:00 O2 Del Method Room Air 05/06/25 06:00 Weight last 48 hrs Weight 87.26 kg Data NPU 05/03/25 16:10 05/03/25 16:10 A&P Assessment and plan 1. Suicidal ideation: 2. Adjustment disorder with mixed disturbance of emotions and conduct: 3. Marital/partner relational problem: 4. Parent-child relational problem: 5. Cannabis use disorder: 6. PTSD (post-traumatic stress disorder): 7. Depression: Plan: This is a 39-year-old white male with limited past mental health issues outside of PTSD from his background with recent conflicts with his which have led to separation and now her filing a 96-hour hold. The patient is experiencing significant emotional distress due to ongoing marital issues, including a separation and legal disputes with his . There is a history of PTSD related to service, but the patient is not currently under psychiatric care for this condition. The patient denies current suicidal or homicidal ideation. There is no current diagnosis of depression or anxiety, although the patient reports feeling overwhelmed by the current situation. The patient has a history of trauma from childhood, which has not been previously disclosed or addressed. 1. Recommend antidepressant/antianxiety medication. Patient not interested in medication and it appears that at some point he was on 80 mg of Prozac and so there is likely some underrepresentation a past history of mental health treatment. 2. Continue to-15 minute checks, 3.? Encourage individual, group and milieu therapy. 4.? Will attempt to gather collateral information. 5. Encourage sober living treatment after discharge at the highest level care to which he is willing to commit. 6. Observe against the backdrop of the 96-hour hold. PDMP PDMP Reviewed: Not Reviewed Involuntary Hold Information 2 Hold Status: Legal Status: 96 Hour Hold Date/Time Hold Expires: 0 05/09/25@1600 Attestations NPU 2 Medical Necessity Statement*: Inpatient hospitalization is medically necessary and the clinically appropriate intervention at this time. Will monitor/initiate medications and make changes as indicated. Likely length of stay 1-3 days. Coding Level of Care Code Acute Code for Chg Fwd Diagnoses Suicidal ideation R45.851 Adjustment disorder with mixed disturbance of emotions and conduct F43.25 Marital/partner relational problem Z63.0 Parent-child relational problem Z62.820 Cannabis use disorder F12.90 PTSD (post-traumatic stress disorder) F43.10 Depression F32.A
[2025-05-06 14:00] VITALS: BP 126/76; PULSE 83; RESP 18; TEMP 37.2; O2SAT 97
[2025-05-06 20:22] VITALS: BP 111/71; PULSE 87; RESP 18; TEMP 37.1; O2SAT 99
[2025-05-07 06:00] VITALS: BP 115/71; PULSE 98; RESP 17; TEMP 36.6; O2SAT 98; BMI 30.1
--- NOTE | 2025-05-07 12:09 | W.PM.NPUDCS ---
Diagnoses at Discharge Discharge Diagnosis 1. Suicidal ideation: 2. Adjustment disorder with mixed disturbance of emotions and conduct: 3. Marital/partner relational problem: 4. Parent-child relational problem: 5. Cannabis use disorder: 6. PTSD (post-traumatic stress disorder): 7. Depression: Reason for Visit Reason for Visit: 96 Involuntary Hold Information Hold Status: Legal Status: 96 Hour Hold Date/Time Hold Expires: 05/09/25@1600 Discharge Data Studies Completed and Pending: Completed Studies During Hospitalization Category Date Time Status XR chest 1V [id number] Stat Exams 05/03/25 19:06 Completed Radiology Impressions Chest X-Ray 05/03/25 19:06 IMPRESSION: No acute findings. Laboratory Results WBC 5.96 10^3/uL (3.2 9-11.43) 05/03/25 16:10 RBC 4.78 10^6/uL (3.8 5-5.65) 05/03/25 16:10 Hgb 13.80 g/dL (11.27 -16.99) 05/03/25 16:10 Hct 42.7 % (37-53) 05/03/25 16:10 MCV 89.3 fl (82-101) 05/03/25 16:10 MCH 28.9 pg (27-33) 05/03/25 16:10 MCHC 32.3 g/dL (30-55) 05/03/25 16:10 RDW 13.5 % (12.1-15.1 ) 05/03/25 16:10 Plt Count 206 10^3/cmm (157 -399) 05/03/25 16:10 MPV 11.0 fL (7.4-10.4 ) H 05/03/25 16:10 Neut % (Auto) 54.2 % 05/03/25 16:10 Lymph % (Auto) 34.7 % 05/03/25 16:10 [place] % (Auto) 8.1 % 05/03/25 16:10 Eos % (Auto) 1.5 % 05/03/25 16:10 Baso % (Auto) 1.2 % 05/03/25 16:10 Neut # (Auto) 3.23 10^3/uL (1.8 -7.7) 05/03/25 16:10 Lymph # (Auto) 2.1 10^3/uL (0.8- 4.8) 05/03/25 16:10 [place] # (Auto) 0.5 10^3/uL (0.2- 0.9) 05/03/25 16:10 Eos # (Auto) 0.1 10^3/uL (0.0- 0.8) 05/03/25 16:10 Baso # (Auto) 0.1 10^3/uL (0.0- 0.1) 05/03/25 16:10 Nucleated RBC % (a uto) 0 % 05/03/25 16:10 Nucleated RBCs # 0.0 /100WBC 05/03/25 16:10 Sodium 139 mmol/L (136-1 45) 05/03/25 16:10 Potassium 4.3 mmol/L (3.5-5 .1) 05/03/25 16:10 Chloride 100 mmol/L (98-10 7) 05/03/25 16:10 Carbon Dioxide 27 mmol/L (22-29) 05/03/25 16:10 Anion Gap 16.3 (5-19) 05/03/25 16:10 BUN 16 mg/dL (6-20) 05/03/25 16:10 Creatinine 0.7 mg/dL (0.7-1. 2) 05/03/25 16:10 GFR Calculation 126.2 mL/min (90- 130) 05/03/25 16:10 Glucose 96 mg/dL (65-115) 05/03/25 16:10 Calculated Osmolal ity 289 mOsm/kg (285- 295) 05/03/25 16:10 Calcium 9.1 mg/dL (8.5-10 .5) 05/03/25 16:10 Total Bilirubin 0.4 mg/dL (0.15-1 .2) 05/03/25 16:10 AST 18 U/L (0-40) 05/03/25 16:10 ALT 14 U/L (0-41) 05/03/25 16:10 Alkaline Phosphata se 74 U/L (40-130) 05/03/25 16:10 Total Protein 7.6 g/dL (6.6-8.7 ) 05/03/25 16:10 Albumin 4.2 g/dL (3.5-5.2 ) 05/03/25 16:10 Globulin 3.4 g/dL (1.3-4.6 ) 05/03/25 16:10 TSH 0.43 uIU/mL (0.27 -4.20) 05/03/25 16:10 Urine Color Yellow (Yellow) 05/03/25 16:32 Urine Appearance Clear (CLEAR) 05/03/25 16:32 Urine pH 6.5 (5-7) 05/03/25 16:32 Ur Specific Gravit y 1.023 (1.005-1.0 30) 05/03/25 16:32 Urine Protein Negative (Negati ve) 05/03/25 16:32 Urine Glucose (UA) Negative (Normal ) 05/03/25 16:32 Urine Ketones Trace (Negative) 05/03/25 16:32 Urine Blood Negative (Negati ve) 05/03/25 16:32 Urine Nitrate Negative (Negati ve) 05/03/25 16:32 Urine Bilirubin Negative (Negati ve) 05/03/25 16:32 Urine Urobilinogen 0.2 mg/dL (Negati ve) 05/03/25 16:32 Ur Leukocyte Daniela ase Negative (Negati ve) 05/03/25 16:32 Urine RBC 0-2 /hpf (0-2) 05/03/25 16:32 Urine WBC 0-5 /hpf (0-5) 05/03/25 16:32 Ur Squamous Epith Cells 0-5 /hpf (0-5) 05/03/25 16:32 Amorphous Sediment Not Reportable 05/03/25 16:32 Urine Bacteria None seen /hpf (N ONE) 05/03/25 16:32 Hyaline Casts 0-4 /lpf H 05/03/25 16:32 Salicylates < 0.3 mg/dL (3-10 ) L 05/03/25 16:10 Urine Opiates Scre en Negative ng/mL (N egative) 05/03/25 16:32 Acetaminophen < 5.0 ug/mL (10-3 0) L 05/03/25 16:10 Ur Barbiturates Sc reen Negative ng/mL (N egative) 05/03/25 16:32 Ur Phencyclidine S crn Negative ng/mL (N egative) 05/03/25 16:32 Ur Amphetamines Sc reen Negative ng/mL (N egative) 05/03/25 16:32 U Benzodiazepines Scrn Negative ng/mL (N egative) 05/03/25 16:32 Urine Cocaine Scre en Negative ng/mL (N egative) 05/03/25 16:32 U Marijuana (THC) Screen Positive ng/mL (N egative) H 05/03/25 16:32 Ethyl Alcohol < 10 mg/dL (0-10) 05/03/25 16:10 Influenza A (PCR) Negative (Negati ve) 05/03/25 19:15 Influenza Type B ( PCR) Negative (Negati ve) 05/03/25 19:15 RSV (PCR) Negative (Negati ve) 05/03/25 19:15 SARS-CoV-2 (PCR) Negative (Negati ve) 05/03/25 19:15 Vitals: Last Vital Signs Temp 97.8 F 05/07/25 06:00 Pulse 98 05/07/25 06:00 Resp 17 05/07/25 06:00 BP 115/71 05/07/25 06:00 Pulse Ox 98 05/07/25 06:00 O2 Del Method Room Air 05/07/25 06:00 Discharge Plan Discharge Patient Disposition: Home Condition: Stable Prescriptions: Continued cholecalciferol (vitamin D3) 2,000 unit tablet 2,000 unit PO DAILY melatonin 3 mg capsule 6 mg PO .at bedtime balsalazide [Colazal] 750 mg capsule 750 mg PO TID pantoprazole 40 mg tablet,delayed release (DR/EC) 40 mg PO BID (DME) Low profile custom insoles See Rx Instructions .Route .MEDSUPPLY Qty: 2 0RF Rx Instructions: [facility] directed By [facility] meloxicam 15 mg tablet 15 mg PO DAILY Qty: 30 3RF ondansetron HCl [Zofran] 4 mg Tablet 4 mg PO Q8H PRN (Reason: Nausea And Vomiting) clobetasol 0.05 % Cream 1 applic TOPICAL DAILY PRN (Reason: psoriasis) Discontinued acetaminophen [Tylenol] 325 mg Tablet 650 mg PO QID PRN (Reason: Fever Or Pain) fluoxetine 40 mg Capsule 80 mg PO QAM Discharge Order = DC NOW: Discharge Order (Routine); Ordered 05/07/25 Ordered By: Emiliano Collier Referrals: Faby Medley FNP [Primary Care Provider, Nurse Practitioner] Discharge Diet: Regular Discharge Activity: Resume usual activity Patient Instructions: Opioid Safety, Patient Portal & [facility] Instructions Coding Level of Care Code Acute Code for Chg Fwd Diagnoses Suicidal ideation R45.851 Adjustment disorder with mixed disturbance of emotions and conduct F43.25 Marital/partner relational problem Z63.0 Parent-child relational problem Z62.820 Cannabis use disorder F12.90 PTSD (post-traumatic stress disorder) F43.10 Depression F32.9
[2025-05-07 13:28] VITALS: BP 115/71; PULSE 98; RESP 17; TEMP 36.6; O2SAT 98
== END 2025-05-07 14:03 | disposition home or self-care (01) | DRG 882 ==
LOC: ER 05-04 10:48 → ER IP 05-04 12:51 → NP 05-04 16:12
PROVIDERS: Admitting Provider Psychiatry & Neurology Psychiatry; Emergency Provider Emergency Medicine; PCP Nurse Practitioner; Visit Provider Psychiatry & Neurology Psychiatry
DX: F43.25 Adjustment disorder with mixed disturbance of emotions and conduct (principal); R45.851 Suicidal ideations; K50.90 Crohn's disease, unspecified, without complications; F43.10 Post-traumatic stress disorder, unspecified; F32.A Depression, unspecified; K22.70 Barrett's esophagus without dysplasia; Z63.0 Problems in relationship with spouse or partner; Z87.891 Personal history of nicotine dependence; Z90.49 Acquired absence of other specified parts of digestive tract
CPT/HCPCS: 36415; 71045; 80053; 80306; 80307; 81001; 84443; 85025; 87637; 93005; 97165; 99285